=== PATIENT | male | born 1950 | race Caucasian/White ===

== ENCOUNTER 2020-06-25 12:00 | Outpatient (RCR) | payer MEDICARE, BC, SELFPAY | END 2020-06-25 12:58 | disposition other institution (70) | LOC: HO.PT 12:00 | PROVIDERS: PCP Internal Medicine; Visit Provider Specialist | DX: Z47.89 Encounter for other orthopedic aftercare (principal) | CPT/HCPCS: 97110; 97112; 97116; 97162 ==

== ENCOUNTER 2020-12-01 14:00 | Outpatient (RCR) | payer MEDICARE, BC, SELFPAY | END 2020-12-03 09:00 | disposition home or self-care (01) | LOC: HO.PT 14:00 | PROVIDERS: PCP Internal Medicine; Visit Provider Internal Medicine | DX: M50.020 Cervical disc disorder with myelopathy, mid-cervical region, unspecified level (principal) | CPT/HCPCS: 97110; 97112; 97116; 97162; 97530 ==

== ENCOUNTER 2022-07-13 04:57 | Inpatient (IN) | payer MEDICARE, BC, SELFPAY ==
[2022-07-13] VITALS (8 sets, daily range): BP systolic 98–140; BP diastolic 47–80; PULSE 67–102; RESP 16–22; TEMP 36.8–37.4; O2SAT 93–98; BMI 24.1
--- NOTE | ~2022-07-13 | XR_ITS ---
EXAMINATION: XR CHEST CLINICAL INFORMATION: Cough COMPARISON: None TECHNIQUE: Frontal view of the chest was obtained. FINDINGS: Normal symmetric lung volumes. Right lower lobe/basilar opacity partially obscures the medial right hemidiaphragm. No pleural effusion. No pneumothorax. Cardiomediastinal silhouette and pulmonary vascularity are within normal limits. Aorta is atherosclerotic. No acute osseous abnormalities. XR/XR chest 1V IMPRESSION: Right lower lobe/basilar opacity could represent atelectasis or infiltrate.
--- NOTE | 2022-07-13 05:03 | ECG_ITS ---
Test Reason : weakness Blood Pressure : / mmHG Vent. Rate : 089 BPM Atrial Rate : 089 BPM P-R Int : 160 ms QRS Dur : 072 ms QT Int : 344 ms P-R-T Axes : 056 041 091 degrees QTc Int : 418 ms Normal sinus rhythm Nonspecific ST and T wave abnormality Abnormal ECG No previous ECGs available Referred By: Gracie Brito Electronically Signed By:JO ANN PINA
--- NOTE | 2022-07-13 05:36 | ED_ITS ---
HPI - Male Genitourinary General Chief complaint: Urogenital-Male Stated complaint: uti? sepsis? Time Seen by Provider: 07/13/22 05:01 Source: patient Mode of arrival: EMS History of Present Illness HPI Narrative: 71-year-old male states that he went to work yesterday but then throughout the day he began to feel worse and worse and reports that he has had multiple at difficulties with urinating that he describes as urinary frequency but otherwise denies any shortness of breath/chest pain, he also denies any nausea, vomiting, abdominal pain but states that he has been sweating and suffers from chills. He denies any history of renal colic. Related Data Allergies Allergy/AdvReac Type Severity Reaction Status Date / Time Unable to Assess Allergy Verified 07/13/22 05:02 Review of Systems Review of Systems: Pertinent positives and negatives as stated in HPI [facility] Past Medical History Source: nursing notes reviewed Social History Social History Alcohol intake: former Smoked in Last 30 Days: No Use of substances other than those prescribed or required for medical reasons: No Advance Directives: No Advance Directives Information Provided: Yes Physical Exam Vital Signs: Vital Signs: Last Vital Signs Temp 99.3 F 07/13/22 05:03 Pulse 76 07/13/22 06:32 Resp 16 07/13/22 06:32 BP 102/47 L 07/13/22 06:32 Pulse Ox 95 07/13/22 06:32 O2 Del Method 07/13/22 06:32 BMI result Body Mass Index 24.1 VITAL SIGNS: Reviewed. GENERAL: Well developed, well nourished, in no acute distress. HEAD: Normocephalic/atraumatic EYES: PERRLA, EOMI OROPHARYNX: no oral lesions noted, posterior pharynx clear LUNGS: Normal breath sounds. No adventitious sounds or accessory muscle use. SpO2<93> CARDIOVASCULAR: Regular rate and rhythm without noted murmurs, no JVD or lower extremity edema. ABDOMEN: Soft, mild tenderness to palpation over suprapubic, non-distended with bowel sounds. MUSCULOSKELETAL: No tenderness, deformities, or effusions noted on gross inspection. EXTREMITIES: No cyanosis, clubbing or edema. SKIN: Inspection of the skin reveals no rashes, diaphoresis+ NEUROLOGIC: Alert and oriented x 3. Strength and sensation to light touch were grossly intact x 4. Medications Administered Discontinued Medications Generic Name Dose Route Start Last Admin Trade Name Freq PRN Reason Stop Dose Admin Ceftriaxone Sodium 1 gm/ 50 mls @ 100 mls/hr 07/13/22 05:21 07/13/22 06:18 Sodium Chloride IV 07/13/22 05:50 Infused ONCE ONE Infusion Sodium Chloride 1,000 mls @ 999 mls/hr 07/13/22 05:30 07/13/22 05:43 Ns IV 07/13/22 06:30 999 mls/hr .Q1H1M [place] Administration Medical Decision Making Medical Decision Making [facility] Narrative: 0502: This is a 71-year-old male with history and clinical presentation suggestive of sepsis with UTI. Patient received labs, IV fluids, lactic acid, blood cultures, antibiotics. Reviewed all investigations and my interpretation is that this patient has sepsis acute UTI, he received antibiotics already, I acknowledge that chest x- ray shows possible atelectasis versus infiltrate, based on the absence of cough or difficulty breathing I feel that this is more consistent with atelectasis. I did notify the hospitalist and patient is acute for admission. Differential Diagnosis Please see the discussion above Admission/Observation Consideration of admission/observation: Escalation of care including admission/observation considered Patient will be admitted Consult Healthcare Provider Management of the patient was discussed with: Hospitalist [id number]: I discussed this with the hospitalist who will review the case. Lab Data Please see the discussion above 07/13/22 05:41 07/13/22 05:41 Labs: Lab Results 07/13/22 07/13/22 07/13/22 Range/Units 05:41 05:41 05:41 WBC 11.9 H (4.8-10.8) X10*3/uL RBC 4.19 L (4.60-5.80) X10*6/uL Hgb 12.9 L (14.0-18.0) g/dl Hct 37.3 L (42.0-52.0) % MCV 89.0 (80.0-98.0) fL MCH 30.8 (27.0-33.0) pg MCHC 34.6 (31.0-36.0) g/dl RDW 11.5 (11.0-16.0) % Plt Count 185 (160-400) X10*3/uL MPV 10.5 (9.4-12.4) fL Immature Gran % (Auto) 0.7 H (0.0-0.4) % Neut % (Auto) 85.1 H (45-73) % Lymph % (Auto) 6.1 L (20-40) % [place] % (Auto) 7.8 (2-11) % Eos % (Auto) 0.1 (0-4) % Baso % (Auto) 0.2 (0-2) % Lymph # (Auto) 0.7 L (1.2-4.9) X10*3/uL [place] # (Auto) 0.9 (0.1-1.2) X10*3/uL Eos # (Auto) 0.0 (0.0-0.4) X10*3/uL Baso # (Auto) 0.0 (0.0-0.2) X10*3/uL Abs Immat Gran (auto) 0.08 H (0.00-0.03) X10*3/uL Absolute Neuts (auto) 10.1 H (2.0-8.3) x10*3/uL Absolute Nucleated RBC 0.000 (0.0-0.012) X10*3/uL Nucleated RBC % (auto) 0.0 (0.0-0.2) /100WBC PT 13.3 H (10.0-13.1) SEC INR 1.2 H (0.9-1.1) Sodium 135 (135-145) mmol/L Potassium 4.1 (3.3-5.1) mmol/L Chloride 103 (96-108) mmol/L Carbon Dioxide 23 (22-29) mmol/L Anion Gap 13 (12-20) BUN 14 (9-16) mg/dL Creatinine 0.80 (0.5-1.4) mg/dL Estim Creat Clear Calc 95.6 Estimated GFR > 60 Random Glucose 111 (60-115) mg/dL Lactic Acid (0.5-2.0) mmol/L Calcium 8.3 L (8.4-10.2) mg/dL Total Bilirubin 1.0 (0.0-1.0) mg/dL AST 36 (5-37) U/L ALT 23 (0-40) U/L Alkaline Phosphatase 64 (39-117) U/L Total Protein 5.9 L (6.5-8.0) g/dL Albumin 3.8 (3.5-5.0) g/dL Urine Color Urine Appearance Urine pH (5.0-9.0) Ur Specific [place] (1.005-1.025) Urine Protein (Neg-Trace) mg/dL Urine Glucose (UA) (Negative) mg/dL Urine Ketones (Negative) mg/dL Urine Blood (Negative) Urine Nitrite (Negative) Ur Leukocyte Esterase (Negative) Urine RBC (0-2) /HPF Urine WBC (0-5) /HPF Ur Squamous Epith Cells (0-2) /HPF Urine Bacteria (None Seen) Hyaline Casts (0-2) /LPF COVID-19 (KOLE) (Negative) COVID-19 Clin Com 07/13/22 07/13/22 07/13/22 Range/Units 05:41 05:41 05:57 WBC (4.8-10.8) X10*3/uL RBC (4.60-5.80) X10*6/uL Hgb (14.0-18.0) g/dl Hct (42.0-52.0) % MCV (80.0-98.0) fL MCH (27.0-33.0) pg MCHC (31.0-36.0) g/dl RDW (11.0-16.0) % Plt Count (160-400) X10*3/uL MPV (9.4-12.4) fL Immature Gran % (Auto) (0.0-0.4) % Neut % (Auto) (45-73) % Lymph % (Auto) (20-40) % [place] % (Auto) (2-11) % Eos % (Auto) (0-4) % Baso % (Auto) (0-2) % Lymph # (Auto) (1.2-4.9) X10*3/uL [place] # (Auto) (0.1-1.2) X10*3/uL Eos # (Auto) (0.0-0.4) X10*3/uL Baso # (Auto) (0.0-0.2) X10*3/uL Abs Immat Gran (auto) (0.00-0.03) X10*3/uL Absolute Neuts (auto) (2.0-8.3) x10*3/uL Absolute Nucleated RBC (0.0-0.012) X10*3/uL Nucleated RBC % (auto) (0.0-0.2) /100WBC PT (10.0-13.1) SEC INR (0.9-1.1) Sodium (135-145) mmol/L Potassium (3.3-5.1) mmol/L Chloride (96-108) mmol/L Carbon Dioxide (22-29) mmol/L Anion Gap (12-20) BUN (9-16) mg/dL Creatinine (0.5-1.4) mg/dL Estim Creat Clear Calc Estimated GFR Random Glucose (60-115) mg/dL Lactic Acid 1.1 (0.5-2.0) mmol/L Calcium (8.4-10.2) mg/dL Total Bilirubin (0.0-1.0) mg/dL AST (5-37) U/L ALT (0-40) U/L Alkaline Phosphatase (39-117) U/L Total Protein (6.5-8.0) g/dL Albumin (3.5-5.0) g/dL Urine Color Yellow Urine Appearance Cloudy Urine pH 6.0 (5.0-9.0) Ur Specific [place] 1.025 (1.005-1.025) Urine Protein 100 (2+) H (Neg-Trace) mg/dL Urine Glucose (UA) Negative (Negative) mg/dL Urine Ketones 15 (Negative) mg/dL Urine Blood Large (3+) H (Negative) Urine Nitrite Positive H (Negative) Ur Leukocyte Esterase Large (3+) H (Negative) Urine RBC 3-5 H (0-2) /HPF Urine WBC >50 H (0-5) /HPF Ur Squamous Epith Cells 0-2 (0-2) /HPF Urine Bacteria 4+ (None Seen) Hyaline Casts 3-5 (0-2) /LPF COVID-19 (KOLE) Negative (Negative) COVID-19 Clin Com See Note Independent Interpretation I performed an independent interpretation of an: EKG Interpretation: Normal sinus rhythm, HR-89, no STEMI, ST-T wave abnormalities in lateral leads, [place]/QRS/QTC is within normal limits. Radiology Impression Radiologist Impression: My interpretation is in agreement with the radiology impression of the imaging study. Critical Care Time Critical Care Time Critical Care Time: Yes Total Critical Care Time: 45 Attestation: I personally attest to this time spent taking care of the patient. Discharge Plan Discharge Clinical Impression: Sepsis, Acute UTI, Altered mental status Patient Disposition: Admitted As Inpatient
[2022-07-13] MEDS: 0.9 % Sodium Chloride 1,000 ML 999 ML IV (05:43)
[2022-07-13] MEDS: cefTRIAXone sodium 1 GM in 0.9 % Sodium Chloride 50 ML IV (05:44)
[2022-07-13 05:47] LABS: MANUAL DIFF FLAG NO
[2022-07-13 05:49] LABS: Basophils Percent Auto 0.2 % (0-2); Eosinophils Percent Auto 0.1 % (0-4); Hematocrit 37.3 % (42.0-52.0); Hemoglobin 12.9 g/dl (14.0-18.0); Imm Gran Abs Auto 0.08 X10*3/uL (0.00-0.03); Imm Gran Pct Auto 0.7 % (0.0-0.4); Lymphocytes Absolute Auto 0.7 X10*3/uL (1.2-4.9); Lymphocytes Percent Auto 6.1 % (20-40); Mean Corpuscular HGB Conc 34.6 g/dl (31.0-36.0); Mean Corpuscular Hemoglobin 30.8 pg (27.0-33.0); Mean Platelet Volume 10.5 fL (9.4-12.4); Monocytes Absolute Auto 0.9 X10*3/uL (0.1-1.2); Monocytes Percent Auto 7.8 % (2-11); Neutrophils Absolute Auto 10.1 x10*3/uL (2.0-8.3); Neutrophils Percent Auto 85.1 % (45-73); Platelet Count 185 X10*3/uL (160-400); Red Blood Count 4.19 X10*6/uL (4.60-5.80); Red Cell Distribution Width 11.5 % (11.0-16.0); White Blood Count 11.9 X10*3/uL (4.8-10.8)
[2022-07-13 05:55] LABS: INTERNATIONAL NORM RATIO 1.2 (0.9-1.1); Prothrombin Time 13.3 SEC (10.0-13.1)
[2022-07-13 06:00] LABS: Lactic Acid 1.1 mmol/L (0.5-2.0)
[2022-07-13 06:05] LABS: Alanine Aminotransferase 23 U/L (0-40); Albumin Level 3.8 g/dL (3.5-5.0); Alkaline Phosphatase 64 U/L (39-117); Anion Gap 13 (12-20); Aspartate Amino Transferase 36 U/L (5-37); Blood Urea Nitrogen 14 mg/dL (9-16); COVID-19 Test Negative (Negative); Calcium 8.3 mg/dL (8.4-10.2); Carbon Dioxide 23 mmol/L (22-29); Chloride 103 mmol/L (96-108); Creatinine Clr Calc Pharmacy 95.6; Estimated Glomerular Filt Rate > 60; Glucose Random 111 mg/dL (60-115); IDNOW Serial# 6674DD1D; Potassium 4.1 mmol/L (3.3-5.1); Sodium 135 mmol/L (135-145); Total Protein 5.9 g/dL (6.5-8.0)
[2022-07-13 06:08] LABS: Appearance Urine Cloudy; Color Urine Yellow; Glucose Urine UA Negative (Negative); Leukocyte Esterase Urine Large (3+) (Negative); Nitrite Urine Positive (Negative); Specific Gravity - Urine 1.025 (1.005-1.025); UMIC TRIGGER UACC YES; Urine Blood Large (3+) (Negative); Urine Ketones 15 mg/dL (Negative); Urine Protein 100 (2+) mg/dL (Neg-Trace)
[2022-07-13 06:19] LABS: Bacteria Urine 4+ (None Seen); Squamous Epithelial Cell Urine 0-2 /HPF (0-2); UACC Culture Trigger YES; WBC Urine >50 /HPF (0-5)
--- NOTE | 2022-07-13 06:46 | PC.NURSE ---
Pt A&Ox3, forgetful. Denies any pain. Pt sweaty and warm to touch. Reports difficulty and urine urgency. Pt bladder scanned and Pt was able to give urine sample. IV line placed, blood work collected and sent to lab.
--- NOTE | 2022-07-13 08:11 | PHA.MEDREC ---
Pharmacy Consult ? Medication Reconciliation Pharmacy has completed the medication reconciliation.
--- NOTE | 2022-07-13 08:15 | MHC.EDTECH ---
patient was soiled. patient was cleaned, given a new pad, bernardo and blanket. patient was satisfied.
--- NOTE | 2022-07-13 09:13 | PC.NURSE ---
nad, skin wpd, no complaints, family at bedside, awaiting hospitalist
--- NOTE | 2022-07-13 12:46 | P.HPHOSP_ITS ---
History of Present Illness Date of Service: 07/13/22 Chief Complaint: confusion 71 year old man with history of depression presenting to the ED feeling unwell the last few days with urinary frequency and dysuria while at work. He denied fever, chills, nausea, vomiting, chest pain or sob. He did have some chills, and sweating. His family did feel like he seemed to be a little bit confused which is not typical for him. 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 In the ER, labs within acceptable limits, vital signs stable, no fever or leukocytosis noted. UA positive. He received a dose of Rocephin in the ED. He will be admitted for further management of encephalopathy secondary to UTI. Review of Systems Review of Systems: Denies any recent fever chills or decrease in appetite respiratory denies any shortness of breath coverage production cardiovascular Denied chest pain gastrointestinal denies any dysphagia abdominal pain nausea vomiting or diarrhea genitourinary denies any dysuria frequency or hematuria musculoskeletal denies any joint pain or swelling neuropsych denies any weakness or seizures all other systems reviewed are negative [facility] Medical History (Updated 07/13/22 @ 14:37 by Gail Kidd NP) Depression Pertinent family history: Denied cardiac disease Surgical History (Updated 07/13/22 @ 14:37 by Gail Kidd NP) History of tonsillectomy Previous back surgery Social History Alcohol intake: former Smoked in Last 30 Days: No Use of substances other than those prescribed or required for medical reasons: No Advance Directives: No Advance Directives Information Provided: Yes Meds Allergies Allergy/AdvReac Type Severity Reaction Status Date / Time Unable to Assess Allergy Verified 07/13/22 05:02 Active Medications: Current Medications Sodium Chloride (0.9 % Sodium Chloride Flush 3 Ml Syringe) 3 ml [facility] [place] Medications Medication Instructions Recorded Confirmed Last Taken Type bupropion HCl 300 mg 24 hr tablet, 1 tab PO QAM 07/13/22 07/13/22 Unknown History extended release paroxetine HCl 40 mg tablet 1 tab PO DAILY 07/13/22 07/13/22 Unknown History quetiapine 25 mg tablet 1 tab PO BEDTIME 07/13/22 07/13/22 Unknown History Physical Exam Vital Signs and Narrative: Vital Signs: Last Vital Signs Temp 99.3 F 07/13/22 05:03 Pulse 80 07/13/22 10:00 Resp 17 07/13/22 10:00 BP 104/66 07/13/22 10:00 Pulse Ox 95 07/13/22 10:00 O2 Del Method 07/13/22 06:51 BMI result Body Mass Index 24.1 Appearing in no acute distress head is normocephalic atraumatic eyes pupils are PERRLA sclera is anicteric mouth throat mucous membranes are intact and moist neck is supple no lymphadenopathy, no JVD noted lung sounds are clear to auscultation heart regular rate rhythm, clear S1, S2 positive bowel sounds, abdomen is soft, nontender neuro patient is alert x3, no focal deficits Results Labs 07/13/22 05:41 07/13/22 05:41 Labs: Laboratory Results - last 24 hr 07/13/22 07/13/22 07/13/22 05:41 05:41 05:41 MCV 89.0 MCH 30.8 MCHC 34.6 RDW 11.5 Plt Count 185 MPV 10.5 Immature Gran % (Auto) 0.7 H Neut % (Auto) 85.1 H Lymph % (Auto) 6.1 L [place] % (Auto) 7.8 Eos % (Auto) 0.1 Baso % (Auto) 0.2 Lymph # (Auto) 0.7 L [place] # (Auto) 0.9 Eos # (Auto) 0.0 Baso # (Auto) 0.0 Abs Immat Gran (auto) 0.08 H Absolute Neuts (auto) 10.1 H Absolute Nucleated RBC 0.000 Nucleated RBC % (auto) 0.0 PT 13.3 H INR 1.2 H Anion Gap 13 Estim Creat Clear Calc 95.6 Estimated GFR > 60 Random Glucose 111 Lactic Acid Calcium 8.3 L Total Bilirubin 1.0 AST 36 ALT 23 Alkaline Phosphatase 64 Total Protein 5.9 L Albumin 3.8 Urine Color Urine Appearance Urine pH Ur Specific [place] Urine Protein Urine Glucose (UA) Urine Ketones Urine Blood Urine Nitrite Ur Leukocyte Esterase Urine RBC Urine WBC Ur Squamous Epith Cells Urine Bacteria Hyaline Casts COVID-19 (KOLE) COVID-19 Clin Com 07/13/22 07/13/22 07/13/22 05:41 05:41 05:57 MCV MCH MCHC RDW Plt Count MPV Immature Gran % (Auto) Neut % (Auto) Lymph % (Auto) [place] % (Auto) Eos % (Auto) Baso % (Auto) Lymph # (Auto) [place] # (Auto) Eos # (Auto) Baso # (Auto) Abs Immat Gran (auto) Absolute Neuts (auto) Absolute Nucleated RBC Nucleated RBC % (auto) PT INR Anion Gap Estim Creat Clear Calc Estimated GFR Random Glucose Lactic Acid 1.1 Calcium Total Bilirubin AST ALT Alkaline Phosphatase Total Protein Albumin Urine Color Yellow Urine Appearance Cloudy Urine pH 6.0 Ur Specific [place] 1.025 Urine Protein 100 (2+) H Urine Glucose (UA) Negative Urine Ketones 15 Urine Blood Large (3+) H Urine Nitrite Positive H Ur Leukocyte Esterase Large (3+) H Urine RBC 3-5 H Urine WBC >50 H Ur Squamous Epith Cells 0-2 Urine Bacteria 4+ Hyaline Casts 3-5 COVID-19 (KOLE) Negative COVID-19 Clin Com See Note Imaging Radiologist's Impressions: Impressions Chest X-Ray 07/13/22 05:14 IMPRESSION: Right lower lobe/basilar opacity could represent atelectasis or infiltrate. Assessment and Plan (1) Acute UTI: Status: Acute Plan 71 year old man admitted with acute toxic metabolic encephalopathy secondary to UTI Acute toxic metabolic encephalopathy Secondary to UTI Treat infection Follow blood culture Urinary tract infection No sepsis Start Rocephin follow final cultures Normocytic anemia No signs of bleeding Mental health Continue home medications DVT prophylaxis with heparin Attending Dr. Paiz Full code Patient required 2 inpatient midnights for treatment of acute encephalopathy and acute UTI requiring IV antibiotics and following cultures Time Spent With Patient Time: Total time managing care of this patient today ____ minutes. Quality Stroke Does the patient have a stroke diagnosis?: No VTE Prior VTE?: No VTE Risk Level:: Medical - moderate - high VTE Device Contraindication: Patient Refused VTE Drug Contraindication: N/A - Med Ordered
--- NOTE | 2022-07-13 12:46 | PM.DS ---
DS: Providers Provider Primary care physician: Lawrence Santoyo MD DS: Summary Time Spent with Patient Time attestation: Total time managing care of this patient today ____ minutes. Physical Exam Vital Signs: Vital Signs: Last Vital Signs Temp 99.3 F 07/13/22 05:03 Pulse 80 07/13/22 10:00 Resp 17 07/13/22 10:00 BP 104/66 07/13/22 10:00 Pulse Ox 95 07/13/22 10:00 O2 Del Method 07/13/22 06:51 BMI result Body Mass Index 24.1 DS: Data Data Completed and Pending Labs on day of discharge: Laboratory Results - last 24 hr 07/13/22 07/13/22 07/13/22 05:41 05:41 05:41 WBC 11.9 H RBC 4.19 L Hgb 12.9 L Hct 37.3 L MCV 89.0 MCH 30.8 MCHC 34.6 RDW 11.5 Plt Count 185 MPV 10.5 Immature Gran % (Auto) 0.7 H Neut % (Auto) 85.1 H Lymph % (Auto) 6.1 L [place] % (Auto) 7.8 Eos % (Auto) 0.1 Baso % (Auto) 0.2 Lymph # (Auto) 0.7 L [place] # (Auto) 0.9 Eos # (Auto) 0.0 Baso # (Auto) 0.0 Abs Immat Gran (auto) 0.08 H Absolute Neuts (auto) 10.1 H Absolute Nucleated RBC 0.000 Nucleated RBC % (auto) 0.0 PT 13.3 H INR 1.2 H Sodium 135 Potassium 4.1 Chloride 103 Carbon Dioxide 23 Anion Gap 13 BUN 14 Creatinine 0.80 Estim Creat Clear Calc 95.6 Estimated GFR > 60 Random Glucose 111 Lactic Acid Calcium 8.3 L Total Bilirubin 1.0 AST 36 ALT 23 Alkaline Phosphatase 64 Total Protein 5.9 L Albumin 3.8 Urine Color Urine Appearance Urine pH Ur Specific [place] Urine Protein Urine Glucose (UA) Urine Ketones Urine Blood Urine Nitrite Ur Leukocyte Esterase Urine RBC Urine WBC Ur Squamous Epith Cells Urine Bacteria Hyaline Casts COVID-19 (KOLE) COVID-19 Clin Com 07/13/22 07/13/22 07/13/22 05:41 05:41 05:57 WBC RBC Hgb Hct MCV MCH MCHC RDW Plt Count MPV Immature Gran % (Auto) Neut % (Auto) Lymph % (Auto) [place] % (Auto) Eos % (Auto) Baso % (Auto) Lymph # (Auto) [place] # (Auto) Eos # (Auto) Baso # (Auto) Abs Immat Gran (auto) Absolute Neuts (auto) Absolute Nucleated RBC Nucleated RBC % (auto) PT INR Sodium Potassium Chloride Carbon Dioxide Anion Gap BUN Creatinine Estim Creat Clear Calc Estimated GFR Random Glucose Lactic Acid 1.1 Calcium Total Bilirubin AST ALT Alkaline Phosphatase Total Protein Albumin Urine Color Yellow Urine Appearance Cloudy Urine pH 6.0 Ur Specific [place] 1.025 Urine Protein 100 (2+) H Urine Glucose (UA) Negative Urine Ketones 15 Urine Blood Large (3+) H Urine Nitrite Positive H Ur Leukocyte Esterase Large (3+) H Urine RBC 3-5 H Urine WBC >50 H Ur Squamous Epith Cells 0-2 Urine Bacteria 4+ Hyaline Casts 3-5 COVID-19 (KOLE) Negative COVID-19 Clin Com See Note Discharge Plan Discharge Clinical Impression: Sepsis, Acute UTI, Altered mental status Patient Disposition: Admitted As Inpatient
--- NOTE | 2022-07-13 12:58 | MHC.EDTECH ---
patient asked for some help. patient had some urine on his bernardo and one of the pads on his bed. patient asked for some pants and he was also given some socks. patient requested some water and nurse stated that he could have some. patient is comfortable at this time.
[2022-07-13] MEDS: buPROPion HCl XL 300 MG TAB.ER.24H PO (13:09)
[2022-07-13] MEDS: Heparin Sodium,Porcine 5,000 UNIT/ML VIAL 5000 UNIT SUBCUT (13:09)
[2022-07-13] MEDS: 0.9 % Sodium Chloride Flush 3 ML SYRINGE IVFLUSH ×2 (16:28→20:46)
--- NOTE | 2022-07-13 16:41 | PM.EVENT ---
Event Note Date of Service: 07/13/22 Event Note: Patient seen and examined: Came to the hospital urinary frequency and dysuria? No cough or phlegm. This patient is seen and examined with APC. Lab imaging UA abnormal positive for pyuria and bacteriuria. Urine and blood culture pending Chest x-ray-? Atelectasis versus infiltrate(seems more likely atelectasis.) Patient had mild leukocytosis, no fever Physical exam and assessment and plan coordinated in APCs note, Agree with the plan in addition: Toxic metabolic encephalopathy possible secondary to UTI: continue ceftriaxone cxr-morelikely atelactasis-if new respiratory symptoms then consider repeating chest x-ray. Incentive spirometry and chest physiotherapy,nebs Time Spent With Patient Time: Total time managing care of this patient today ____ minutes.
[2022-07-13] MEDS: QUEtiapine Fumarate 25 MG TABLET PO (20:46)
[2022-07-14 03:20] VITALS: BP 106/56; PULSE 58; RESP 16; TEMP 36.9; O2SAT 94
[2022-07-14] MEDS: Heparin Sodium,Porcine 5,000 UNIT/ML VIAL 5000 UNIT SUBCUT ×2 (03:20→14:01)
[2022-07-14] MEDS: cefTRIAXone sodium 1 GM in 0.9 % Sodium Chloride 50 ML IV (05:34)
[2022-07-14 06:15] LABS: MANUAL DIFF FLAG NO
[2022-07-14 06:20] LABS: Basophils Percent Auto 0.3 % (0-2); Eosinophils Percent Auto 0.4 % (0-4); Hematocrit 37.2 % (42.0-52.0); Hemoglobin 12.5 g/dl (14.0-18.0); Imm Gran Abs Auto 0.04 X10*3/uL (0.00-0.03); Imm Gran Pct Auto 0.4 % (0.0-0.4); Lymphocytes Absolute Auto 1.8 X10*3/uL (1.2-4.9); Lymphocytes Percent Auto 17.7 % (20-40); Mean Corpuscular HGB Conc 33.6 g/dl (31.0-36.0); Mean Corpuscular Hemoglobin 30.1 pg (27.0-33.0); Mean Corpuscular Volume 89.6 fL (80.0-98.0); Mean Platelet Volume 10.8 fL (9.4-12.4); Monocytes Percent Auto 9.8 % (2-11); Neutrophils Absolute Auto 7.3 x10*3/uL (2.0-8.3); Neutrophils Percent Auto 71.4 % (45-73); Platelet Count 181 X10*3/uL (160-400); Red Blood Count 4.15 X10*6/uL (4.60-5.80); Red Cell Distribution Width 11.8 % (11.0-16.0); White Blood Count 10.2 X10*3/uL (4.8-10.8)
[2022-07-14 06:51] LABS: Anion Gap 13 (12-20); Blood Urea Nitrogen 10 mg/dL (9-16); Calcium 8.3 mg/dL (8.4-10.2); Carbon Dioxide 22 mmol/L (22-29); Chloride 108 mmol/L (96-108); Creatinine Clr Calc Pharmacy 121.4; Estimated Glomerular Filt Rate > 60; Glucose Random 96 mg/dL (60-115); Potassium 3.8 mmol/L (3.3-5.1); Sodium 139 mmol/L (135-145)
[2022-07-14] MEDS: buPROPion HCl XL 300 MG TAB.ER.24H PO (07:50)
[2022-07-14] MEDS: PARoxetine HCL 40 MG TABLET PO (07:51)
[2022-07-14 07:52] VITALS: RESP 18; O2SAT 96
--- NOTE | 2022-07-14 09:25 | HO.PM.IMPN ---
Subjective Subjective Date of Service: 07/14/22 Review of Systems Follow-up encephalopathy and UTI Feeling much better today Denies nausea, vomiting, abdominal pain Physical Exam Vital Signs: Vital Signs: Last Vital Signs Temp 98.4 F 07/14/22 03:20 Pulse 58 07/14/22 03:20 Resp 18 07/14/22 07:52 BP 106/56 L 07/14/22 03:20 Pulse Ox 94 07/14/22 03:20 O2 Del Method 07/14/22 03:20 BMI result Body Mass Index 24.1 Appearing in no acute distress lung sounds are clear to auscultation heart regular rate rhythm, clear S1, S2 positive bowel sounds, abdomen is soft, nontender neuro patient is alert x3, no focal deficits Objective Data Active Medications Acetaminophen (Acetaminophen 325 Mg Tablet) 650 mg PO Q6H PRN PRN Reason: Pain, Mild (Pain Scale 1-3) Bupropion HCl (Bupropion Hcl Xl 300 Mg Tab.Er.24h) 300 mg PO DAILY [facility] Last Admin: 07/14/22 07:50 Dose: 300 mg Documented By: SEBASTIAN Albuterol Sulfate 2.5 mg/ (Ipratropium [place] 0.5 mg) 0 mg INHALE RQ4H WHILE AWAKE [facility] Last Admin: 07/14/22 07:50 Dose: 1 each Documented By: RAYA Heparin Sodium (Porcine) (Heparin Sodium,Porcine 5,000 Unit/Ml Vial) 5,000 unit SUBCUT Q12H [facility] Last Admin: 07/14/22 03:20 Dose: 5,000 unit Documented By: CADENCE Ceftriaxone Sodium 1 gm/ (Sodium Chloride) 50 mls @ 100 mls/hr IV Q24H [facility] Last Infusion: 07/14/22 06:07 Dose: 0 mls/hr Documented By: CADENCE Ondansetron HCl (Ondansetron Hcl 4 Mg/2 Ml Vial) 4 mg IVPUSH Q8H PRN PRN Reason: Nausea and Vomiting Paroxetine HCl (Paroxetine Hcl 40 Mg Tablet) 40 mg PO DAILY [facility] Last Admin: 07/14/22 07:51 Dose: 40 mg Documented By: SEBASTIAN Quetiapine Fumarate (Quetiapine Fumarate 25 Mg Tablet) 25 mg PO BEDTIME [facility] Last Admin: 07/13/22 20:46 Dose: 25 mg Documented By: CADENCE Sodium Chloride (0.9 % Sodium Chloride Flush 3 Ml Syringe) 3 ml IVFLUSH QSHIFT [facility] Last Admin: 07/13/22 20:46 Dose: 3 ml Documented By: CADENCE Labs 07/14/22 05:34 07/14/22 05:34 Labs: Laboratory Results - last 24 hr 07/14/22 07/14/22 05:34 05:34 MCV 89.6 MCH 30.1 MCHC 33.6 RDW 11.8 Plt Count 181 MPV 10.8 Immature Gran % (Auto) 0.4 Neut % (Auto) 71.4 Lymph % (Auto) 17.7 L [place] % (Auto) 9.8 Eos % (Auto) 0.4 Baso % (Auto) 0.3 Lymph # (Auto) 1.8 [place] # (Auto) 1.0 Eos # (Auto) 0.0 Baso # (Auto) 0.0 Abs Immat Gran (auto) 0.04 H Absolute Neuts (auto) 7.3 Absolute Nucleated RBC 0.000 Nucleated RBC % (auto) 0.0 Anion Gap 13 Estim Creat Clear Calc 121.4 Estimated GFR > 60 Random Glucose 96 Calcium 8.3 L Microbiology Microbiology Results: Microbiology 07/13/22 Unknown Urine Culture - Preliminary Urine clean catch - Urine wong top Gram negative marie 07/13/22 05:41 Blood Culture - Preliminary Blood - Venous No growth after 24 hours. 07/13/22 05:41 Blood Culture - Preliminary Blood - Venous No growth after 24 hours. Assessment and Plan (1) Acute UTI: Status: Acute Plan 71 year old man admitted with acute toxic metabolic encephalopathy secondary to UTI Acute toxic metabolic encephalopathy> resolved Secondary to UTI Treat infection Follow blood culture GNR Urinary tract infection No sepsis cotninue Rocephin follow final cultures Normocytic anemia No signs of bleeding Mental health Continue home medications DVT prophylaxis with heparin Attending Dr. Paiz Full code cotninued hospital stay for treatment of acute encephalopathy and acute UTI requiring IV antibiotics and following cultures Time Spent With Patient Time: Total time managing care of this patient today ____ minutes. Quality Stroke Does the patient have a stroke diagnosis?: No VTE Prior VTE?: No VTE Risk Level:: Medical - moderate - high VTE Device Contraindication: Patient Refused VTE Drug Contraindication: N/A - Med Ordered
--- NOTE | 2022-07-14 09:55 | MHC.CM.PN ---
PATIENT LIVES WITH HIS /HCP (COPY REQUESTED) WHEN ASKED IF HE WOULD LIKE TO COMPLETE A HCP HERE, HE DENIES. PATIENT HAS A WALKING STICK AND RECENTLY WAS GIFTED A 3-PRONG CANE. 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 CLEMENT ANDERSON X 2. IMM 07/14 IN CHART PLAN IS CURRENTLY HOME WITH NO SERVICE NEEDS
[2022-07-14] MEDS: polyethylene glycoL 3350 17 GM POWD.PACK PO (10:45)
[2022-07-14] MEDS: 0.9 % Sodium Chloride Flush 3 ML SYRINGE IVFLUSH ×3 (10:45→20:49)
[2022-07-14 15:34] VITALS: BP 114/67; PULSE 71; RESP 18; TEMP 36.4; O2SAT 97
[2022-07-14 19:54] VITALS: BP 109/55; PULSE 85; RESP 18; TEMP 37; O2SAT 94
[2022-07-14] MEDS: QUEtiapine Fumarate 25 MG TABLET PO (20:45)
[2022-07-15] MEDS: Heparin Sodium,Porcine 5,000 UNIT/ML VIAL 5000 UNIT SUBCUT (01:52)
[2022-07-15 04:00] VITALS: BP 137/84; PULSE 71; RESP 18; TEMP 36.7; O2SAT 97
[2022-07-15] MEDS: cefTRIAXone sodium 1 GM in 0.9 % Sodium Chloride 50 ML IV (05:03)
[2022-07-15] MEDS: 0.9 % Sodium Chloride Flush 3 ML SYRINGE IVFLUSH (07:43)
[2022-07-15] MEDS: PARoxetine HCL 40 MG TABLET PO (07:43)
[2022-07-15] MEDS: polyethylene glycoL 3350 17 GM POWD.PACK PO (07:43)
[2022-07-15] MEDS: buPROPion HCl XL 300 MG TAB.ER.24H PO (07:43)
[2022-07-15 08:00] VITALS: BP 120/74; PULSE 75; RESP 18; TEMP 36.2; O2SAT 96
[2022-07-15 08:27] VITALS: PULSE 77; RESP 16; O2SAT 98
--- NOTE | 2022-07-15 10:21 | PM.DS ---
DS: Providers Provider Date of Service: 07/15/22 Date of admission: 07/13/22 12:44 Primary care physician: Lawrence Santoyo MD Attending physician on discharge: Mainor Coley Discharging clinician: Becky Samuels DS: Diagnosis Discharge Diagnosis (1) Acute UTI: Status: Acute DS: Summary Hospital Course Hospital Course: From H&P on day of admission 71 year old man with history of depression presenting to the ED feeling unwell the last few days with urinary frequency and dysuria while at work. He denied fever, chills, nausea, vomiting, chest pain or sob. He did have some chills, and sweating. His family did feel like he seemed to be a little bit confused which is not typical for him.? 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 ? In the ER, labs within acceptable limits, vital signs stable, no fever or leukocytosis noted. UA positive. He received a dose of Rocephin in the ED. He will be admitted for further management of encephalopathy secondary to UTI. Toxic Metabolic Encephalopathy secondary to acute UTI. Patient was started on treatment with IV ceftriaxone. Urine culture grew E coli sensitive to ceftriaxone. Blood cultures have remained negative. Patient has returned back to his baseline mental status. He has remained afebrile and will be discharged home to complete 7 day course of oral antibiotics. Time Spent with Patient Time attestation: Total time managing care of this patient today ____ minutes. Discharge coordination time: Greater than 30 minutes Quality: Safe Use of Opioids Does Pt have an Active Cancer Diagnosis on the Problem List?: No Quality: Stroke Does the patient have a stroke diagnosis?: No Physical Exam Vital Signs: Vital Signs: Last Vital Signs Temp 97.1 F 07/15/22 08:00 Pulse 77 07/15/22 08:27 Resp 16 07/15/22 08:27 BP 120/74 07/15/22 08:00 Pulse Ox 96 07/15/22 08:00 O2 Del Method 07/15/22 08:00 BMI result Body Mass Index 24.1 Const: General: cooperative, comfortable and alert DS: Data Data Completed and Pending Labs on day of discharge: Preliminary micro results at discharge 07/13/22 05:41 Blood Culture - Preliminary Blood - Venous No growth after 48 hours. 07/13/22 05:41 Blood Culture - Preliminary Blood - Venous No growth after 48 hours. Discharge Plan Discharge Anticipated Discharge Date/Time: 07/15/22 10:18 Patient Disposition: Home, Self-Care Discharge Diagnosis: UTI Referrals: Lawrence Santoyo MD [Primary Care Provider] - 1 Week Discharge Medications: New cefuroxime axetil 250 mg tablet 250 mg PO BID 5 Days Qty: 10 0RF Continued quetiapine 25 mg tablet 1 tab PO BEDTIME paroxetine HCl 40 mg tablet 1 tab PO DAILY bupropion HCl 300 mg tablet extended release 24 hr 1 tab PO QAM Discharge Orders: Discharge Order (Routine); Ordered 07/15/22 Ordered By: Becky Samuels Activity on Discharge: As tolerated Stand Alone Forms: Patient Portal Discharge page Care Plan Goals: see below Health Concerns: UTI Plan of Treatment: complete course of antibiotics as prescribed Assessment: call to schedule follow up with PCP as needed
--- NOTE | 2022-07-15 12:53 | MHC.CM.PN ---
HOME - SELF CARE TO [facility] HELPER AWARE OF PLAN
== END 2022-07-15 13:00 | disposition home or self-care (01) | DRG 689 ==
LOC: HO.ED 07:23 → HO.EDOVER 12:48 → HO.S3 13:03
PROVIDERS: Admitting Provider Nurse Practitioner Acute Care; Emergency Provider Student in an Organized Health Care Education/Training Program; PCP Internal Medicine; Visit Provider Physician Assistant Medical
DX: N39.0 Urinary tract infection, site not specified (principal); G92.8 Other toxic encephalopathy; J98.11 Atelectasis; B96.20 Unspecified Escherichia coli [E. coli] as the cause of diseases classified elsewhere; D64.9 Anemia, unspecified; F32.A Depression, unspecified; Z20.822 Contact with and (suspected) exposure to COVID-19; Z87.891 Personal history of nicotine dependence; Z79.899 Other long term (current) drug therapy
CPT/HCPCS: 36415; 71045; 80048; 80053; 81001; 83605; 85025; 85610; 87040; 87086; 87088; 87186; 87635; 93005; 94640; 99285; J0696; J1643

== ENCOUNTER 2022-10-19 07:14 | Outpatient (REF) | payer MEDICARE, BC, SELFPAY ==
--- NOTE | ~2022-10-19 | MR_ITS ---
EXAMINATION: MR CERVICAL SPINE WITHOUT CONTRAST CLINICAL INFORMATION: Cervical myelopathy COMPARISON: None TECHNIQUE: MRI of the cervical spine was obtained using routine sequences without contrast. FINDINGS: Postsurgical changes from C4 to C7 anterior cervical discectomy and fusion Cervical straightening. Trace retrolisthesis of C6 on C7 and trace anterolisthesis of C7 on T1 No suspicious marrow signal or focal osseous lesion. The vertebral body heights are maintained. The intervertebral discs are of normal height and signal. There is focal signal abnormality and cord thinning at C6 and to a lesser extent C6-C7, compatible with myelomalacia. No other cord signal abnormality is appreciated. Limited evaluation of the soft tissues of the neck without demonstrated abnormalities. The flow voids of the major cervical vessels are maintained. Normal appearance of the cervicomedullary junction and visualized posterior fossa SPINAL LEVELS: C2-C3: Minimal disc bulge. Mild facet arthropathy and uncovertebral hypertrophy. Mild bilateral neural foraminal narrowing. No significant spinal canal stenosis. C3-C4: Disc osteophyte complex, facet arthropathy, uncovertebral hypertrophy. Moderate central spinal canal stenosis. Severe bilateral neural foraminal narrowing. C4-C5: Postsurgical changes. Endplate spurring and facet arthropathy contribute to moderate to severe bilateral neural foraminal narrowing. No significant central spinal canal stenosis. C5-C6: Postsurgical changes. Endplate spurring and mild facet arthropathy contribute to mild to moderate bilateral neural foraminal narrowing. No significant central spinal canal stenosis. C6-C7: Postsurgical changes. Mild facet arthropathy and endplate spurring contribute to mild bilateral neural foraminal narrowing. No significant spinal canal stenosis. C7-T1: Facet arthropathy and mild uncovertebral hypertrophy. Mild to moderate bilateral neural foraminal narrowing. No significant spinal canal stenosis. MR/MR cervical spine wo con IMPRESSION: 1. Postsurgical changes from C4 to C7 anterior cervical discectomy and fusion. There is myelomalacia of the cervical cord at C6 and C6-C7. 2. Multilevel cervical spondylosis as described above, worst at the superior adjacent segment C3-C4 where there is moderate spinal canal stenosis and severe bilateral neural foraminal narrowing.
== END 2022-10-19 07:15 | disposition home or self-care (01) ==
LOC: HO.MRI 07:14
PROVIDERS: PCP Internal Medicine; Visit Provider Psychiatry & Neurology Neurology
DX: G95.9 Disease of spinal cord, unspecified (principal)
CPT/HCPCS: 72141

== ENCOUNTER 2023-06-15 09:00 | Outpatient (AMB) | payer MEDICARE, BC, SELFPAY ==
--- NOTE | 2023-06-15 09:19 | A.OFFVIS_ITS ---
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 Intake Note: Aneudy 72 yr old male who is left hand dominant presents today for his Left hand CTS. States his symptoms started 8-9 months ago and has worsen. Reports symptoms wakes him up at night. EMG done. States he is ready to discuss surgery. 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 HPI Details Aneudy is a 72 year old left hand dominant man who presents for a NCS review of his left hand numbness. He complains of numbness in the thumb, index, and middle fingers of his left hand. His symptoms are constant and worse at night, accompanied by pain at nighttime. He says his numbness is less bothersome during the day as he doesn't notice it when he is busy & active. He denies any numbness in his right hand. He would like to discuss surgery. 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 He reports difficulty with using stairs. [facility] Medical History (Updated 06/15/23 @ 09:40 by Raj Sanchez) Depression Surgical History Previous back surgery History of tonsillectomy Social History (Updated 06/15/23 @ 09:32 by BENITO Burris) Household Members: Family Housing: House Do you presently have visiting nurse or other home services: No Alcohol intake: former Patient Tobacco Use Status: Former Tobacco user service: No Current occupational status: employed Current occupation: left hand Review of Systems Const All systems reviewed & are unremarkable except as noted in HPI and below Physical Exam Const General: cooperative, healthy appearing and no acute distress Orientation/consciousness: patient oriented x3 HEENT Head: Yes normocephalic and Yes atraumatic Eyes EOM: EOMs intact bilaterally Resp Effort & Inspection: normal respiratory effort and able to speak in complete sentences Cardio Jugular venous distension: no JVD Skin General skin exam: turgor normal Rashes: no rashes Neuro General: patient oriented x3 Extrem Other: Evaluation of Left Upper Extremity: The patient is alert, oriented, and in no acute distress Neuro: Dense numbness in the median nerve distribution. normal sensation in the ulnar nerve distribution Early thenar atrophy No intrinsic wasting Weak APB muscle belly firing Good finger cross Vascular: Cap refill brisk ROM: He can make a fist and extend all his digits No locking or catching Skin: No lacerations or abrasions. General: No Ecchymosis. No Erythema or evidence of infection. Nerve Conduction Study: Severe left carpal tunnel syndrome, with mild chronic distal neuropathic changes in the median nerve. Dr. Kaur 03/15/23 Psych Appearance: grossly normal Affect: normal affect Attitude: cooperative Assessment & Plan Assessment & Plan (1) Carpal tunnel syndrome of left wrist: Code(s): G56.02 - Carpal tunnel syndrome, left upper limb Plan Assessment & Plan: 1. Left carpal tunnel syndrome, severe With dense numbness & early thenar atrophy I educated him about this condition I discussed operative and non-operative treatment options The patient would like to proceed with surgery The risks and benefits of operative treatment were discussed with the patient and the patient wishes to proceed with surgery. These risks include, but are not limited to risk of damage to blood vessels, nerves, tendons, infection, recurrence, incomplete relief of preoperative symptoms, persistent pain, possib le need for further surgery and the risks associated with regional blocks and anesthesia. The plan is to take the patient to the operating room sometime in the next few weeks for the following procedures: 1. Left carpal tunnel release, under local All of the preoperative paperwork including the consent was reviewed today. All the patient's questions were answered. The patient understands that they will be contacted by our nursing scheduler soon to schedule this procedure He denies Diabetes, blood thinners, asthma, heart, lung, kidney issues Scribed for Keshia Domingo MD by Raj Sanchez, regional medical director, on 06/15/23 at 9:50 AM, EST. Coding Level of Care Code Est Pt Level 4 (73761) Diagnoses Carpal tunnel syndrome of left wrist G56.02
== END 2023-06-15 09:57 | disposition home or self-care (01) ==
PROVIDERS: PCP Internal Medicine; Visit Provider Orthopaedic Surgery
DX: G56.02 Carpal tunnel syndrome, left upper limb (principal)
CPT/HCPCS: 99214

== ENCOUNTER → 2023-06-15 09:00 | Outpatient (BNVA) | payer MEDICARE, BC, SELFPAY | PROVIDERS: PCP Internal Medicine; Visit Provider Orthopaedic Surgery | DX: G56.02 Carpal tunnel syndrome, left upper limb (principal) | CPT/HCPCS: 99212 ==

== ENCOUNTER 2023-06-23 09:00 | Outpatient (RCR) | payer MEDICARE, BC, SELFPAY | END 2023-06-23 10:49 | disposition home or self-care (01) | LOC: HO.PT 09:00 | PROVIDERS: PCP Internal Medicine; Visit Provider Internal Medicine | DX: M48.061 Spinal stenosis, lumbar region without neurogenic claudication (principal); G95.9 Disease of spinal cord, unspecified | CPT/HCPCS: 97110; 97162 ==

== ENCOUNTER 2023-08-29 06:26 | Day surgery (SDC) | payer MEDICARE, BC, SELFPAY ==
[2023-08-29 07:23] VITALS: BMI 25.0
--- NOTE | 2023-08-29 07:54 | MHC.SHP ---
Pre-Procedural Eval Section A - 24 Hr Update-Section A only Date of Service: 08/29/23 The patient is an INPATIENT: No Changes since office visit: No Cold of Flu in the past 2 weeks, No New Medical Problems, No Changes in Medication and No Patient answered all questions The patient has been examined within 24 hours of the surgical procedure. The History & Physical has been completed within 30 days and I have reviewed it.: Yes Section B - Complete if H&P > 30 days Chief Complaint: Carpal tunnel syndrome, left upper limb Allergies: Allergies Allergy/AdvReac Type Severity Reaction Status Date / Time Unable to Assess Allergy Verified 06/15/23 09:32 Exam Exam Comment: Left carpal tunnel syndrome Plan Diagnosis/Plan: Unchanged I have reviewed the history and physical and performed a pertinent physical examination on my patient. No changes have occurred unless specified. Time Spent With Patient Time: Total time managing care of this patient today ____ minutes.
--- NOTE | 2023-08-29 07:54 | W.PM.OPN ---
Operative Note Operative Note Date of Service: 08/29/23 Narrative: Preop diagnosis: 1. Left Carpal tunnel syndrome Postop diagnosis: same Procedure: 1. Left Carpal tunnel release Surgeon: Keshia Domingo MD Anesthesia: local block using 1% lidocaine with epinephrine Findings: Thickened transverse carpal ligament. EBL: Less than 5 mL Specimens: None Complications: None Disposition: Brought to recovery room in stable condition Plan: Follow-up for 10-14 days for wound check and suture removal Indications: The patient is 72 years old, with left carpal tunnel syndrome that has been unresponsive to nonoperative management. The risks and benefits of operative treatment including but not limited to risk of damage to blood vessels, nerves, tendons, infection, persistent pain, persistent symptoms, or possible need for additional surgery were discussed with the patient and the patient wishes to proceed with surgery. Procedure: Once consent was obtained a local block was performed using a combination of 1% lidocaine with epinephrine. The patient was then brought back to the operating suite and placed on the operative table in supine position. The left upper extremity was prepped and draped in a standard surgical fashion. Once assured that we had a good block, a 2.0 cm longitudinal incision was made centered over the carpal tunnel. The incision was made through the skin to the subcutaneous tissues using a #15 blade. Dissection was made down to the level of the transverse carpal ligament with care being taken to protect the palmar cutaneous nerve. Once the transverse carpal ligament was clearly visualized, a longitudinal incision was made in the transverse carpal ligament 1st using a #15 blade, then using tenotomy scissors under direct visualization. Care was taken to look for and protect the motor branch of the median nerve when seen in this area. Once satisfied with our carpal tunnel release the wound was copiously irrigated with normal saline and hemostasis was obtained with a brief period of local pressure. The skin edges were reapproximated with some 5.0 nylon suture material and a sterile dressing was applied. The patient appears to have tolerated the procedure well and with no complications. All digits were well vascularized at the conclusion of the case.
[2023-08-29 08:55] VITALS: BP 140/71; PULSE 60; RESP 18; O2SAT 97
== END 2023-08-29 08:58 | disposition home or self-care (01) ==
PROVIDERS: PCP Internal Medicine; Visit Provider Orthopaedic Surgery
PROC: (CPT 64721; principal; 2023-08-29 07:30)
DX: G56.02 Carpal tunnel syndrome, left upper limb (principal); R20.0 Anesthesia of skin; M62.542 Muscle wasting and atrophy, not elsewhere classified, left hand; F32.A Depression, unspecified; Z87.891 Personal history of nicotine dependence
CPT/HCPCS: 64721; J0171; J2795

== ENCOUNTER → 2023-08-29 06:26 | Outpatient (BNV) | payer MEDICARE, BC, SELFPAY | PROVIDERS: PCP Internal Medicine; Visit Provider Orthopaedic Surgery | DX: G56.02 Carpal tunnel syndrome, left upper limb (principal) | CPT/HCPCS: 64721 ==

== ENCOUNTER 2023-09-13 09:16 | Outpatient (AMB) | payer MEDICARE, BC, SELFPAY ==
[2023-09-13 09:18] VITALS: BMI 25.0
--- NOTE | 2023-09-13 09:18 | MHC.OFFVIS ---
Vital Signs 09/13/23 09:18 Height 6 ft Weight 184 lb BMI 25.0 Handedness Left Intake Visit Reasons: PO LT CTR 08/29/23 AR Intake Note: Aneudy is a 72 year old left hand dominate male who presents today for his PO visit for his left CTR 08/29/[address] Domingo. States CTS have improved and is doing well. Sutures removed and steri strips applied. Allergies Unable to Assess Allergy (Verified 09/13/23 09:25) HPI HPI PO LT CTR 08/29/23 AR: Details: Aneudy is a 72 year old left hand dominant man who return S/P left carpal tunnel release, DOS: 08/29/23. He says he is doing well and his sensation is improved and now normal. He is happy with the results of his surgery. He has good relief of his nighttime symptoms. 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 He reports difficulty with using stairs. 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 Sutures removed and Steri-Strips applied He can make a fist and extend all his digits Sensation is improved and now more normal to the tips of all digits Cap refill is brisk Nerve Conduction Study: Severe left carpal tunnel syndrome, with mild chronic distal neuropathic changes in the median nerve. Dr. Kaur 03/15/23 Psych Appearance: grossly normal Affect: normal affect Attitude: cooperative Assessment & Plan Assessment & Plan (1) Carpal tunnel syndrome of left wrist: Code(s): G56.02 - Carpal tunnel syndrome, left upper limb Category: Medical Plan Assessment & Plan: 1. Left carpal tunnel syndrome, S/P release DOS: 08/29/23 Pre-operatively with dense numbness & early thenar atrophy Now with more normal sensation to the tips of all digits & good relief of his nighttime symptoms The patient appears to be doing well post-operatively I educated him about the post-operative course I discussed activity modifications, he is to lift nothing heavier than a cellphone for the next two weeks He will perform gentle ROM exercises at home He should avoid any underwater activities for the next 5 days He should gently massage about the incision site to reduce the risk of hypersensitivity He can follow up prn Scribed for Keshia Domingo MD by alejandro Sosa scribe, on 09/13/23 at 9:35 AM, EST. Scribe Plan - Not visible on output: Scribed for Keshia Domingo MD by alejandro Sosa scribe, on [ ] at [ ], EST. Coding Level of Care Code Global (40628) Diagnoses Carpal tunnel syndrome of left wrist G56.02
== END 2023-09-13 10:34 | disposition home or self-care (01) ==
PROVIDERS: PCP Internal Medicine; Visit Provider Orthopaedic Surgery
DX: G56.02 Carpal tunnel syndrome, left upper limb (principal)
CPT/HCPCS: 99024

== ENCOUNTER → 2023-09-13 09:16 | Outpatient (BNVA) | payer MEDICARE, BC, SELFPAY | PROVIDERS: PCP Internal Medicine; Visit Provider Orthopaedic Surgery | DX: Z09 Encounter for follow-up examination after completed treatment for conditions other than malignant neoplasm (principal); Z86.69 Personal history of other diseases of the nervous system and sense organs | CPT/HCPCS: 99212 ==

== ENCOUNTER 2024-06-05 09:51 | Outpatient (RCR) | payer MEDICARE, BC, SELFPAY | END 2024-06-05 10:53 | disposition home or self-care (01) | LOC: HO.PT 09:51 | PROVIDERS: PCP Internal Medicine; Visit Provider Internal Medicine | DX: M79.652 Pain in left thigh (principal) | CPT/HCPCS: 97110; 97112; 97161; 97162; 97530 ==

== ENCOUNTER 2024-09-11 14:04 | Outpatient (AMB) | payer MEDICARE, BC, SELFPAY ==
--- NOTE | 2024-09-11 14:37 | A.OFFPC_ITS ---
Vital Signs 09/11/24 14:38 Height 6 ft Weight 176 lb BMI 23.9 BP 124/76 Respiration 16 Pulse 55 Pulse Source Pulse Oximeter Temp 97.6 F Temp Source Temporal Artery Scan Pulse Oximetry (%) 98 Oxygen Delivery Method Room Air Intake Visit Reasons: establish care Mail Carriers Supervisor Required: No Accompanied by: Self / Same As Patient Allergies No Known Drug Allergies Allergy (Unknown, Verified 09/11/24 14:39) Unknown Tobacco use date assessed: 09/11/24 Fall risk assessment: No Falls in past year Last assessed Fall Risk: 09/11/24 Dental Screening Dental Screen Date: 09/11/24 Did you have a dental visit in the last 12 months?: No Did you have a dental problem in the last 6 months where you did not have access to dental care?: No Was dental information given to patient?: Patient has dentist (patient has dentures) [facility] Medical History (Updated 09/11/24 @ 15:14 by Brennan Sylvester MD) Movement disorder Depression Surgical History Previous back surgery History of tonsillectomy Family History (Updated 09/11/24 @ 14:48 by CARLOS Ponce) Mother No problems noted. Father No problems noted. 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 1. Little interest or pleasure in doing things: not at all 2. Feeling down, depressed, or hopeless: not at all 3. Trouble falling or staying asleep, or sleeping too much: not at all 4. Feeling tired or having little energy: not at all 5. Poor appetite or overeating: not at all 6. Feeling bad about yourself - or that you are a failure or have let yourself or your family down: not at all 7. Trouble concentrating on things, such as reading the newspaper or watching television: not at all 8. Moving or speaking so slowly that other people could have noticed. Or the opposite - being so fidgety or restless that you have been moving around a lot more than usual: not at all 9. Thoughts that you would be better off or of hurting yourself in some way: not at all Total score: 0 Source: Developed by Drs. Paulino Sommers, Cristal Dallas, Osorio Velazquez and colleagues, with an educational elida from [employer]. Thrive Questionnaire Date Thrive assessed: 09/11/24 I am a: Patient What is your living situation today?: I have a steady place to live Within the past 12 months, did the food you bought not last and you didn't have the money to get more?: Never true Within the past 12 months, did you worry whether your food would run out before you got money to buy more?: Never true Do you have trouble paying for medicines?: No Do you have trouble getting transportation to medical appointments?: No Do you have trouble paying your heating and electricity bill?: No Do you have trouble taking care of your child, family member or friend?: No Do you have trouble with day-to-day activities such as bathing, preparing meals, shopping, managing finances, etc.?: No Are you currently unemployed and looking for a job?: No Are you interested in more education?: No Please select the resources that you would like help with: None THRIVE Score: 0 AUDIT C Alcohol Use Questionnaire (AUDIT-C) 1. How often do you have a drink containing alcohol?: Never 3. How often do you have six or more drinks on one occasion?: Never Total Score: 0 LUIS-7 AMB Questionnaire LUIS-7 Date LUIS - 7 assessed: 09/11/24 Feeling nervous, anxious, or on edge: 0 = Not at all Not being able to stop or control worryin = Not at all Worrying too much about different things: 0 = Not at all Trouble relaxin = Not at all Being so restless that it is hard to sit still: 0 = Not at all Becoming easily annoyed or irritable: 0 = Not at all Feeling afraid as if something awful might happen: 0 = Not at all Total LIUS-7 score (0-4 normal; 5-9 mild; 10-14 moderate; 15-21 severe): 0 Source: Developed by Drs. Paulino Sommers, Cristal Dallas, Osorio Velazquez and colleagues, with an educational elida from [employer]. Physical exam (Primary Care) Vital Signs: Last Vital Signs Temp 97.6 F 09/11/24 14:38 Pulse 55 09/11/24 14:38 Resp 16 09/11/24 14:38 BP 124/76 09/11/24 14:38 Pulse Ox 98 09/11/24 14:38 Oxygen Delivery Method Room Air 09/11/24 14:38 BMI result Body Mass Index 23.9 Tobacco/Smoking Status: Tobacco use Status Tobacco use date assessed 09/11/24 09/11/24 14:49 Patient Tobacco Use Status Former Tobacco user 09/11/24 14:49 PHQ-9: PHQ-9 Score PHQ-9: Total score 0 09/11/24 14:49 Thrive Assessment: Date of Thrive Assessment Date Thrive assessed 09/11/24 09/11/24 14:49 Coding Level of Care Code New Pt Level 4 (82294) Complex EM visit Add On G2211 Diagnoses Movement disorder G25.9 Assessment & Plan Assessment & Plan (1) Movement disorder: Code(s): G25.9 - Extrapyramidal and movement disorder, unspecified Category: Medical Plan: Has neurology appt. Plan History of Present Illness The patient is a 73-year-old male presenting with concerns regarding his ability to maintain balance, potentially indicating a balance dysfunction. He describes a gradual progression of symptoms over the past two to three years, initially presenting as a limp, and now requiring stabilization before movement, particularly when making turns. He has not received a neurological diagnosis but acknowledges the condition's progressive nature. Concern is prompted by a family history of Parkinson's and ALS, as two siblings are affected. The patient consulted a neurologist last year and underwent EMG testing but did not initiate further therapy. He acknowledges the potential hereditary implications given his family history. The patient is currently on bupropion for depression, with no reported changes in his psychiatric state. He recently transitioned to a new primary care physician after his long-term provider retired unexpectedly. 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 - Substance Use: Has not had a drink in 35 years; quit smoking during COVID four or five years ago. - Functional Status: Patient does not feel comfortable driving at night; relies on pushing a grocery cart for stability when shopping. - Family Status: , lives with his . - Lifestyle: Exercises caution regarding movement to prevent falls, as encouraged by his . Review of Systems - Neurological: Reports difficulty maintaining balance, especially when turning; Denies seeing a neurologist recently; Denies being on medication for movement disorders. - Musculoskeletal: Reports walking with a limp two to three years ago. - Psychiatric: Denies any changes in psychiatric condition; on bupropion for depression. - General: Denies current health concerns beyond balance issues. Physical Exam General: Cooperative and healthy appearing Nutritional Appearance: Well nourished Orientation/consciousness: Patient oriented x3 Limitations: No limitations Head: Normal to inspection General: Appearance normal, both eyes and all related structures Neck: Normal visual inspection Chest: Normal palpation of entire chest wall Respiratory: N ormal respiratory effort Neurology: Patient reports difficulty maintaining balance and requires time to stabilize before moving. No current medication for movement issues. Referral to neurologist Dr. Steven is needed for further evaluation. Results - Diagnostic Tests: Previous electromyography (EMG) test performed. Plan 1. Balance Dysfunction - Refer patient back to neurologist Dr. Steven for assessment and potential further testing. 2. Depression - Continue current treatment with bupropion as per current prescription schedule. 3. Family History Of Parkinson's Disease - Discuss potential hereditary risks during upcoming neurology consultation. 4. Family History Of Als - Recommend genetic evaluation as part of follow-up with neurologist to address family history concerns. Discussion Notes Today, we discussed the patient's primary concern of balance dysfunction and the importance of further evaluation by a neurologist, given the progressive nature and family history of neurological diseases. I encouraged the patient to follow up with Dr. Steven for a comprehensive evaluation, including potential genetic testing due to family history of Parkinson's and ALS. We reviewed the stability of his depression symptoms with no dosage change recommended at this time. Additionally, continuity of care was discussed after his previous primary care physician's longterm, ensuring all relevant medical records are transferred appropriately. Follow-up with a neurologist was emphasized as crucial, and a referral will be made. The patient was advised to be aware of siblings' conditions and communicate any significant hereditary patterns to his healthcare providers. Patient Instructions - Schedule a consultation with Dr. Steven, the neurologist, for an evaluation of balance issues. - Continue bupropion as prescribed for depression. - Be cautious with movement, especially at night, and avoid tasks that could compromise balance. - Be aware of family history concerns and discuss them during the neurology appointment. - Ensure all medical records from previous primary care physician are transferred to current healthcare providers. Orders: Orders Basic Metabolic Panel 09/11/24 G2.9 - Extrapyramidal and movement disorder, unspecified Thyroid Stimulating Hormone 09/11/24 G2. - Extrapyramidal and movement disorder, unspecified Complete Blood Count no Diff 09/11/24. - Extrapyramidal and movement disorder, unspecified Liver Panel 09/11/24. - Extrapyramidal and movement disorder, unspecified Lipid Panel 09/11/24. - Extrapyramidal and movement disorder, unspecified UA and rflx microscopic 09/11/24. - Extrapyramidal and movement disorder, unspecified Referrals Neurology Referral .9 - Extrapyramidal and movement disorder, unspecified
[2024-09-11 14:38] VITALS: BP 124/76; PULSE 55; RESP 16; TEMP 36.4; O2SAT 98; BMI 23.9
--- OUTSIDE RECORDS SUMMARY | 2024-09-11 15:22 | XMS_ITS | Clinical Summary ---
Author Organization [facility] Address [address] [place] [address] Care Team Providers Care Historiography Professor Name Role Phone Lawrence Santoyo MD Primary Care Provider [phone] Surgical History Surgery Date Site/Laterality Comments OTHER SURGICAL HISTORY PROCEDURE: IN [place] ANT INTERBODY DECOMPRESS CERVICAL BELW C2; COMMENT: Cervical Disc Surgery Dr.. Feliz OTHER SURGICAL HISTORY PROCEDURE: IN [place] ANT INTERBODY DECOMPRESS CERVICAL BELW C2; COMMENT: Cervical Discectomy, Fusion C4-C5 10/30/19 Dr. Cheney OTHER SURGICAL HISTORY PROCEDURE: IN [place] FACETECTOMY & FORAMOTOMY 1 VRT SGM LUMBAR; COMMENT: Lumbar Laminectomy 03/24/20 Dr. Cheney Medical History Medical History Date Comments Other cervical disc displace ment, unspecified cervical region DX:Other cervical disc dis placement, unspecified cervical region Pain in right shoulder DX:Pain i n right shoulder Spinal stenosis of lumbar region DX:Spinal stenosis of lumbar region Bipolar disorder ([facility] V2 4, [facility] V28) DX:Bipolar disorder ([facility]) COPD (chronic obstructive pu lmonary disease) ([facility] V24, [facility] V28) DX:COPD (chronic o bstructive pulmonary disease) ([facility]) Smoking DX:Smoking Venous insufficiency DX:Venous i nsufficiency Tear of rotator cuff DX:Tear of rotator cuff Social History Tobacco Use Types Packs/Day Years Used Date Smoking Tobacco: Former Cigarettes Q uit: 05/09/2018 Smokeless Tobacco: Never Alcohol Use Standard Drinks/Week Comments No 0 (1 standard drink = 0.6 oz pur e alcohol) Sex and Gender Information Value Date Recorded Sex Assigned at Not on file Legal Sex Male 10:05 PM EST Gender Identity Not on file Sexual Orientation Not on file Obstetrics History Plan of Treatment Health Maintenance Due Date Last Done Comments DTaP,Tdap,and Td Vaccines (1 - Tdap) 11/17/1971 Pneumococcal Vaccine: 50+ Years (1 of 1 - PCV) 2002 Zoster Vaccines (1 of 2) 2002 Abdominal Aortic Aneurysm (AAA) Screen 04/10/2022 Cholesterol Screening (Lipid Panel) 04/10/2022 Colorectal Cancer Screening: Colonoscopy 04/10/2022 Depression Screening 04/10/2022 Falls Risk Assessment 04/10/2022 Hepatitis C Screening 04/10/2022 Social Influencers of Health Screening 04/10/2022 Medicare Annual Wellness Visit 02/24/2023 02/24/2022 COVID-19 Vaccine ( season) 2024 Influenza Vaccine (Season Ended) 2025 02/24/2022, 03/03/2021, 04/10/2020, Additional history exists RSV Immunization Adult Patients (1 - 1-dose 75+ series) 11/17/2027 HIB Vaccines Aged Out No longer eligi ble based on patient's age to complete this topic HPV Vaccines Aged Out No longer eligi ble based on patient's age to complete this topic Hepatitis A Vaccines Aged Out No long er eligible based on patient's age to complete this topic Hepatitis B Vaccines Aged Out No long er eligible based on patient's age to complete this topic IPV Vaccines Aged Out No longer eligi ble based on patient's age to complete this topic MMR Vaccines Aged Out No longer eligi ble based on patient's age to complete this topic Meningococcal ACWY Vaccine Aged Out N o longer eligible based on patient's age to complete this topic Meningococcal B Vaccine Aged Out No l onger eligible based on patient's age to complete this topic RSV Immunization Patients Under 20 months Aged Out No longer eligible based on patient's age to complete this topic Varicella Vaccines Aged Out No longer eligible based on patient's age to complete this topic Care Teams Historiography Professor Relationship Specialty Start Date End Date Lawrence Santoyo MD [address] [place] [id number] PCP - General Internal Medicine 07/09/19
--- OUTSIDE RECORDS SUMMARY | 2024-09-11 15:22 | XMS_ITS ---
Author Organization [facility] Address [address] [place] [address] Care Team Providers Care Cap Sewer Name Role Phone Megan Fields Unavailable [phone] Allergies No Known Allergies REASON FOR VISIT Painful nail(s) aggrevated by shoes causing difficulty standing/walking, Gait issues Medications Medication SIG (Take, Route, Frequency, Duration) Notes Start Date End Date Status buPROPion HCl Active QUEtiapine Fumarate 25 MG 1 tablet at bedtime Orally Once a day Not-Taking PARoxetine HCl Not-T aking Baclofen Not-Taking Physical Therapy . . . 2-3x/week for 3- 4 weeks 02/07/2024 Active Social History Tobacco Use: Social History Observation Description Date Details (start date - stop date) Former Smoker NA - NA Tobacco Use/Smoking Question Answer Notes Are you a: former smoker Additional Findings: Tobacco Non-User Current no n-smoker Alcohol Screen Question Answer Notes Did you have a drink containing alcohol in the p ast year? No Points 0 Interpretation Negative Tobacco use other than smoking: Question Answer Notes Are you an other tobacco user? No Problems Problem Type SNOMED Code ICD Code Onset Dates Problem Status W/U Status Risk Notes Problem [id number] Unsteady gait (R26.81) Active confirmed Vital Signs Height 6ft in 02/07/2024 Weight 177 lbs 02/07/2024 BMI 24 kg/m2 02/07/2024 Blood pressure systolic 120 mm Hg 02/07/20 24 Blood pressure diastolic 80 mm Hg 024 Encounters Encounter Location Date Provider Diagnosis [facility] [address] [place] [address] 02/07/2024 Megan Fields Tinea unguium B35.1 ; Unsteady gait R26.81 ; Neuropathy G62.9 ; Pain in toe of left foot M79.675 and Pain in toe of right foot M79.674 Assessments Encounter Date Diagnosis (ICD Code) Assessment Notes Treatment Notes Treatment Clinical Notes Section Notes 02/07/2024 Tinea unguium (ICD-10 - B35.1) 02/07/2024 Unsteady gait (ICD-10 - R26.81) 02/07/2024 Neuropathy (ICD-10 - G62.9) 02/07/2024 Pain in toe of left foot (ICD-10 - M79.675) 02/07/2024 Pain in toe of right foot (ICD-10 - M79.674) Plan Of Treatment Medication Medication Name Sig Start Date Stop Date Notes Physical Therapy . . . 2-3x/week for 3-4 weeks 02/07/2024 Next Appt Details Follow Up: 3 Months, Reason: Provider Name:Megan san, 11/21/2024 10:00:00 AM, [address] [place] [address], [phone], Procedure Notes * Category Sub-Category Detail Notes Debride Nail 6-10 Nail debridement Nail debridem ent performed extensively to reduce/remove overall nail length and girth, subungual debris, and necrotic tissue, by manual and electrical means with use of a nail nipper and/or dremel, to more viable healthy nail plate or bed tissue 6-10. Silver nitrate used for any petechial bleeding as necessary. Patient chooses, no pharmaceutical tx ([id number]) Progress Notes * Aneudy CRUMP LDOB: [birth year] (73 yo M)Acc No.[id number]:02/07/2024 Progress Note Patient:?Aneudy Crump Provider:?Megan Fields DPM :1950???Age:73 Y???Sex:Male José Luis e:02/07/2024 Address:[address] [place], [place] [id number] Pcp:Lawrence Santoyo Subjective: * Chief Complaints: * ???Painful nail(s) aggrevate d by shoes causing difficulty standing/walkingGait issues * HPI: ???Painful Nails:?Pt States Last PCP Visit:?Date:?08/08/2023 ???Foot Pain:?Nature:?unsteady gait.?Duration:?1 year or more.?Course:?worse.? * ROS:?General/Constitutional:?Nausea?denies.?Vomiting?denies.?Hunger Thirst?denies.?Loss appetite?denies.?Chills?denies.?Fatigue?denies.?Fever?denies.?Night Sweats?denies.?Unexplained weight loss?denies.?Unexplained weight gain?denies.?HEENTM:?Dentures?admits.?Dizziness?denies.?Glasses/contacts?admits.?Retinopathy?de nies.?Blurred/double vision?denies.?TMJ?denies.?Discharge/drainage?denies.?Implants?denies.?Sore throat?denies.?Dental implants?denies.?Hard of hearing ?denies.?Difficulty chewing/swallowing/speaking?denies.?Nose bleeds?denies.?Sore mouth?denies.?Respiratory:?On Oxygen?denies.?Pneumonia/pleurisy?denies.?Bronchitis?denies.?Emphysema?denies.?C oughing?denies.?Cough blood?denies.?Shortness of breath?denies.?Wheezing?denies.?Cardiovascular:?Pacemaker?denies.?MVP?denies.?WPW?denies.?CHF?denies.?Heart attack?denies.?Septal defect?denies.?Rapid beat?denies.?Chest pain ?denies.?Atrial Fib.?denies.?Murmur/Palpitations?denies.?Gastrointestinal:?Hemorrhoids?denies.?Stomach/Abdominal pain?denies.?Dark blood stool?denies.?Irritable bowel ?denies.?Constipation?denies.?Diarrhea?denies.?Hematology:?Swelling?denies.?Clots?denies.?Varicose Veins?denies.?Bruising?denies.?Bleeding problem?denies.?Genitourinary:?Blood urine?denies.?Frequent/Painfu/urination/bladder control?denies.?Kidney stones?denies.?Infection (UTI)?denies.?Nephropathy?denies.?sex trans dis (STD)?denies.?Prostate?denies.?Musculoskeletal:?Hammertoes?denies.?Bunions?denies.?Back Pain?denies.?Muscle Cramps/ Resting?denies.?Muscle cramps / walking?denies.?Generalized aches and pains?denies.?Weakness?admits.?Integ.:?Peoples?denies.?Scars?denies.?Corns/calluses?denies.?Ingrown nails?admits.?Painful nails?denies.?Open Sores?denies.?Rashes?denies.?Neurologic:?Difficulty sleeping?denies.?Brain disorder?denies.?Numbness?admits.?Balance trouble?denies.?Confusion?denies.?Fainting/blackouts?denies.?Tingling?denies.?Tr emors?denies.? * Medical History:? * Surgical History:?herniated disc- spinal stenosis surgery 03/2020herniated disc 09/2020 * [place]Major Diagno [place]ic [place] [place] * Family History:?Mother: dece ased, diagnosed with Other malignant neoplasm of unspecified site.?Father: , diagnosed with Unspecified essential hypertension, Unspecified heart disease.?Siblings: diagnosed with Diabetic - NIDDM, Other malignant neoplasm of unspecified site.? * Social History:?Tobacco Use:?Tobacco Use/Smoking?Are you a:?former smoker ?Additional Findings: Tobacco Non-User?Current non-smoker ?Tobacco use other than smoking?Are you an other tobacco user??No ???Drugs/Alcohol:?Drugs?Have you used drugs other than those for medical reasons in the past 12 months??No ?Alcohol Screen?Did you have a drink containing alcohol in the past year??No ?Points?0 ?Interpretation?Negative ???Miscellaneous:?Caffeine: yes, frequency: , 2-3 cups per day. ?Children: yes, 6. ?no Exercise. ?Marital status: . 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 * Medications:?TakingbuPROPion HCl Taking buPROPion HCl Not-Taking/PRNQUEtiapine Fumarate 25 MG Tablet 1 tablet at bedtime Orally Once a dayPARoxetine HCl Baclofen Medication List reviewed and reconciled with the patientNot-Taking/PRN QUEtiapine Fumarate 25 MG Tablet 1 tablet at bedtime Orally Once a dayNot-Taking/PRN PARoxetine HCl Not-Taking/PRN Baclofen Medication List reviewed and reconciled with the patient * Allergies:?N.K.D.A.yes[Aller gies Verified] Objective: * Vitals:?Ht: 6ft, Wt:177, BMI :24, Shoe size: 11, BP:120/80 mm Hg, Ht-cm: 182.88 cm, Wt-k.29 kg. * Examination: ???Nails: ?NAILS are:?Elongated, overgrown, dystrophic, lytic, greater than 3mm thick, discolored and friable with crumbly malodorous subungual debris, with pain on palpation, 1-5 B/L.?Neurological: ?SENSORY:?Neurological exam demonstrates , reduced light touch sensation , reduced sharp/dull pin prick discrimination , reduced vibration sensation , reduced proprioception sensation , in a stocking fashion , plantar aspects , 5.07 monofilament test performed at plantar aspects of 5 varied sites per foot shows sensation , reduced , at Forefoot , B/L.?General Examination: ?GENERAL APPEARANCE:?Reveals a pleasant, alert, well nourished, well- developed, well hydrated individual, who demonstrates proper attention to hygiene/body habitus, and is in no acute distress, Pt serves as own historian for office visit today.?ORIENTED:?person, place, and time.?Orthopedic: ?MUSCLE STRENGTH:?Generalized decrease in strength.?GAIT ABNORMALITY:?antalgic , unstable/unsteady relating occasional difficulty with balance , cane-assisted.?DIGITAL DEFORMITIES:?Digital contracture, PIPJ, 2-5 B/L, incompl-reducible with WB, or to push-up test, no over, nor underlapping.? Assessment: * Assessment: 1.?Tinea unguium - B35.1?2.? Unsteady gait - R26.81 (Primary)?3.?Neuropathy - G62.9, Chronic problem, Stable (1=3,2=4)?4.?Pain in toe of left foot - M79.675?5.?Pain in toe of right foot - M79.674? Plan: * Treatment: * Procedures:?Debride Nail 6-10:?Nail debridement?Nail debridement performed extensively to reduce/remove overall nail length and girth, subungual debris, and necrotic tissue, by manual and electrical means with use of a nail nipper and/or dremel, to more viable healthy nail plate or bed tissue 6-10. Silver nitrate used for any petechial bleeding as necessary. Patient chooses, no pharmaceutical tx ([id number]).? * Procedure Codes:?86667 DEBRI DE NAIL, 6 OR MORE * Preventive Medicine:? ??Counseling:?Discussion:?-13: Office or other outpatient visit for the evaluation and management of an established patient, which required a medically appropriate history and/or examination and LOW level of DECISION MAKING for: 1 STABLE ACUTE UNCOMPLICATED PROBLEM, 2 OR MORE MINOR PROBLEMS, OR 1 STABLE CHRONIC PROBLEM, THAT POSE(S) A LOW RISK FOR MORBIDITY/MORTALITY. The visit on the day of the encounter encompassed interpreting the data and educating the patient as to the nature of their condition, treatment options available according to their individual PMH, meds, allergies, and overall health/living conditions, as well as any potential risks or complications that may occur from a failure to adhere to, and participate in, the recommended course of therapy. The discussion included a complete verbal, and/or written explanation of the examination results, any x-rays taken, the proposed diagnosis, and outline of the treatment plan. A schedule for future care needs was also explained. The patient verbalized an understanding of the instructions at this time and agreed to be an active participant in their treatment. If the patient should think of any questions or concerns after the visit, I have encouraged the patient to call the office.?Physical Therapy:?Discussed the potential short and ad terminal makeup operator benefits of physical therapy including pain relief, improved function for activity of daily life, return to exercise, increased quality of life. We discussed the usual/customary PT treatment schedule of 2-3 times per week for 4 weeks to as much as 12 weeks depending on insurance approval/coverage. We discussed various PT treatment modalities including, but not limited to, gate training, muscular stabilization, stretching, deep tissue therapeutic massage, ultrasound, TENS, iontophoresis, fluidotherapy, laser therapy, hydrotherapy, contrast ice/heat bath, and passive as well as active ROM exercises. Questions re: PT including visit amounts, rates of success, and goals were answered to the patient's satisfaction. The patient verbally confirmed the medical necessity and use of PT therapy treatment for their MSK condition, Recommend gait training and stability.? * Follow Up:?3 Months * Images: * Sign off status: Completed true * Provider:?Megan Fields DPEdmar Date:?05/2023 Generated for Dhaval garza/Mahnaz/Kiki on:?09/11/2024 03:22 PM EDT History and Physical Notes * HPI (History of Present Illness) Category Sub-Category Detail Notes Category Not es Painful Nails Pt States Last PCP Visit: Date:: 08/08/2023 Foot Pain Nature: unsteady gait Duration: 1 year or more Course: worse Examination Category Sub-Category Detail Notes Category Not es Neurological SENSORY: Neurological exa m demonstrates , reduced light touch sensation , reduced sharp/dull pin prick discrimination , reduced vibration sensation , reduced proprioception sensation , in a stocking fashion , plantar aspects , 5.07 monofilament test performed at plantar aspects of 5 varied sites per foot shows sensation , reduced , at Forefoot , B/L Orthopedic GAIT ABNORMALITY: antalgic , uns table/unsteady relating occasional difficulty with balance , cane-assisted DIGITAL DEFORMITIES: Digital contracture , PIPJ, 2-5 B/L, incompl-reducible with WB, or to push-up test, no over, nor underlapping MUSCLE STRENGTH: Generalized decrease in strength General Examination GENERAL APPEARANCE: Reveals a pleasant, alert, well nourished, well-developed, well hydrated individual, who demonstrates proper attention to hygiene/body habitus, and is in no acute distress, Pt serves as own historian for office visit today ORIENTED: person, place, and t delfin Nails NAILS are: Elongated, overg rown, dystrophic, lytic, greater than 3mm thick, discolored and friable with crumbly malodorous subungual debris, with pain on palpation, 1-5 B/L
--- OUTSIDE RECORDS SUMMARY | 2024-09-11 15:22 | XMS_ITS ---
Author Organization [facility] Address [address] [place] [address] Care Team Providers Care Marble Installer Supervisor Name Role Phone Megan Fields Unavailable [phone] Allergies No Known Allergies REASON FOR VISIT Painful nail(s) aggrevated by shoes causing difficulty standing/walking Medications Medication SIG (Take, Route, Frequency, Duration) Notes Start Date End Date Status PARoxetine HCl Not-T aking Baclofen Not-Taking Physical Therapy . . . 2-3x/week for 3- 4 weeks 02/07/2024 Active QUEtiapine Fumarate 25 MG 1 tablet at bedtime Orally Once a day Active buPROPion HCl Active Social History Tobacco Use: Social History Observation Description Date Details (start date - stop date) Former Smoker NA - NA Tobacco Use/Smoking Question Answer Notes Are you a: former smoker Additional Findings: Tobacco Non-User Current no n-smoker Tobacco use other than smoking: Question Answer Notes Are you an other tobacco user? No Vital Signs Height 6ft in 05/15/2024 Weight 175 lbs 05/15/2024 BMI 23.73 kg/m2 05/15/2024 Blood pressure systolic 120 mm Hg 05/15/19 25 Blood pressure diastolic 80 mm Hg 025 Encounters Encounter Location Date Provider Diagnosis [facility] [address] [place] [address] 05/15/2024 Megan Diamond Tinea unguium B35.1 ; Neuropathy G62.9 ; Pain in toe of left foot M79.675 and Pain in toe of right foot M79.674 Assessments Encounter Date Diagnosis (ICD Code) Assessment Notes Treatment Notes Treatment Clinical Notes Section Notes 05/15/2024 Tinea unguium (ICD-10 - B35.1) 05/15/2024 Neuropathy (ICD-10 - G62.9) 05/15/2024 Pain in toe of left foot (ICD-10 - M79.675) 05/15/2024 Pain in toe of right foot (ICD-10 - M79.674) Plan Of Treatment Next Appt Details Follow Up: 3 Months, Reason: Provider Name:Megan san, 11/21/2024 10:00:00 AM, [address] [place] [address], [phone], Procedure Notes * Category Sub-Category Detail Notes Debride Nail 6-10 Nail debridement Due to the cl inical pathology outlined in the exam findings, performance of this nail treatment is medically necessary as its management by an unskilled/untrained nonprofessional would put this patients foot and overall health at risk. Therefore, debridement to affected nail(s), as described in exam (TA, T1, T2, T3, T4, T5, T6, T7, T8, T9, ), was performed exclusively by the physician of record to reduce/remove overall nail length, girth, thickness, subungual debris, and necrotic tissue, by manual and/or electrical means through the use of a nail nipper and/or dremel-type grinder set up operator thread tool, to a more viable healthy nail plate or bed tissue 6-10 nails in total. Silver nitrate was used for any petechial bleeding as necessary. Definitive antifungal treatment options, both pharmaceutical and surgical, have been reviewed and discussed with the patient. The patient solely prefers the use of intermittent/as needed professional debridement services for their nail condition and understands the need for additional periodic treatments to maintain effectiveness in symptomatic relief - 87607 Progress Notes * Aenudy CRUMP LDOB: [birth year] (73 yo M)Acc No.[id number]:05/15/2024 Progress Note Patient:?Aneudy CRUMP Provider:?Megan Fields DPM :1950???Age:73 Y???Sex:Male José Luis e:05/15/2024 Address: [place], [place] Pcp:Lawrence Santoyo Subjective: * Chief Complaints: * ???Painful nail(s) aggrevate d by shoes causing difficulty standing/walking * HPI: ???Painful Nails:?Pt States Last PCP Visit:?Date:?08/08/2023 * ROS:?General/Constitutional:?Nausea?denies, denies.?Vomiting?denies, denies.?Hunger Thirst?denies, denies.?Loss appetite?denies, denies.?Chills?denies, denies.?Fatigue?denies, denies.?Fever?denies, denies.?Night Sweats denies, denies.?Unexplained weight loss?denies, denies.?Unexplained weight gain?denies, denies.?HEENTM:?Dentures?admits, admits.?Dizziness?denies, denies.?Glasses/contacts?admits, admits.?Retinopathy?denies, denies.?Blurred/double vision?denies, denies.?TMJ?denies, denies.?Discharge/drainage?denies, denies.?Implants?denies, denies.?Sore throat?denies, denies.?Dental implants?denies, denies.?Hard of hearing ?denies, denies.?Difficulty chewing/swallowing/speaking?denies, denies.?Nose bleeds?denies, denies.?Sore mouth?denies, denies.?Respiratory:?On Oxygen?denies, denies.?Pneumonia/pleurisy?denies, denies.?Bronchitis?denies, denies.?Emphysema?denies, denies.?Coughing?denies, denies.?Cough blood?denies, denies.?Shortness of breath?denies, denies.?Wheezing?denies, denies.?Cardiovascular:?Pacemaker?denies, denies.?MVP?denies, denies.?WPW?denies, denies.?CHF?denies, denies.?Heart attack?denies, denies.?Septal defect?denies, denies.?Rapid beat?denies, denies.?Chest pain ?denies, denies.?Atrial Fib.?denies, denies.?Murmur/Palpitations?denies, denies.?Gastrointestinal:?Hemorrhoids?denies, denies.?Stomach/Abdominal pain?denies, denies.?Dark blood stool?denies, denies.?Irritable bowel ?denies, denies.?Constipation?denies, denies.?Diarrhea?denies, denies.?Hematology:?Swelling?denies, denies.?Clots?denies, denies.?Varicose Veins?denies, denies.?Bruising?denies, denies.?Bleeding problem?denies, denies.?Genitourinary:?Blood urine?denies, denies.?Frequent/Painfu/urination/bladder control?denies, denies.?Kidney stones?denies, denies.?Infection (UTI)?denies, denies.?Nephropathy?denies, denies.?sex trans dis (STD)?denies, denies.?Prostate?denies, denies.?Musculoskeletal:?Hammertoes?denies, denies.?Bunions?denies, denies.?Back Pain?denies, denies.?Muscle Cramps/ Resting?denies, denies.?Muscle cramps / walking?denies, denies.?Generalized aches and pains?denies, denies.?Weakness?admits, admits.?Integ.:?Peoples?denies, denies.?Scars?denies, denies.?Corns/calluses?denies, denies.?Ingrown nails?admits, admits.?Painful nails?denies, denies.?Open Sores?denies, denies.?Rashes?denies, denies.?Neurologic:?Difficulty sleeping?denies, denies.?Brain disorder?denies, denies.?Numbness?admits, admits.?Balance trouble?denies, denies.?Confusion?denies, denies.?Fainting/blackouts?denies, denies.?Tingling?denies, denies.?Tremors?denies, denies.? * Medical History:? * Surgical History:?herniated disc- spinal stenosis surgery 03/2020herniated disc 09/2020 * Hospitalization/Major Diagno stic Procedure:[place] [place] * Family History:?Mother: dece ased, diagnosed with Other malignant neoplasm of unspecified site.?Father: , diagnosed with Unspecified essential hypertension, Unspecified heart disease.?Siblings: diagnosed with Other malignant neoplasm of unspecified site, Diabetic - NIDDM.? * Social History:?Tobacco Use:?Tobacco Use/Smoking?Are you a:?former smoker ?Additional Findings: Tobacco Non-User?Current non-smoker ?Tobacco use other than smoking?Are you an other tobacco user??No * Medications:?TakingbuPROPion HCl Physical Therapy . . . . 2-3x/week QUEtiapine Fumarate 25 MG Tablet 1 tablet at bedtime Orally Once a day Taking buPROPion HCl Taking Physical Therapy . . . . 2-3x/week Taking QUEtiapine Fumarate 25 MG Tablet 1 tablet at bedtime Orally Once a day Not-Taking/PRNPARoxetine HCl Baclofen Medication List reviewed and reconciled with the patientNot-Taking/PRN PARoxetine HCl Not-Taking/PRN Baclofen Medication List reviewed and reconciled with the patient * Allergies:?N.K.D.A.yes[Aller gies Verified] Objective: * Vitals:?Ht: 6ft, Wt:175, BMI :23.73, Shoe size: 11, BP:120/80mm Hg, Ht-cm: 182.88 cm, Wt-k.38 kg. * Examination: ???Nails: ?NAILS are:?Elongated, overgrown, dystrophic, lytic, greater than 3mm thick, discolored and friable with crumbly malodorous subungual debris, with pain on palpation, TA, T1, T2, T3, T4, T5, T6, T7, T8, T9.?Neurological: ?SENSORY:?Neurological exam demonstrates , reduced light touch [...] place, and time.?Orthopedic: ?MUSCLE STRENGTH:?Generalized decrease in strength.?DIGITAL DEFORMITIES:?Digital contracture, PIPJ, 2-5 B/L, incompl-reducible with WB, or to push-up test, no over, nor underlapping.? Assessment: * Assessment: 1.?Tinea unguium - B35.1 (Pr imary)???2.?Neuropathy - G62.9???Specify :Chronic problem, Stable (1=3,2=4)???3.?Pain in toe of left foot - M79.675???4.?Pain in toe of right foot - M79.674??? Plan: * Treatment: * Procedures:?Debride Nail 6-10:?Nail debridement?Due to the clinical pathology outlined in the exam findings, performance of this nail treatment is medically necessary as its management by an unskilled/untrained nonprofessional would put this patients foot and overall health at risk. Therefore, debridement to affected nail(s), as described in exam (TA, T1, T2, T3, T4, T5, T6, T7, T8, T9, ), was performed exclusively by the physician of record to reduce/remove overall nail length, girth, thickness, subungual debris, and necrotic tissue, by manual and/or electrical means through the use of a nail nipper and/or dremel-type grinder set up operator thread tool, to a more viable healthy nail plate or bed tissue 6- 10 nails in total. Silver nitrate was used for any petechial bleeding as necessary. Definitive antifungal treatment options, both pharmaceutical and surgical, have been reviewed and discussed with the patient. The patient solely prefers the use of intermittent/as needed professional debridement services for their nail condition and understands the need for additional periodic treatments to maintain effectiveness in symptomatic relief - 30633.? * Procedure Codes:?46082 DEBRI DE NAIL, 6 OR MORE * Preventive Medicine:? ??Screening/Special Tests:?Fall Risk?Assessment:?Performed ?Screening:?No falls in the past year ?FALLS: Screening for Future Fall Risk?Have you had two or more falls in the past year??No ?Have you had any falls with injury in the past year??No * Follow Up:?3 Months * Images: * Sign off status: Completed true * Provider:?Megan Fields DPM Date:?11/2024 Generated for Dhaval garza/Mahnaz/Kiki on:?09/11/2024 03:22 PM EDT History and Physical Notes * HPI (History of Present Illness) Category Sub-Category Detail Notes Category Not es Painful Nails Pt States Last PCP Visit: Date:: 08/08/2023 Examination Category Sub-Category Detail Notes Category Not [...] reduced , at Forefoot , B/L Orthopedic DIGITAL DEFORMITIES: Digital con tracture, PIPJ, 2-5 B/L, incompl-reducible with WB, or [...] malodorous subungual debris, with pain on palpation, TA, T1, T2, T3, T4, T5, T6, T7, T8, T9
--- OUTSIDE RECORDS SUMMARY | 2024-09-11 15:22 | XMS_ITS | Clinical Summary ---
Author Organization [employer] [facility] Address [address] [place] [address] Care Team Providers Care Speech Lang Path Therapist Name Role Phone Unavailable Primary Care Provider Unavailabl e Social History Tobacco Use Types Packs/Day Years Used Date Smoking Tobacco: Never Assessed Sex and Gender Information Value Date Recorded Sex Assigned at Not on file Gender Identity Not on file Sexual Orientation Not on file Plan of Treatment Health Maintenance Due Date Last Done Comments Hepatitis C Screening 1950 COVID-19 Vaccine (#1) 05/19/1953 Depression Screening 1964 Preventative Health Evaluation 1970 DTap / Tdap / Td (1 - Tdap) 11/17/1971 Colon Cancer Screening (Colonoscopy) 1997 Shingrix-Zoster Vaccine (1 of 2) 2002 Fall Risk Assessment 2017 Pneumococcal Vaccine (1 of 1 - PCV) 2017 Influenza Vaccine (#1) 2024 RSV Adult > 60+ Yrs or Pregn ant (1 - 1-dose 75+ series) 11/17/2027 Hepatitis B Vaccines Aged Out No long er eligible based on patient's age to complete this topic RSV Ped < 20 months Aged Out No longe r eligible based on patient's age to complete this topic Aneudy Smiley Personal/Family Self 1950 [address] [place] [address]
--- OUTSIDE RECORDS SUMMARY | 2024-09-11 15:23 | XMS_ITS | Patient Health Record ---
Author Organization [facility] Address [address] [facility] [place] [address] Care Team Providers Care Unemployment Inspector Name Role Phone Megan Fields Unavailable [phone] Allergies No Known Allergies Reason For Referral No Information Medications Medication SIG (Take, Route, Frequency, Duration) Notes Start Date End Date Status Physical Therapy . . . 2-3x/week for 3- 4 weeks 02/07/2024 Not-Taking buPROPion HCl Active PARoxetine HCl Not-T aking QUEtiapine Fumarate 25 MG 1 tablet at bedtime Orally Once a day Active Baclofen Not-Taking Social History Tobacco Use: Social History Observation Description Date Details (start date - stop date) Never Smoker NA - NA Tobacco use other than smoking: Question Answer Notes Are you an other tobacco user? No Tobacco Control (Standard) Question Answer Notes Tobacco use: Nonsmoker Additional Findings: Tobacco non-user Current no nsmoker AUDIT-C (Standard) Question Answer Notes Did you have a drink containing alcohol in the p ast year? No Points 0 Interpretation Negative Problems Problem Type SNOMED Code ICD Code Onset Dates Problem Status W/U Status Risk Notes Problem 510457460 Neuropathy (G62.9) Active confirmed Problem 19915949 Unsteady gait (R26.81) Active confirmed Vital Signs Heart Rate 59 /min 08/14/2024 Blood pressure diastolic 68 mm Hg 08/14/2024 Height 6ft in 08/14/2024 Blood pressure systolic 110 mm Hg 08/14/2024 Weight 175 lbs 08/14/2024 BMI 23.73 kg/m2 08/14/2024 Encounters Encounter Location Date Provider Diagnosis [address] [address] 10/25/2023 Megan Perica Tinea unguium B35.1 ; Neuropathy G62.9 ; Pain in toe of left foot M79.675 and Pain in toe of right foot M79.[address] [address] 02/07/2024 Megan Perica Tinea unguium B35.1 ; Unsteady gait R26.81 ; Neuropathy G62.9 ; Pain in toe of left foot M79.675 and Pain in toe of right foot M79.[address] [address] 05/15/2024 Megan Perica Tinea unguium B35.1 ; Neuropathy G62.9 ; Pain in toe of left foot M79.675 and Pain in toe of right foot M79.[address] [address] 08/14/2024 Megan Perica Tinea unguium B35.1 ; Neuropathy G62.9 ; Pain in toe of left foot M79.675 and Pain in toe of right foot M79.674 Assessments Encounter Date Diagnosis (ICD Code) Assessment Notes Treatment Notes Treatment Clinical Notes Section Notes 10/25/2023 Tinea unguium (ICD-10 - B35.1) 02/07/2024 Tinea unguium (ICD-10 - B35.1) 02/07/2024 Unsteady gait (ICD-10 - R26.81) 05/15/2024 Tinea unguium (ICD-10 - B35.1) 05/15/2024 Neuropathy (ICD-10 - G62.9) 08/14/2024 Tinea unguium (ICD-10 - B35.1) 08/14/2024 Neuropathy (ICD-10 - G62.9) 05/15/2024 Pain in toe of left foot (ICD-10 - M79.675) 10/25/2023 Neuropathy (ICD-10 - G62.9) 02/07/2024 Neuropathy (ICD-10 - G62.9) 10/25/2023 Pain in toe of left foot (ICD-10 - M79.675) 02/07/2024 Pain in toe of left foot (ICD-10 - M79.675) 05/15/2024 Pain in toe of right foot (ICD-10 - M79.674) 08/14/2024 Pain in toe of left foot (ICD-10 - M79.675) 08/14/2024 Pain in toe of right foot (ICD-10 - M79.674) 02/07/2024 Pain in toe of right foot (ICD-10 - M79.674) 10/25/2023 Pain in toe of right foot (ICD-10 - M79.674) Plan Of Treatment Next Appt Details Provider Name:Megan san, 11/21/2024 10:00:00 AM, [address] [place] [address], [phone], Insurance Providers Payer Name Payer Address Payer Phone Subscriber Number Group Number Insured Name Patient Relationship to Insured Coverage Start Date Coverage End Date Medicare National [employer] [address] [place] [address] [id number] Aneudy Smiley Self - patient is the insured [facility] [address] [place] [address] [id number] Aneudy Smiley Self - patient is the insured Medical (General) History Medical History History ICD Code Joint implants/screws severe spinal myelopathy/stenosis Surgical History Surgery Date(Month/Year) herniated disc- spinal stenosis surgery 03/2020 herniated disc 09/2020 Hospitalization History Reason Date(Month/Year) [facility] [place] 07/2022
--- OUTSIDE RECORDS SUMMARY | 2024-09-11 15:23 | XMS_ITS ---
Author Organization [facility] Address [address] [place] [address] Care Team Providers Care Journal Clerk Name Role Phone Diamond Megan Unavailable [phone] Allergies No Known Allergies REASON FOR VISIT [...] ast year? No Points 0 Interpretation Negative Vital Signs Height 6ft in 08/14/2024 Weight 175 lbs 08/14/2024 BMI 23.73 kg/m2 08/14/2024 Blood pressure systolic 110 mm Hg 08/15/19 25 Blood pressure diastolic 68 mm Hg 025 Heart Rate 59 /min 08/14/2024 Encounters Encounter Location Date Provider Diagnosis [facility] [address] [place] [address] 08/14/2024 Megan Perica Tinea unguium B35.1 ; Neuropathy G62.9 ; Pain in toe of left foot M79.675 and Pain in toe of right foot M79.674 Assessments Encounter Date Diagnosis (ICD Code) Assessment Notes Treatment Notes Treatment Clinical Notes Section Notes 08/14/2024 Tinea unguium (ICD-10 - B35.1) 08/14/2024 Neuropathy (ICD-10 - G62.9) 08/14/2024 Pain in toe of left foot (ICD-10 - M79.675) 08/14/2024 Pain in toe of right foot (ICD-10 - M79.674) Plan Of Treatment Next Appt Details Follow Up: 3 Months, Reason: Provider Name:Megan san, 11/21/2024 10:00:00 AM, [address] [place] [address], [phone], Procedure Notes * Category Sub-Category Detail Notes [...] use of a nail nipper and/or dremel-type sausage grinder, to a more viable healthy nail plate [...] to maintain effectiveness in symptomatic relief - 05796 Progress Notes * Aneudy CRUMP LDOB: [birth year] (73 yo M)Acc No.[id number]:08/14/2024 Progress Note Patient:?Aneudy CRUMP Provider:?Megan Fields DPM :1950???Age:73 Y???Sex:Male José Luis e:08/14/2024 Address:[address] [facility] Subjective: * Chief Complaints: * ???Painful nail(s) aggrevate d by shoes causing difficulty standing/walking * HPI: ???Painful Nails:?Pt States Last PCP Visit:?Date:?02/07/2024 * ROS:?General/Constitutional:?Nausea?denies.?Vomiting?denies.?Hunger Thirst?denies.?Loss appetite?denies.?Chills?denies.?Fatigue?denies.?Fever?denies.?Night Sweats?denies.?Unexplained weight loss?denies.?Unexplained weight gain?denies.?HEENTM:?Dentures?admits.?Dizziness?denies.?Glasses/contacts?admits.?Retinopathy?de nies.?Blurred/double vision?denies.?TMJ?denies.?Discharge/drainage?denies.?Implants?denies.?Sore throat?denies.?Dental implants?denies.?Hard of hearing ?denies.?Difficulty chewing/swallowing/speaking?denies.?Nose bleeds?denies.?Sore mouth?denies.?Respiratory:?On Oxygen?denies.?Pneumonia/pleurisy?denies.?Bronchitis?denies.?Emphysema?denies.?C oughing?denies.?Cough blood?denies.?Shortness of breath?denies.?Wheezing?denies.?Cardiovascular:?Pacemaker?denies.?MVP?denies.?WPW?denies.?CHF?denies.?Heart attack?denies.?Septal defect?denies.?Rapid beat?denies.?Chest pain ?denies.?Atrial Fib.?denies.?Murmur/Palpitations?denies.?Gastrointestinal:?Hemorrhoids?denies.?Stomach/Abdominal pain?denies.?Dark blood stool?denies.?Irritable bowel ?denies.?Constipation?denies.?Diarrhea?denies.?Hematology:?Swelling?denies.?Clots?denies.?Varicose Veins?denies.?Bruising?denies.?Bleeding problem?denies.?Genitourinary:?Blood urine?denies.?Frequent/Painfu/urination/bladder control?denies.?Kidney stones?denies.?Infection (UTI)?denies.?Nephropathy?denies.?sex trans dis (STD)?denies.?Prostate?denies.?Musculoskeletal:?Hammertoes?denies.?Bunions?denies.?Back Pain?denies.?Muscle Cramps/ Resting?denies.?Muscle cramps / walking?denies.?Generalized aches and pains?denies.?Weakness?admits.?Integ.:?Peoples?denies.?Scars?denies.?Corns/calluses?denies.?Ingrown nails?denies.?Painful nails?denies.?Open Sores?denies.?Rashes?denies.?Neurologic:?Difficulty sleeping?denies.?Brain disorder?denies.?Numbness?admits.?Balance trouble?denies.?Confusion?denies.?Fainting/blackouts?denies.?Tingling?admits.?Tr emors?denies.? * Medical History:? * Surgical History:?herniated disc- spinal stenosis surgery 03/2020herniated disc 09/2020 * Hospitalization/Major Diagno stic Procedure:?[facility]- UTI -Sepsis 07/2022 * Family History:?Mother: dece ased, diagnosed with Other malignant neoplasm of unspecified site.?Father: , diagnosed with Unspecified essential hypertension, Unspecified heart disease.?Siblings: diagnosed with Other malignant neoplasm of unspecified site, Diabetic - NIDDM.? * Social History:?Tobacco Use:?Tobacco use other than smoking?Are you an other tobacco user??No ?Tobacco Control (Standard)?Tobacco use:?Nonsmoker ?Additional Findings: Tobacco non-user?Current nonsmoker ???Drugs/Alcohol:?Drugs?Have you used drugs other than those for medical reasons in the past 12 months??No ???Miscellaneous:?Caffeine: yes, frequency: , 2-3 cups per day. ?Children: yes, 6. ?Exercise: yes, walking. ?Marital status: . 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 ???Drug/Alcohol:?AUDIT-C (Standard)?Did you have a drink containing alcohol in the past year??No ?Points?0 ?Interpretation?Negative * Medications:?TakingbuPROPion HCl QUEtiapine Fumarate 25 MG Tablet 1 tablet at bedtime Orally Once a day Taking buPROPion HCl Taking QUEtiapine Fumarate 25 MG Tablet 1 tablet at bedtime Orally Once a day Not-Taking/PRNPhysical Therapy . . . . 2- 3x/week PARoxetine HCl Baclofen Medication List reviewed and reconciled with the patientNot-Taking/PRN Physical Therapy . . . . 2-3x/week Not-Taking/PRN PARoxetine HCl Not-Taking/PRN Baclofen Medication List reviewed and reconciled with the patient * Allergies:?N.K.D.A.yes[Aller gies Verified] Objective: * Vitals:?Ht: 6ft, Wt:175, BMI :23.73, Shoe size: 11, BP:110/68mm Hg, HR:59/min, Ht-cm: 182.88 cm, Wt-k.38 kg. * Examination: [...] use of a nail nipper and/or dremel-type sausage grinder, to a more viable healthy nail plate [...] to maintain effectiveness in symptomatic relief - 91614.? * Procedure Codes:?75160 DEBRI DE NAIL, 6 OR MORE * Preventive Medicine:? ??Screening/Special Tests:?Fall Risk?Assessment:?Performed ?Screening:?No falls in the past year ?FALLS: Screening for Future Fall Risk?Have you had two or more falls in the past year??No ?Have you had any falls with injury in the past year??No * Follow Up:?3 Months * Images: * Sign off status: Completed true * Provider:?Megan Fields DPM Date:?12/2024 Generated for Dhaval garza/Mahnaz/Kiki on:?09/11/2024 03:22 PM EDT History and Physical Notes * HPI (History of Present Illness) Category Sub-Category Detail Notes Category Not es Painful Nails Pt States Last PCP Visit: Date:: 02/07/2024 Examination Category Sub-Category Detail Notes Category Not [...]
== END 2024-09-11 15:16 | disposition home or self-care (01) ==
LOC: HO.HMCSH 14:04
PROVIDERS: PCP Internal Medicine; Visit Provider Internal Medicine
DX: G25.9 Extrapyramidal and movement disorder, unspecified (principal)

== ENCOUNTER → 2024-09-11 14:04 | Outpatient (BNVA) | payer MEDICARE, BC, SELFPAY | PROVIDERS: PCP Internal Medicine; Visit Provider Internal Medicine | DX: G25.9 Extrapyramidal and movement disorder, unspecified (principal) | CPT/HCPCS: 99202 ==

== ENCOUNTER 2024-09-21 13:23 | Outpatient (REF) | payer MEDICARE, BC, SELFPAY ==
--- OUTSIDE RECORDS SUMMARY | 2024-09-21 13:26 | XMS_ITS | Clinical Summary ---
Author Organization [facility] Address [address] [place] [address] Care Team Providers Care Meteorologist Liaison Name Role Phone Unavailable Primary Care Provider [...] this topic Aneudy Smiley Personal/Family Self 1950 [address] [facility] [place] [address]
--- OUTSIDE RECORDS SUMMARY | 2024-09-21 13:26 | XMS_ITS ---
Author Name [facility] Organization Unknown Encounters Encounter Type Encounter Reason Primary Diagnosis [facility] Care Team Organization Name Specialty Phone Email Start Date End Da te [facility] 2024
--- OUTSIDE RECORDS SUMMARY | 2024-09-21 13:26 | XMS_ITS ---
Author Organization [facility] Address [address] [place] [address] Care Team Providers Care Social Worker Assistant Name Role Phone Megan Fields Unavailable [phone] Allergies No Known Allergies REASON FOR VISIT [...] 025 Encounters Encounter Location Date Provider Diagnosis [facility] [address] [place] [address] 05/15/2024 Megan Diamond Tinea unguium B35.1 ; [...] Reason: Provider Name:Megan san, 11/21/2024 10:00:00 AM, [address] [place] [address], [phone], Procedure Notes * Category Sub-Category Detail Notes [...] use of a nail nipper and/or dremel-type computer numerical control grinder, to a more viable healthy nail [...] to maintain effectiveness in symptomatic relief - 60768 Progress Notes * Aneudy CRUMP LDOB: [birth year] (73 yo M)Acc No.[id number]:05/15/2024 Progress Note Patient:?Aneudy CRUMP Provider:?Megan Fields DPM :1950???Age:73 Y???Sex:Male José Luis e:05/15/2024 Address: [place], [place] Pcp:Lawrence Santoyo Subjective: * Chief Complaints: * [...] 03/2020herniated disc 09/2020 * Hospitalization/Major Diagno stic Procedure:[place] [place] 07/20[place] * Family History:?Mother: dece [...] use of a nail nipper and/or dremel-type computer numerical control grinder, to a more viable healthy nail [...] to maintain effectiveness in symptomatic relief - [address]654.? * Procedure Codes:?36026 DEBRI DE NAIL, 6 OR MORE * [...] Fields DPM Date:?11/2024 Generated for Dhaval garza/Mahnaz/Kiki on:?09/21/2024 01:26 PM EDT History and Physical Notes * [...]
--- OUTSIDE RECORDS SUMMARY | 2024-09-21 13:26 | XMS_ITS ---
Author Organization [facility] Address [address] [place] [address] Care Team Providers Care Dairy Farmworker Name Role Phone Diamond Megan Unavailable [phone] Allergies No Known Allergies REASON FOR VISIT [...] 08/14/2024 Encounters Encounter Location Date Provider Diagnosis [facility] [address] [place] [address] 08/14/2024 Megan Perica Tinea unguium B35.1 ; [...] Reason: Provider Name:Megan san, 11/21/2024 10:00:00 AM, [address] [place] [address], [phone], Procedure Notes * Category Sub-Category Detail Notes [...] use of a nail nipper and/or dremel-type rail grinder, to a more viable healthy nail [...] to maintain effectiveness in symptomatic relief - 51467 Progress Notes * Aneudy CRUMP LDOB: [birth year] (73 yo M)Acc No.[id number]:08/14/2024 Progress Note Patient:?Aneudy CRUMP Provider:?Megan Fields DPM :1950???Age:73 Y???Sex:Male José Luis e:08/14/2024 [place] Subjective: * Chief Complaints: * ???Painful nail(s) [...] 03/2020herniated disc 09/2020 * Hospitalization/Major Diagno stic Procedure:?[facility] [place]- UTI -Sepsis 07/2022 * Family History:?Mother: dece [...] ?Exercise: yes, walking. ?Marital status: . 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 ???Drug/Alcohol:?AUDIT-C (Standard)?Did you have a drink [...] use of a nail nipper and/or dremel-type rail grinder, to a more viable healthy nail [...] to maintain effectiveness in symptomatic relief - 66572.? * Procedure Codes:?86626 DEBRI DE NAIL, 6 OR MORE * [...] Provider:?Megan Fields DPM Date:?12/2024 Generated for Dhaval garza/Mahnaz/Javiersmitting on:?09/21/2024 01:26 PM EDT History and Physical [...]
--- OUTSIDE RECORDS SUMMARY | 2024-09-21 13:26 | XMS_ITS ---
Author Organization [facility] Address [address] [facility] [address] Care Team Providers Care Linux Support Engineer Name Role Phone Megan Fields Unavailable [phone] Allergies No Known Allergies REASON FOR VISIT [...] Problem Status W/U Status Risk Notes Problem [id number] Unsteady gait (R26.81) Active confirmed Vital Signs Height 6ft in 02/07/2024 Weight 177 lbs 02/07/2024 BMI 24 kg/m2 02/07/2024 Blood pressure systolic 120 mm Hg 02/07/20 24 Blood pressure diastolic 80 mm Hg 024 Encounters Encounter Location Date Provider Diagnosis [facility] [address] [place] [address] 02/07/2024 Megan Fields Tinea unguium B35.1 ; [...] Reason: Provider Name:Megan san, 11/21/2024 10:00:00 AM, [address] [place] [address], [phone], Procedure Notes * Category Sub-Category Detail Notes [...] as necessary. Patient chooses, no pharmaceutical tx (53558) Progress Notes * Aneudy CRUMP LDOB: [birth year] (73 yo M)Acc No.[id number]:02/07/2024 Progress Note Patient:?Aneudy Crump Provider:?Megan Fields DPM :1950???Age:73 Y???Sex:Male José Luis e:02/07/2024 Address:[address] [place], [place] [id number] Pcp:Lawrence Santoyo Subjective: * Chief Complaints: * [...] 03/2020herniated disc 09/2020 * Hospitalization/Major Diagno stic Procedure:?[facility] [place]TI -[place]epsis 07/2022 * Family History:?Mother: [...] 6. ?no Exercise. ?Marital status: . 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 * Medications:?TakingbuPROPion HCl Taking buPROPion HCl [...] as necessary. Patient chooses, no pharmaceutical tx (72220).? * Procedure Codes:?86129 DEBRI DE NAIL, 6 OR MORE * [...] the office.?Physical Therapy:?Discussed the potential short and chcf benefits of physical therapy including pain relief, [...] Fields DPEdmar Date:?05/2023 Generated for Dhaval garza/Mahnaz/Kiki on:?09/21/2024 01:26 PM [...]
--- OUTSIDE RECORDS SUMMARY | 2024-09-21 13:26 | XMS_ITS | Clinical Summary ---
Author Organization [facility] Address [address] [place] [address] Care Team Providers Care Speech Pathology Teacher Name Role Phone Lawrence Santoyo MD Primary Care Provider [phone] Surgical History Surgery Date Site/Laterality Comments OTHER SURGICAL HISTORY PROCEDURE: [place] ARTHRD ANT INTERBODY DECOMPRESS CERVICAL BELW C2; COMMENT: Cervical Disc Surgery Dr.. Feliz OTHER SURGICAL HISTORY PROCEDURE: [place] ARTHRD ANT INTERBODY DECOMPRESS CERVICAL BELW C2; COMMENT: Cervical Discectomy, Fusion C4-C5 10/30/19 Dr. Cheney OTHER SURGICAL HISTORY PROCEDURE: [place] BARFIELD FACETECTOMY & FORAMOTOMY 1 VRT SGM LUMBAR; COMMENT: Lumbar Laminectomy 03/24/20 Dr. Cheney Medical History Medical History Date Comments Other cervical disc displace ment, unspecified cervical region DX:Other cervical disc dis placement, unspecified cervical region Pain in right shoulder DX:Pain i n right shoulder Spinal stenosis of lumbar region DX:Spinal stenosis of lumbar region Bipolar disorder ([facility] V2 4, [facility] V28) DX:Bipolar disorder ([facility]) COPD (chronic obstructive pu lmonary disease) ([facility] V24, [facility] V28) DX:COPD (chronic o bstructive pulmonary disease) ([facility]) Smoking DX:Smoking Venous insufficiency DX:Venous i nsufficiency [...] age to complete this topic Care Teams Speech Pathology Teacher Relationship Specialty Start Date End Date Lawrence Santoyo MD [address] [place] [phone] PCP - General Internal Medicine 07/09/19
--- OUTSIDE RECORDS SUMMARY | 2024-09-21 13:27 | XMS_ITS | Patient Health Record ---
Author Organization [facility] Dionisio mcnamara [facility] Address [address] [place] [address] Care Team Providers Care Electric Knife Operator Name Role Phone Megan Fields Unavailable [phone] Allergies No Known Allergies Reason For Referral [...] Problem Status W/U Status Risk Notes Problem [id number] Neuropathy (G62.9) Active confirmed Problem 06835586 Unsteady gait (R26.81) Active confirmed Vital Signs Heart Rate 59 /min 08/14/2024 Blood pressure diastolic 68 mm Hg 08/14/2024 Height 6ft in 08/14/2024 Blood pressure systolic 110 mm Hg 08/14/2024 Weight 175 lbs 08/14/2024 BMI 23.73 kg/m2 08/14/2024 Encounters Encounter Location Date Provider Diagnosis [address] [address] 10/25/2023 Megan Perica Tinea unguium B35.1 ; Neuropathy G62.9 ; Pain in toe of left foot M79.675 and Pain in toe of right foot M79.[address] [address] 02/07/2024 Megan Perica Tinea unguium B35.1 ; Unsteady gait R26.81 ; Neuropathy G62.9 ; Pain in toe of left foot M79.675 and Pain in toe of right foot M79.[address] [address] 05/15/2024 Megan Perica Tinea unguium B35.1 ; Neuropathy G62.9 ; Pain in toe of left foot M79.675 and Pain in toe of right foot M79.[address] [address] 08/14/2024 Megan Perica Tinea unguium B35.1 ; [...] Details Provider Name:Megan san, 11/21/2024 10:00:00 AM, [address] [place] [address], [phone], Insurance Providers Payer Name Payer Address Payer Phone Subscriber Number Group Number Insured Name Patient Relationship to Insured Coverage Start Date Coverage End Date Medicare National [employer]t [employer] [address] [facility] [place] [address] [id number] Aneudy Smiley Self - patient is the insured [facility] [address] [place] [address] [id number] Aneudy Smiley Self - patient is the insured Medical (General) History Medical History History ICD Code Joint implants/screws severe spinal myelopathy/stenosis Surgical History Surgery Date(Month/Year) herniated disc- spinal stenosis surgery 03/2020 herniated disc 09/2020 Hospitalization History Reason Date(Month/[place] [facility] [place]
[2024-09-21 16:12] LABS: Appearance Urine Clear; Color Urine Yellow; Glucose Urine UA Negative (Negative); Leukocyte Esterase Urine Negative (Negative); Nitrite Urine Negative (Negative); Specific Gravity - Urine 1.015 (1.005-1.025); Urine Blood Negative (Negative); Urine Ketones Negative (Negative); Urine Protein Negative (Neg-Trace)
[2024-09-21 16:30] LABS: Hematocrit 43.9 % (42.0-52.0); Hemoglobin 14.8 g/dl (14.0-18.0); Mean Corpuscular HGB Conc 33.7 g/dl (31.0-36.0); Mean Platelet Volume 11.1 fL (9.4-12.4); Platelet Count 208 X10*3/uL (160-400); Red Blood Count 4.93 X10*6/uL (4.60-5.80); Red Cell Distribution Width 11.8 % (11.0-16.0); White Blood Count 5.5 X10*3/uL (4.8-10.8)
[2024-09-21 16:55] LABS: Alanine Aminotransferase 23 U/L (0-40); Albumin Level 4.2 g/dL (3.5-5.0); Alkaline Phosphatase 64 U/L (39-117); Anion Gap 13 (12-20); Aspartate Amino Transferase 31 U/L (5-37); Bilirubin Direct 0.3 mg/dL (0.0-0.5); Bilirubin Total 0.9 mg/dL (0.0-1.0); Blood Urea Nitrogen 11 mg/dL (9-16); Calcium 9.4 mg/dL (8.4-10.2); Carbon Dioxide 25 mmol/L (22-29); Chloride 106 mmol/L (96-108); Cholesterol 179 mg/dL (<200); Estimated Glomerular Filt Rate > 60; Glucose Random 92 mg/dL (60-115); HDL Cholesterol 64 mg/dL (>40); LDL Cholesterol Calculated 105 mg/dL (<100); Potassium 4.6 mmol/L (3.3-5.1); Sodium 139 mmol/L (135-145); Total Protein 6.9 g/dL (6.5-8.0); Triglycerides 52 mg/dL (<150)
[2024-09-21 16:57] LABS: Thyroid Stimulating Hormone 0.85 uIU/mL (0.32-4.0)
== END 2024-09-21 13:24 | disposition home or self-care (01) ==
LOC: HO.HMGCLDS 13:23
PROVIDERS: PCP Internal Medicine; Visit Provider Internal Medicine
DX: G25.9 Extrapyramidal and movement disorder, unspecified (principal)
CPT/HCPCS: 36415; 80048; 80061; 80076; 81003; 84443; 85027

== ENCOUNTER 2024-12-11 13:47 | Outpatient (AMB) | payer MEDICARE, BC, SELFPAY ==
[2024-12-11 14:08] VITALS: BP 110/62; PULSE 70; RESP 16; TEMP 36.4; O2SAT 98; BMI 23.7
--- NOTE | 2024-12-11 14:08 | MHC.PC.OV ---
Vital Signs 12/11/24 14:08 Height 6 ft Weight 175 lb BMI 23.7 BP 110/62 Respiration 16 Pulse 70 Pulse Source Pulse Oximeter Temp 97.5 F Temp Source Temporal Artery Scan Pulse Oximetry (%) 98 Intake Visit Reasons: 3 month f/u - see comments Traffic Enumerator Required: No Accompanied by: Self / Same As Patient Allergies No Known Drug Allergies Allergy (Unknown, Verified 12/11/24 14:09) Unknown Tobacco use date assessed: 12/11/24 Dental Screening Dental Screen Date: 09/11/24 [facility] Medical History (Updated 12/11/24 @ 14:45 by Brennan Sylvester MD) Dupuytren's contracture of left hand Cervical myelopathy Movement disorder Depression Surgical History Previous back surgery History of tonsillectomy Family History Mother No problems noted. Father No problems noted. 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 1. Little interest or pleasure in doing things: not at all 2. Feeling down, depressed, or hopeless: not at all 3. Trouble falling or staying asleep, or sleeping too much: not at all 4. Feeling tired or having little energy: not at all 5. Poor appetite or overeating: not at all 6. Feeling bad about yourself - or that you are a failure or have let yourself or your family down: not at all 7. Trouble concentrating on things, such as reading the newspaper or watching television: not at all 8. Moving or speaking so slowly that other people could have noticed. Or the opposite - being so fidgety or restless that you have been moving around a lot more than usual: not at all 9. Thoughts that you would be better off or of hurting yourself in some way: not at all Total score: 0 Source: Developed by Drs. Paulino Sommers, Cristal Dallas, Osorio Velazquez and colleagues, with an educational elida from [employer]. Thrive Questionnaire Date Thrive assessed: 09/11/24 I am a: Patient What is your living situation today?: I have a steady place to live Within the past 12 months, did the food you bought not last and you didn't have the money to get more?: Never true Within the past 12 months, did you worry whether your food would run out before you got money to buy more?: Never true Do you have trouble paying for medicines?: No Do you have trouble getting transportation to medical appointments?: No Do you have trouble paying your heating and electricity bill?: No Do you have trouble taking care of your child, family member or friend?: No Do you have trouble with day-to-day activities such as bathing, preparing meals, shopping, managing finances, etc.?: No Are you currently unemployed and looking for a job?: No Are you interested in more education?: No Please select the resources that you would like help with: None THRIVE Score: 0 AUDIT C Alcohol Use Questionnaire (AUDIT-C) 1. How often do you have a drink containing alcohol?: Never 3. How often do you have six or more drinks on one occasion?: Never Total Score: 0 LUIS-7 AMB Questionnaire LUIS-7 Date LUIS - 7 assessed: 09/11/24 Feeling nervous, anxious, or on edge: 0 = Not at all Not being able to stop or control worryin = Not at all Worrying too much about different things: 0 = Not at all Trouble relaxin = Not at all Being so restless that it is hard to sit still: 0 = Not at all Becoming easily annoyed or irritable: 0 = Not at all Feeling afraid as if something awful might happen: 0 = Not at all Total LUIS-7 score (0-4 normal; 5-9 mild; 10-14 moderate; 15-21 severe): 0 Source: Developed by Cristal Calderon Kurt Kroenke and colleagues, with an educational elida from [employer]. Physical exam (Primary Care) Vital Signs: Last Vital Signs Temp 97.5 F 12/11/24 14:08 Pulse 70 12/11/24 14:08 Resp 16 12/11/24 14:08 BP 110/62 12/11/24 14:08 Pulse Ox 98 12/11/24 14:08 BMI result Body Mass Index 23.7 Tobacco/Smoking Status: Tobacco use Status Tobacco use date assessed 12/11/24 12/11/24 14:18 Patient Tobacco Use Status Former Tobacco user 12/11/24 14:18 PHQ-9: PHQ-9 Score PHQ-9: Total score 0 12/11/24 14:18 Thrive Assessment: Date of Thrive Assessment Date Thrive assessed 09/11/24 12/11/24 14:18 Coding Level of Care Code Est Pt Level 4 (45754) Complex EM visit Add On G2211 Diagnoses Cervical myelopathy G95.9 Dupuytren's contracture of left hand M72.0 Nocturia R35.1 Assessment & Plan Assessment & Plan (1) Cervical myelopathy: Code(s): G95.9 - Disease of spinal cord, unspecified Category: Medical Plan: Patient saw the neurologist after the last visit (Dr Kaur). PT scheduled. Has been diagnosed with cervical myelopathy from previous cervical disc surgeries (2) Dupuytren's contracture of left hand: Code(s): M72.0 - Palmar fascial fibromatosis [Dupuytren] Category: Medical Plan: Hand Surgeon appt sent. (3) Nocturia: Code(s): R35.1 - Nocturia Plan: Increased frequency of urination. PSA to be checked prior to altering any medication dosages. Plan History of Present Illness - The patient is a 74-year-old male presenting with a six-month checkup and management of ongoing health issues. - Benign Prostatic Hyperplasia: The patient is on tamsulosin 0.4 mg but reports persistent nocturia and frequent urination, impacting daily activities. - Urinary Incontinence: An episode of incontinence occurred during a hot day when the patient could not reach a bathroom in time. - Trigger Finger: The patient has a non-painful trigger finger affecting hand function, with surgical correction being considered. - Constipation: The patient is concerned about infrequent bowel movements and is considering using laxatives like Metamucil or milk of magnesia. - Cervical Myelopathy: Diagnosed with cervical myelopathy, the patient is receiving physical therapy for gait and leg strengthening. Social History - The patient is and often goes for rides with his . - The patient has a son with whom he visits and spends time at his pool. Review of Systems - Genitourinary: Reports nocturia every three hours and frequent urination during the day. Reports urinary incontinence during a hot day. - Musculoskeletal: Reports a trigger finger that does not cause pain but affects hand function. - Gastrointestinal: Reports infrequent bowel movements, sometimes going two days without a bowel movement. - Neurological: Reports gait issues and is undergoing physical therapy for leg strengthening. Physical Exam General: Cooperative and healthy appearing Nutritional Appearance: Well nourished Orientation/consciousness: Patient oriented x3 Limitations: No limitations Head: Normal to inspection General: Appearance normal, both eyes and all related structures Neck: Normal visual inspection Chest: Normal palpation of entire chest wall Respiratory: N ormal respiratory effort Neurology: Patient oriented x3, cervical myelopathy suspected, patient referred for physical therapy for strengthening of legs and gait. Results Plan 1. Benign Prostatic Hyperplasia - Consider increasing tamsulosin dosage to manage nocturia and frequent urination. - Referral to a urologist for further evaluation and management. 2. Urinary Incontinence - Discussed the need for better access to restrooms during outings to prevent incontinence episodes. 3. Trigger Finger - Referral to a hand surgeon for surgical correction of the trigger finger. 4. Constipation - Recommended trying rqkq-lkv-ihjmwrk laxatives such as Metamucil or milk of magnesia for bowel regulation. 5. Cervical Myelopathy - Continue physical therapy for gait and leg strengthening. - Discussed the possibility of attending physical therapy sessions at a more convenient location. Discussion Notes I discussed with the patient the potential benefits of increasing the tamsulosin dosage to manage his nocturia and frequent urination. I recommended a referral to a urologist for further evaluation. We also talked about the importance of having better access to restrooms to prevent incontinence episodes. For his trigger finger, I suggested a referral to a hand surgeon for surgical correction. Regarding his constipation, I advised trying vtiu-xvt-lfjdwos laxatives like Metamucil or milk of magnesia. We reviewed his cervical myelopathy management, emphasizing the continuation of physical therapy and exploring more convenient therapy locations. Patient Instructions - Consider increasing tamsulosin dosage as discussed with your doctor. - Schedule an appointment with a urologist for further evaluation of urinary symptoms. - Ensure easy access to restrooms during outings to prevent incontinence. - Follow up with a hand surgeon for your trigger finger. - Try hfwg-zia-mtjlchm laxatives like Metamucil or milk of magnesia for constipation. - Continue physical therapy for cervical myelopathy and consider attending sessions at a more convenient location. Orders: Orders PT Evaluation and Treatment Today G95.9 - Disease of spinal cord, unspecified PSA,Total (Free>4and<10) Today R35.1 - Nocturia Referrals Orthopedics Referral M72.0 - Palmar fascial fibromatosis [Dupuytren]
--- OUTSIDE RECORDS SUMMARY | 2024-12-11 14:28 | XMS_ITS | Encounter Summary ---
Author Organization [facility] Address [address] [place] [address] Phone Care Team Providers Care Line Haul Driver Name Role Phone Lawrence Santoyo MD Primary Care Provider + Reason for Referral * Consultation (Elective) - Closed Specialty Diagnoses / Procedures Referred By Contac t Referred To Contact Neurology Diagnoses Abnormal MRI Apraxic gait Lawrence Santoyo MD Phone: tel: fax: [address] [address] Phone: tel: Referral ID Status Reason Start Date Expiration Date Visits Re quested Visits Authorized [id number] Closed 04/15/2020 04/15/2021 1 1 Encounter Details Date Type Department Care Team (Latest Contact Info) Description 04/15/2020 Transcribe Orders [facility] [place] Department of Neurology [address], [address] [place] [address] Lawrence Santoyo MD [address] [place] [address] Abnormal MRI (Primary Dx); Apraxic gait Social History Tobacco Use Types Packs/Day Years Used Date Smoking Tobacco: Never Assessed Sex and Gender Information Value Date Recorded Sex Assigned at Male 02/15/2020 12:56 PM EDT Legal Sex Male 7:55 PM EST Gender Identity Male 02/15/2020 12:56 PM EDT Sexual Orientation Straight 02/15/2020 12 :56 PM EDT documented as of this encounter Plan of Treatment Scheduled Referrals Name Type Priority Associated Diagnoses Order Schedule Ambulatory referral to [facility] Neurology Outpatient Referral Routine Abnormal MRI Apraxic gait Ordered: 04/15/2020 documented as of this encounter Visit Diagnoses Diagnosis Abnormal MRI- Primary Other nonspecific (abnormal) findings on radiological and other examinations of body structure Apraxic gait Other symbolic dysfunction documented in this encounter Care Teams Line Haul Driver Relationship Specialty Start Date End Date Lawrence Santoyo MD PCP - General Internal Medicine 02/15/20 documented as of this encounter Additional Source Comments The information contained in this document represents components of the legal health record. It is not the complete legal health record.[facility]
--- OUTSIDE RECORDS SUMMARY | 2024-12-11 14:28 | XMS_ITS | Clinical Summary ---
Author Organization [facility] [address] [facility] Address [address] [place] [address] Phone Care Team Providers Care Media Marketing Director Name Role Phone Lawrence Santoyo MD Primary Care Provider [phone] Encounters Date Type Department Care Team Description 11/20/2024 7:19 AM EDT - 11/20/2024 11:59 PM EDT Hospital Encounter [facility] CT Scan [address] [place] [address] Encounter for screening for malignant neoplasm of respiratory organs; Personal history of nicotine dependence Discharge Disposition: Home or Self Care 10/26/2024 Telephone Lung Screening Program - [address] [place] [address] Ellie Dallas [place] Appointment (1st Notification) from Last 3 Months Surgical History Surgery Date Site/Laterality Comments OTHER SURGICAL HISTORY PROCEDURE: [place] ARTHRD ANT INTERBODY DECOMPRESS CERVICAL BELW C2; COMMENT: Cervical Disc Surgery Dr.. Feliz OTHER SURGICAL HISTORY PROCEDURE: [place] ARTHRD ANT INTERBODY DECOMPRESS CERVICAL BELW C2; COMMENT: Cervical Discectomy, Fusion C4-C5 10/30/19 Dr. Cheney OTHER SURGICAL HISTORY PROCEDURE: [place] BARFIELD FACETECTOMY & FORAMOTOMY 1 VRT SGM LUMBAR; COMMENT: Lumbar Laminectomy 03/24/20 Dr. Cheney Medical History Medical History Date Comments Other cervical disc displace ment, unspecified cervical region DX:Other cervical disc dis placement, unspecified cervical region Pain in right shoulder DX:Pain i n right shoulder Spinal stenosis of lumbar region DX:Spinal stenosis of lumbar region Bipolar disorder (CMS/HCC V2 4, CMS/HCC V28) DX:Bipolar disorder (HCC) COPD (chronic obstructive pu lmonary disease) (CMS/HCC V24, CMS/HCC V28) DX:COPD (chronic o bstructive pulmonary disease) ([facility]) Smoking DX:Smoking Venous insufficiency DX:Venous i nsufficiency [...] Panel) 04/10/2022 Colorectal Cancer Screening: Colonoscopy 04/10/2022 Falls Risk Assessment 04/10/2022 Hepatitis C Screening 04/10/2022 Social Influencers of Health Screening 04/10/2022 Medicare Annual Wellness Visit 02/24/2023 02/24/2022 COVID-19 Vaccine ( season) 2024 02/10/2023, 03/04/2021, 06/25/2020, Additional history exists Depression Screening 05/09/2024 Influenza Vaccine (#1) 2025 , 02/24/2022, 03/03/2021, Additional history exists RSV Immunization Adult Patients [...] on patient's age to complete this topic Procedures Procedure Name Priority Date/Time Associated Diagnosis Comments CT LUNG SCREENING Routine 11/20/2024 7:3 0 AM EDT Encounter for screening for malignant neoplasm of respiratory organs Personal history of nicotine dependence from Last 3 Months Results * CT Lung Screening (11/20/2024 7:30 AM EDT) Anatomical Region Laterality Modality Chest Computed Tomogra phy 11/22/2024 2:35 PM EDT Impressions 11/22/2024 2:46 PM EDT Lung RADS 2. Guidelines recommend repeat low-dose screening CT in 12 months. -------- FINAL REPORT -------- Dictated By: Axel Alvarenga Dictated Date: 11/22/2024 14:35 ET Assigned Physician: Axel Alvarenga Reviewed and Electronically Signed By: Axel Alvarenga Signed Date: 11/22/2024 14:46 ET Workstation ID: [id number] Transcribed By: Self Edit Transcribed Date: 11/22/2024 14:41 ET Narrative 11/22/2024 2:46 PM EDT PROCEDURE: Low-dose CT of the chest without intravenous contrast. TECHNIQUE: Low-dose CT of the chest without intravenous contrast administration. Coronal and sagittal reformats and MIP reconstructions were created. Dose length product: 127 mGy-cm. HISTORY: Lung cancer screening, >=20 pk yr smoking history in last 15 yrs (Age 50-80y) COMPARISON: 05/17/2023. FINDINGS: Lungs/pleura: The central airways are clear and normal in caliber. Mild centrilobular and paraseptal emphysema. Stable 7 mm left lower lobe nodule, series 3 image 215. No new suspicious nodule. No pleural effusion or pneumothorax. Mediastinum/ana: No mediastinal mass or lymphadenopathy. No appreciable hilar lymphadenopathy on limited noncontrast evaluation. Vasculature: Normal caliber pulmonary arteries. Mild atherosclerotic calcifications of the aorta and great vessels. Cardiac: Normal heart size. Mild coronary artery calcification. Chest wall: No axillary or supraclavicular lymphadenopathy. Limited abdomen: Unremarkable. Bones: Lower cervical ACDF. Degenerative changes of the spine. 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 Mild degenerative changes of both shoulders. Procedure Note Axel Alvarenga MD - 11/22/2024 PROCEDURE: Low-dose CT of the chest without intravenous contrast. TECHNIQUE: Low-dose CT of the chest without intravenous contrastadministration. Coronal and sagittal reformats and MIP reconstructionswere created. Dose length product: 127 mGy-cm. HISTORY: Lung cancer screening, >=20 pk yr smoking history in last 15 yrs(Age 50-80y) COMPARISON: 05/17/2023. FINDINGS: Lungs/pleura: The central airways are clear and normal in caliber. Mildcentrilobular and paraseptal emphysema. Stable 7 mm left lower lobenodule, series 3 image 215. No new suspicious nodule. No pleuraleffusion or pneumothorax. Mediastinum/ana: No mediastinal mass or lymphadenopathy. No appreciablehilar lymphadenopathy on limited noncontrast evaluation. Vasculature: Normal caliber pulmonary arteries. Mild atheroscleroticcalcifications of the aorta and great vessels. Cardiac: Normal heart size. Mild coronary artery calcification. Chest wall: No axillary or supraclavicular lymphadenopathy. Limited abdomen: Unremarkable. Bones: Lower cervical ACDF. Degenerative changes of the spine. 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 Milddegenerative changes of both shoulders. IMPRESSION: Lung RADS 2. Guidelines recommend repeat low-dose screening CT in 12months. -------- FINAL REPORT -------- Dictated By: Axel Alvarenga Dictated Date: 11/22/2024 14:35 ET Assigned Physician: Axel Alvarenga Reviewed and Electronically Signed By: Axel Alvarenga Signed Date: 11/22/2024 14:46 ET Workstation ID: [id number] Transcribed By: Self Edit Transcribed Date: 11/22/2024 14:41 ET us Rani Rodriguez MD IMG CT PROCEDURES Final Result from Last 3 Months Insurance MEDICARE [facility] Member Subscriber Plan / Payer ( fective 2024-Present) Name:RAY CRUMP Relation to Subscriber:Self Name:Ray Crump Payer ID:[id number] Group ID:[id number] Type:Not on file Address: [facility] [id number] [place] [address] Care Teams Media Marketing Director Relationship Specialty Start Date End Date Lawrence Santoyo MD [address] [place] [address] PCP - General Internal Medicine 07/09/19
--- OUTSIDE RECORDS SUMMARY | 2024-12-11 14:28 | XMS_ITS | Clinical Summary ---
Author Organization [facility] Address [address] [place] [address] Care Team Providers Care Civil Drafting Technician Name Role Phone Unavailable Primary Care Provider [...] 1 - PCV) 2017 Influenza Vaccine (#1) 2025 RSV Adult > 60+ Yrs or Pregn ant (1 - 1-dose 75+ series) 11/17/2027 Hepatitis B Vaccines Aged Out No long er eligible based on patient's age to complete this topic RSV Ped < 20 months Aged Out No longe r eligible based on patient's age to complete this topic Aneudy Smiley Personal/Family Self [address] [facility] [place] [address]
== END 2024-12-11 14:49 | disposition home or self-care (01) ==
LOC: HO.HMCSH 13:47
PROVIDERS: PCP Internal Medicine; Visit Provider Internal Medicine
DX: G95.9 Disease of spinal cord, unspecified (principal); M72.0 Palmar fascial fibromatosis [Dupuytren]; R35.1 Nocturia

== ENCOUNTER → 2024-12-11 13:47 | Outpatient (BNVA) | payer MEDICARE, BC, SELFPAY | PROVIDERS: PCP Internal Medicine; Visit Provider Internal Medicine | DX: G95.9 Disease of spinal cord, unspecified (principal); M72.0 Palmar fascial fibromatosis [Dupuytren]; R35.1 Nocturia | CPT/HCPCS: 99212 ==

== ENCOUNTER 2024-12-12 09:13 | Outpatient (REF) | payer MEDICARE, BC, SELFPAY ==
--- OUTSIDE RECORDS SUMMARY | 2024-12-12 09:31 | XMS_ITS | Encounter Summary ---
Author Organization [facility] Address [address] [facility] [address] [place] [address] Phone Care Team Providers Care Hack Saw Operator Name Role Phone Lawrence Santoyo MD Primary Care Provider + Reason for Referral * Consultation (Elective) - Closed Specialty Diagnoses / Procedures Referred By Contac t Referred To Contact Neurology Diagnoses Abnormal MRI Apraxic gait Lawrence Santoyo MD Phone: tel: fax: [address] [address] Phone: tel: Referral ID Status Reason Start Date Expiration Date Visits Re quested Visits Authorized [id number] Closed 04/15/2020 04/15/2021 1 1 Encounter Details Date Type Department Care Team (Latest Contact Info) Description 04/15/2020 Transcribe Orders [facility] Department of Neurology [address] [facility], 8th [address], [address] [place] [address] Lawrence Santoyo MD [address] [place] [phone] Abnormal MRI (Primary Dx); Apraxic gait Social [...] Associated Diagnoses Order Schedule Ambulatory referral to [facility] Neurology Outpatient Referral Routine Abnormal MRI Apraxic gait Ordered: 04/15/2020 documented as of this encounter Visit Diagnoses Diagnosis Abnormal MRI- Primary Other nonspecific (abnormal) findings on radiological and other examinations of body structure Apraxic gait Other symbolic dysfunction documented in this encounter Care Teams Hack Saw Operator Relationship Specialty Start Date End Date Lawrence Santoyo MD PCP - General Internal Medicine 02/15/20 documented as of this encounter Additional Source Comments The information contained in this document represents components of the legal health record. It is not the complete legal health record.[facility]
--- OUTSIDE RECORDS SUMMARY | 2024-12-12 09:31 | XMS_ITS | Clinical Summary ---
Author Organization [facility] [address] [facility] Address [address] [place] [address] Phone Care Team Providers Care Street Light Inspector Name Role Phone Lawrence Santoyo MD Primary Care Provider [phone] Encounters Date Type Department Care Team Description 11/20/2024 7:19 AM EDT - 11/20/2024 11:59 PM EDT Hospital Encounter [facility] CT Scan [address] [place] [address] Encounter for screening for malignant neoplasm of respiratory organs; Personal history of nicotine dependence Discharge Disposition: Home or Self Care 10/26/2024 Telephone Lung Screening Program - [address] [place] [address] Ellie Dallas [place] Appointment (1st Notification) from Last 3 Months Surgical History Surgery Date Site/Laterality Comments OTHER SURGICAL HISTORY PROCEDURE: [place] ARTHRD ANT INTERBODY DECOMPRESS CERVICAL BELW C2; COMMENT: Cervical Disc Surgery Dr.. Feliz OTHER SURGICAL HISTORY PROCEDURE: [place] ARTHRD ANT INTERBODY DECOMPRESS CERVICAL BELW C2; COMMENT: Cervical Discectomy, Fusion C4-C5 10/30/19 Dr. Cheney OTHER SURGICAL HISTORY PROCEDURE: [place] BARFIELD FACETECTOMY & FORAMOTOMY 1 VRT SGM [...] V28) DX:COPD (chronic o bstructive pulmonary disease) ([facility]) Smoking DX:Smoking Venous insufficiency DX:Venous i nsufficiency [...] Signed Date: 11/22/2024 14:46 ET Workstation ID: [id number] Transcribed By: Self Edit Transcribed Date: 11/22/2024 [...] Signed Date: 11/22/2024 14:46 ET Workstation ID: [id number] Transcribed By: Self Edit Transcribed Date: 11/22/2024 14:41 ET us Rani Rodriguez MD IMG CT PROCEDURES Final Result from Last 3 Months Insurance MEDICARE [facility] Member Subscriber Plan / Payer ( fective 2024-Present) Name:RAY CRUMP Relation to Subscriber:Self Name:Ray Crump Payer ID:[id number] Group ID:[id number] Type:Not on file Address: [facility] [id number] [place] [address] Light Inspector Relationship Specialty Start Date End Date Lawrence Santoyo MD [address] [place] [address] PCP - General Internal Medicine 07/09/19
--- OUTSIDE RECORDS SUMMARY | 2024-12-12 09:31 | XMS_ITS | Clinical Summary ---
Author Organization [employer] [facility] Address [address] [place] [address] Care Team Providers Care Software Engineering Associate Manager Name Role Phone Unavailable Primary Care Provider [...] this topic Aneudy Smiley Personal/Family Self 1950 [address] [facility] [place] [address]
--- OUTSIDE RECORDS SUMMARY | 2024-12-12 09:31 | XMS_ITS | Patient Health Record ---
Author Organization [facility] Address [address] [facility] [place] [address] Care Team Providers Care Government Affairs Researcher Name Role Phone Brennan Sylvester Primary Care Provider Megan Fields Unavailable [phone] Allergies No Known Allergies Reason For Referral No Information Medications Medication SIG (Take, Route, Frequency, Duration) Notes Start Date End Date Status QUEtiapine Fumarate 25 MG 1 tablet at bedtime Orally Once a day Active Physical Therapy . . . 2-3x/week; Durat ion: 3-4 weeks 02/07/2024 Not-Taking PARoxetine HCl Not-T aking Baclofen Not-Taking Tamsulosin HCl 0.4 MG 1 capsule Orally O nce a day Active buPROPion HCl Active Immunizations Vaccine Route Administration Date Status Comme nts Influenza Unknown 03/06/2024 Administered Social History Tobacco Use: Social History Observation [...] Problem Status W/U Status Risk Notes Problem Neuropathy (928576075) Neuropathy (G62.9) Active confirmed Problem Unsteady gait (R26.81) Active confirmed Vital Signs Heart Rate 59 /min 08/14/2024 Blood pressure diastolic 68 mm Hg 11/21/2024 Height 6ft in 11/21/2024 Blood pressure systolic 110 mm Hg 11/21/2024 Weight 175 lbs 11/21/2024 BMI 23.73 kg/m2 11/21/2024 Encounters Encounter Location Date Provider Diagnosis [address] [address] 02/07/2024 Megan Perica Tinea unguium B35.1 ; Unsteady gait R26.81 ; Neuropathy G62.9 ; Pain in toe of left foot M79.675 and Pain in toe of right foot M79.[address] [address] 05/15/2024 Megan Perica Tinea unguium B35.1 ; Neuropathy G62.9 ; Pain in toe of left foot M79.675 and Pain in toe of right foot M79.[address] [address] 08/14/2024 Megan Perica Tinea unguium B35.1 ; Neuropathy G62.9 ; Pain in toe of left foot M79.675 and Pain in toe of right foot M79.[address] [address] 11/21/2024 Megan Perica Tinea unguium B35.1 ; Pain in toe of left foot M79.675 and Pain in toe of right foot M79.674 Assessments Encounter Date Diagnosis (ICD Code) Assessment Notes Treatment Notes Treatment Clinical Notes Section Notes 02/07/2024 Tinea unguium (ICD-10 - B35.1) 02/07/2024 Unsteady gait (ICD-10 - R26.81) 05/15/2024 Tinea unguium (ICD-10 - B35.1) 05/15/2024 Neuropathy (ICD-10 - G62.9) 08/14/2024 Tinea unguium (ICD-10 - B35.1) 11/21/2024 Tinea unguium (ICD-10 - B35.1) 11/21/2024 Pain in toe of left foot (ICD-10 - M79.675) 11/21/2024 Pain in toe of right foot (ICD-10 - M79.674) 08/14/2024 Neuropathy (ICD-10 - G62.9) 05/15/2024 Pain in toe of left foot (ICD-10 - M79.675) 02/07/2024 Neuropathy (ICD-10 - G62.9) 02/07/2024 Pain [...] Treatment Next Appt Details Provider Name:Megan san, 02/20/2025 10:00:00 AM, [address] [place] [address], [phone], Insurance Providers Payer Name Payer Address Payer Phone Subscriber Number Group Number Insured Name Patient Relationship to Insured Coverage Start Date Coverage End Date Medicare National [employer] [address] [place] [address] [id number] Aneudy Smiley Self - patient is the insured [facility] [address] [place] [address] [id number] Aneudy Smiley Self - patient is the insured Medical (General) History Medical History History ICD Code Joint implants/screws severe spinal myelopathy/stenosis Surgical History Surgery Date(Month/Year) herniated disc- spinal stenosis surgery 03/2020 herniated disc 09/2020 Hospitalization History Reason Date(Month/Year) [facility] [place] 07/[place]22
[2024-12-12 11:46] LABS: PSA,Total (Free>4and<10) 2.48 ng/mL (0.00-4.00)
== END 2024-12-12 09:14 | disposition home or self-care (01) ==
LOC: HO.HMGCLDS 09:13
PROVIDERS: PCP Internal Medicine; Visit Provider Internal Medicine
DX: R35.1 Nocturia (principal)
CPT/HCPCS: 36415; 84153

== ENCOUNTER 2025-01-02 12:25 | Outpatient (AMB) | payer MEDICARE, BC, SELFPAY ==
[2025-01-02 12:58] VITALS: BMI 23.7
--- NOTE | 2025-01-02 12:58 | MHC.OFFVIS ---
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 States his middle finger is bent and is farida inward towards his palm. This started about 4-5 months ago and has not improved. Reports this causes him no pain just discomfort. Denies numbness or tingling. States he was told this could also be trigger finger and would like to discuss what can help straighten out his middle finger. No injury he can recall. Allergies No Known Drug Allergies Allergy (Unknown, Verified 01/02/25 13:07) Unknown HPI HPI New Prob: Left hand Dupuytren contracture: Details: Aneudy is a 74 year old left hand dominant man who return with complaints of a left middle finger contracture. He complains of ~4 months of his left middle finger farida towards his palm. He says he had some locking of his middle finger and he now is not able to fully straighten it or place it flat on a surface. He says he wakes up with his finger locked at times. He says his PCP called it either Dupuytrens contracture or a possible trigger finger. He denies any pain but says this is uncomfortable for him. He denies any numbness or tingling. He denies any prior treatment options. 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 He reports difficulty with using stairs. He has a gait disorder and is starting PT in [place] soon for this. He walks with a cane. He has a Hx of a left carpal tunnel release, DOS: 08/29/23, with good resolution of his symptoms [facility] Medical History (Updated 01/02/25 @ 13:44 by Raj Sanchez) Cervical myelopathy Movement disorder Depression Surgical History Previous back surgery History of tonsillectomy Family History Mother No problems noted. Father No problems noted. 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 Cognitive needs: Yes (cane) Hearing needs: No Vision needs: Yes (reading glasses) Review of Systems Const All systems reviewed & are unremarkable except as noted in HPI and below Physical Exam Vital Signs: BMI result Body Mass Index 23.7 Const General: no acute distress and alert Orientation/consciousness: patient oriented x3 Neuro General: patient oriented x3 Extrem Other: Evaluation of Left Upper Extremity: The patient is alert, oriented, and in no acute distress Neuro: Median, Ulnar, Radial nerves motor and sensory intact and sensation is normal to the tips of all digits Vascular: Cap refill brisk ROM: He can bring his fingers closed to a fist He can bring his fingers into full extension, except for his middle finger He has a flexion contracture of his middle finger PIP joint of ~90 degrees. We worked on ROM exercises today in clinic for >15 minutes and before leaving clinic this improved to ~30 degrees Tender over the middle finger A1 kait with some mild swelling in this area After working on these exercises, he had visible & palpable locking & catching of the middle finger Psych Appearance: grossly normal Affect: normal affect Attitude: cooperative Office Procedures AMB Fracture Care Details: No fracture, injection 19601, and manual therapy greater than 15 minutes 83204 Fracture Billing Code: Fracture Billing Code Assessment & Plan Assessment & Plan (1) Trigger middle finger of left hand: Code(s): M65.332 - Trigger finger, left middle finger Category: Medical (2) 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 Left middle finger trigger finger I educated him about these conditions I discussed operative and non-operative treatment options I recommend activity modification & a steroid injection, and he is in agreement We worked on ROM exercises for 15+ minutes today in clinic I discussed activity modification, he should work on ROM exercises 20x daily with a focus on extension I ordered OT hand therapy to work on ROM & stretching exercises Injection #1: The risks and benefits of a steroid injection including but not limited to risk of damage to blood vessels, nerves, tendons, infection, skin bleaching, failure to improve symptoms, increased pain, and possible need for further injections or other intervention were discussed with the patient and the patient wishes to proceed with the steroid injection. Once consent was obtained, I sterilely prepped the area over the A1 kait of the flexor tendon sheath of the Left middle finger. I then injected the flexor tendon sheath with a combination of 1 mL of dexamethasone (4mg/ml), and 1% lidocaine. The patient tolerated the procedure well with no complications. He will follow up in 4 weeks for a ROM check & to see how he is doing. If his contracture has improved but he continues to have locking & catching we may consider a trigger release, no sooner than 2 months from today 3. Left carpal tunnel syndrome, S/P release DOS: 08/29/23 Pre-operatively with dense numbness & early thenar atrophy Now with more normal sensation to the tips of all digits & good relief of his nighttime symptoms Doing well, no complaints Please note that greater than 40 minutes was spent with this patient going over the history, evaluating the patient and radiographs, formulating possible treatment options, discussing them with the patient, and documenting the visit. Scribed for Keshia Domingo MD by Raj Sanchez, medical payment poster, on 01/02/25 at 1:25 PM, EST. 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
--- OUTSIDE RECORDS SUMMARY | 2025-01-02 12:58 | XMS_ITS | Patient Health Record ---
Author Organization [facility] Address [address] [facility] [address] Care Team Providers Care General Intern Name Role Phone Brennan Sylvester Primary Care Provider Megan Fields Unavailable [phone] Allergies No Known Allergies Reason For Referral [...] Status W/U Status Risk Notes Problem Neuropathy (270559301) Neuropathy (G62.9) Active confirmed Problem Unsteady gait (R26.81) Active confirmed Vital Signs Heart Rate 59 /min 08/14/2024 Blood pressure diastolic 68 mm Hg 11/21/2024 Height 6ft in 11/21/2024 Blood pressure systolic 110 mm Hg 11/21/2024 Weight 175 lbs 11/21/2024 BMI 23.73 kg/m2 11/21/2024 Encounters Encounter Location Date Provider Diagnosis [address] [address] 02/07/2024 Megan Perica Tinea unguium B35.1 ; Unsteady gait R26.81 ; Neuropathy G62.9 ; Pain in toe of left foot M79.675 and Pain in toe of right foot M79.[address] [address] 05/15/2024 Megan Perica Tinea unguium B35.1 ; Neuropathy G62.9 ; Pain in toe of left foot M79.675 and Pain in toe of right foot M79.[address] [address] 08/14/2024 Megan Perica Tinea unguium B35.1 ; Neuropathy G62.9 ; Pain in toe of left foot M79.675 and Pain in toe of right foot M79.[address] [address] 11/21/2024 Megan Perica Tinea unguium B35.1 ; [...] Details Provider Name:Megan san, 02/20/2025 10:00:00 AM, [address] [place] [address], [phone], Insurance Providers Payer Name Payer Address Payer Phone Subscriber Number Group Number Insured Name Patient Relationship to Insured Coverage Start Date Coverage End Date Medicare National Govt [employer] [address] [facility] [address] [id number] nAeudy Smiley Self - patient is the insured [facility] [address] [place] [address] [id number] Aneudy Smiley Self - patient is the insured Medical (General) History Medical History History ICD Code Joint implants/screws severe spinal myelopathy/stenosis Surgical History Surgery Date(Month/Year) herniated disc- spinal stenosis surgery 03/2020 herniated disc 09/2020 Hospitalization History Reason Date(Month/Year[place] [facility] [place]
--- OUTSIDE RECORDS SUMMARY | 2025-01-02 12:58 | XMS_ITS | Clinical Summary ---
Author Organization [facility] [address] [facility] Address [address] [place] [address] Phone Care Team Providers Care Welding Inspector Name Role Phone Lawrence Santoyo MD Primary Care Provider [phone] Encounters Date Type Department Care Team Description 11/20/2024 7:19 AM EDT - 11/20/2024 11:59 PM EDT Hospital Encounter [facility] CT Scan [address] [place] [address] Encounter for screening for malignant neoplasm of respiratory organs; Personal history of nicotine dependence Discharge Disposition: Home or Self Care 10/26/2024 Telephone Lung Screening Program - [address] [place] [address] Ellie Dallas MA from Last 3 Months Surgical History Surgery Date Site/Laterality Comments OTHER SURGICAL HISTORY PROCEDURE: [place] ARTHRD ANT INTERBODY DECOMPRESS CERVICAL BELW C2; COMMENT: Cervical Disc Surgery Dr.. Feliz OTHER SURGICAL HISTORY PROCEDURE: [place] ARTHRD ANT INTERBODY DECOMPRESS CERVICAL BELW C2; COMMENT: Cervical Discectomy, Fusion C4-C5 10/30/19 Dr. Cheney OTHER SURGICAL HISTORY PROCEDURE: [place] BARFIELD FACETECTOMY & FORAMOTOMY 1 VRT SGM [...] V28) DX:COPD (chronic o bstructive pulmonary disease) ([facility]) Smoking DX:Smoking Venous insufficiency DX:Venous i nsufficiency [...] Signed Date: 11/22/2024 14:46 ET Workstation ID: [id number] Transcribed By: Self Edit Transcribed Date: 11/22/2024 [...] Signed Date: 11/22/2024 14:46 ET Workstation ID: [id number] Transcribed By: Self Edit Transcribed Date: 11/22/2024 14:41 ET us Rani Rodriguez MD IMG CT PROCEDURES Final Result from Last 3 Months Insurance MEDICARE [facility] Member Subscriber Plan / Payer (Ef fective 2024-Present) Name:RAY CRUMP Relation to Subscriber:Self Name:Ray Crump Payer ID:[id number] Group ID:[id number] Type:Not on file Address: [address] [place] [address] Care Teams Welding Inspector Relationship Specialty Start Date End Date Lawrence Santoyo MD [address] [place] [phone] PCP - General Internal Medicine 07/09/19
--- OUTSIDE RECORDS SUMMARY | 2025-01-02 12:58 | XMS_ITS | Encounter Summary ---
Author Organization [facility] Address [address] [facility] [address] [place] [address] Phone Care Team Providers Care Shoe Stitcher Odd Name Role Phone Lawrence Santoyo MD Primary Care Provider + Reason for Referral * Consultation (Elective) - Closed Specialty Diagnoses / Procedures Referred By Contac t Referred To Contact Neurology Diagnoses Abnormal MRI Apraxic gait Lawrence Santoyo MD Phone: tel: fax: [address] [address] Phone: tel: Referral ID Status Reason Start Date Expiration Date Visits Re quested Visits Authorized [id number] Closed 04/15/2020 04/15/2021 1 1 Encounter Details Date Type Department Care Team (Latest Contact Info) Description 04/15/2020 Transcribe Orders [facility] [place] [address] [facility], 8th [address], [address] [place] [address] Lawrence Santoyo MD [address] [place] [address] Abnormal MRI (Primary Dx); Apraxic gait Social [...] Associated Diagnoses Order Schedule Ambulatory referral [place] [facility] [place] Outpatient Referral Routine Abnormal MRI Apraxic gait Ordered: 04/15/2020 documented as of this encounter Visit Diagnoses Diagnosis Abnormal MRI- Primary Other nonspecific (abnormal) findings on radiological and other examinations of body structure Apraxic gait Other symbolic dysfunction documented in this encounter Care Teams Shoe Stitcher Odd Relationship Specialty Start Date End Date Lawrence Santoyo MD PCP - General Internal Medicine 02/15/20 documented as of this encounter Additional Source Comments The information contained in this document represents components of the legal health record. It is not the complete legal health record.[facility]
--- OUTSIDE RECORDS SUMMARY | 2025-01-02 12:58 | XMS_ITS | Clinical Summary ---
Author Organization [employer] [facility] Address [address] [place] [address] Care Team Providers Care Life Manager Name Role Phone Unavailable Primary Care [...] this topic Aneudy Smiley Personal/Family Self 1950 [address] [facility] [place] [address]
--- OUTSIDE RECORDS SUMMARY | 2025-01-02 12:58 | XMS_ITS | Clinical Summary ---
Author Organization [facility] Address [address] [place] [address] Phone Care Team Providers Care Inclinometer Tester Name Role Phone Lawrence Santoyo MD Primary Care Provider + Social History Tobacco Use Types Packs/Day Years Used Date Smoking Tobacco: Never Assessed Sex and Gender Information Value Date Recorded Sex Assigned at Male 02/15/2020 12:56 PM EDT Legal Sex Male 7:55 PM EST Gender Identity Male 02/15/2020 12:56 PM EDT Sexual Orientation Straight 02/15/2020 12 :56 PM EDT Plan of Treatment Not on file Medical Devices Not on file Insurance [facility] MEDICARE PART A & B [facility] MEDICARE PART A & B [facility] MEDICARE PART A & B [facility] MEDICARE PART A & B [facility] MEDICARE [facility] A & B [facility] MEDICARE [facility] A & B [facility] MEDICARE PART A & B [facility] MEDICARE PART A & B [facility] MEDICARE PART A & B Care Teams Inclinometer Tester Relationship Specialty Start Date End Date Lawrence Santoyo MD PCP - General Internal Medicine 02/15/20 Additional Source Comments The information contained in this document represents components of the legal health record. It is not the complete legal health record.[facility]
== END 2025-01-02 14:05 | disposition home or self-care (01) ==
LOC: HO.HOS 12:25
PROVIDERS: PCP Internal Medicine; Visit Provider Orthopaedic Surgery
DX: M65.332 Trigger finger, left middle finger (principal); M24.542 Contracture, left hand
CPT/HCPCS: 20550; 99214

== ENCOUNTER → 2025-01-02 12:25 | Outpatient (BNVA) | payer MEDICARE, BC, SELFPAY | PROVIDERS: PCP Internal Medicine; Visit Provider Orthopaedic Surgery | DX: M65.332 Trigger finger, left middle finger (principal); M24.542 Contracture, left hand | CPT/HCPCS: 20550; 99212; J1100; J2003 ==

== ENCOUNTER 2025-02-05 13:42 | Outpatient (AMB) | payer MEDICARE, BC, SELFPAY ==
--- OUTSIDE RECORDS SUMMARY | 2023-09-06 06:00 | XMS_ITS ---
Author Organization [facility], [place] Address [address] [facility] 1 [place] [address] Care Team Providers Care Minibus Driver Name Role Phone Migration, Provider Unavailable Unavailable REASON FOR VISIT CPX Encounters Encounter Location Date Provider Diagnosis [facility], [address] [place] [phone] 09/06/2023 Provider Migration Plan Of Treatment No Information Progress Notes * RAY CRUMPDOB: 3 (74 yo M)Acc No.[id number]:09/06/2023 Progress Notes Patient: RAY MUNOZ Provider: Tatiana Lambert :1950 A ge:72 Y S ex:Male Date:09/06/2023 Address:[address] [place], [place] [phone] Subjective: * Chief Complaints: * C PX * Ocular Surgical History: Objective: Vision Examination: * Electronic signature of Prov ider Migration on 02/05/2025 at 03:00 PM EDT Sign off status: Pending * Provider: Tatiana rene Migration Date: 09/06/2023 Generated for Dhaval garza/Mahnaz/eTmayrasmitting on: 0 02/05/2025 03:00 PM EDT
--- OUTSIDE RECORDS SUMMARY | 2023-11-29 12:00 | XMS_ITS ---
Author Organization [facility], [place] Address [address] [facility] 1 [place] [address] Care Team Providers Care Brush Maker Name Role Phone Migration, Provider Unavailable Unavailable REASON FOR VISIT Ear Lavage Encounters Encounter Location Date Provider Diagnosis [facility], [address] [place] [phone] 11/29/2023 Provider Migration Plan Of Treatment No Information Progress Notes * RAY CRUMPDOB: 3 (74 yo M)Acc No.[id number]:11/29/2023 Progress Notes Patient: RAY MUNOZ Provider: Tatiana Lambert :1950 A ge:73 Y S ex:Male Date:11/29/2023 Address:[address] [place], [place] [phone] Subjective: * Chief Complaints: * E ar Lavage * Ocular Surgical History: Objective: Vision Examination: * Electronic signature of Prov ider Migration on 02/05/2025 at 03:00 PM EDT Sign off status: Pending * Provider: Tatiana rene Migration Date: 11/29/2023 Generated for Dhaval garza/Mahnaz/eTransmitting on: 02/05/2025 03:00 PM EDT
--- OUTSIDE RECORDS SUMMARY | 2024-02-16 11:15 | XMS_ITS ---
Author Organization [facility], [place] Address [address] [facility] 1 [place] [address] Care Team Providers Care Hall Manager Name Role Phone Migration, Provider Unavailable Unavailable REASON FOR VISIT Follow-up Appt Encounters Encounter Location Date Provider Diagnosis [facility], [address] [place] [phone] 02/16/2024 Provider Migration Plan Of Treatment No Information Progress Notes * LAVON CRUMPALEKSEYDOB: 3 (74 yo M)Acc No.[id number]:02/16/2024 Progress Notes Patient: RAY MUNOZ Provider: Tatiana Lambert :1950 A ge:73 Y S ex:Male Date:02/16/2024 Address:[address] [place] [address] Subjective: * Chief Complaints: * F ollow-up Appt * Ocular Surgical History: Objective: Vision Examination: * Electronic signature of Prov ider Migration on 02/05/2025 at 03:00 PM EDT Sign off status: Pending * Provider: Tatiana rene Migration Date: 1 Generated for Dhaval garza/Mahnaz/eTransmitting on: 0 02/05/2025 03:00 PM EDT
--- OUTSIDE RECORDS SUMMARY | 2024-03-06 05:30 | XMS_ITS ---
Author Organization [facility], [place] Address [address] [facility] 1 [place] [address] Care Team Providers Care Corn Miller Name Role Phone Migration, Provider Unavailable Unavailable REASON FOR VISIT Follow-up Appt Encounters Encounter Location Date Provider Diagnosis [facility], [address] [place] [phone] 03/06/2024 Provider Migration Plan Of Treatment No Information Progress Notes * MITZILAVON HERRONALEKSEYDOB: 3 (74 yo M)Acc No.[id number]:03/06/2024 Progress Notes Patient: RAY MUNOZ Provider: Tatiana Lambert :1950 A ge:73 Y S ex:Male Date:03/06/2024 Address:[address] [place] [address] Subjective: * Chief Complaints: * F ollow-up Appt * Ocular Surgical History: Objective: Vision Examination: * Electronic signature of Prov ider Migration on 02/05/2025 at 03:00 PM EDT Sign off status: Pending * Provider: Tatiana rene Migration Date: 1 Generated for Dhaval garza/Mahnaz/eTransmitting on: 0 02/05/2025 03:00 PM EDT
--- OUTSIDE RECORDS SUMMARY | 2024-08-28 06:30 | XMS_ITS ---
Author Organization [facility], [place] Address [address] [facility] 1 [place] [address] Care Team Providers Care Transformation Consultant Name Role Phone Migration, Provider Unavailable Unavailable REASON FOR VISIT CPX Encounters Encounter Location Date Provider Diagnosis [facility], [address] [place] [phone] 08/28/2024 Provider Migration Plan Of Treatment No Information Progress Notes * RAY CRUMPDOB: 3 (74 yo M)Acc No.[id number]:08/28/2024 Progress Notes Patient: RAY MUNOZ Provider: Tatiana Lambert :1950 A ge:73 Y S ex:Male Date:08/28/2024 Address:[address] [place] [phone] Subjective: * Chief Complaints: * C PX * Ocular Surgical History: Objective: Vision Examination: * Electronic signature of Prov ider Migration on 02/05/2025 at 03:00 PM EDT Sign off status: Pending * Provider: Tatiana rene Migration Date: 08/28/2024 Generated for Dhaval garza/Mahnaz/eTmayrasmitting on: 0 02/05/2025 03:00 PM EDT
--- NOTE | 2025-02-05 13:50 | MHC.OFFVIS ---
Vital Signs 02/05/25 14:06 Height 6 ft Weight 175 lb BMI 23.7 Intake Visit Reasons: OV - Left Middle Trigger Finger - Last Inj 01/02/25 Intake Note: Aneudy is a 74 year old left hand dominant male who presents today for a follow up of his Left Middle Trigger finger. At his last visit on 01/02/25 the left middle finger was injected and he was instructed to continue ROM exercises at home. Today patient reports continues to have locking and catching with no change. States too painful with ROM exercises. He would like to discuss surgical vs non-surgical options. Allergies No Known Drug Allergies Allergy (Unknown, Verified 02/05/25 14:06) Unknown HPI HPI OV - Left Middle Trigger Finger - Last Inj 01/02/25: Details: Aneudy is a 74 year old left hand dominant man who returns for his left middle finger contracture & trigger finger, S/P injection on 01/02/25. He complains of ~5 months of his left middle finger farida towards his palm. He says he originally had some locking of his middle finger which then also developed into not being able to fully straighten it or place it flat on a surface. He says he wakes up with his finger locked in flexion at times. He says the injection was not helpful . He denies any numbness or tingling. He denies any prior treatment options. 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 He reports difficulty with using stairs. He has a gait disorder and is starting PT in [place] soon for this. He walks with a cane. He has a Hx of a left carpal tunnel release, DOS: 08/29/23, with good resolution of his symptoms [facility] Medical History (Updated 01/02/25 @ 13:44 by Raj Sanchez) Cervical myelopathy Movement disorder Depression Surgical History Previous back surgery History of tonsillectomy Family History Mother No problems noted. Father No problems noted. 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 Cognitive needs: Yes (cane) Hearing needs: No Vision needs: Yes (reading glasses) Physical Exam Vital Signs: BMI result Body Mass Index 23.7 Const General: no acute distress and alert Orientation/consciousness: patient oriented x3 Neuro General: patient oriented x3 Extrem Other: Evaluation of Left Upper Extremity: The patient is alert, oriented, and in no acute distress Neuro: Median, Ulnar, Radial nerves motor and sensory intact and sensation is normal to the tips of all digits Vascular: Cap refill brisk ROM: He can bring his fingers closed to a fist He can bring his fingers into full extension, except for his middle finger He has a flexion contracture of his middle finger PIP joint of ~45 degrees, this could be passively brought to ~25-30 degrees Tender over the middle finger A1 kait with some mild swelling in this area After working on these exercises, he had visible & palpable locking & catching of the middle finger Psych Appearance: grossly normal Affect: normal affect Attitude: cooperative Assessment & Plan Assessment & Plan (1) Trigger middle finger of left hand: Code(s): M65.332 - Trigger finger, left middle finger Category: Medical (2) 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 Left middle finger trigger finger, S/P injection Date of injection: 01/02/25 I educated him about these conditions I discussed operative and non-operative treatment options I recommend surgery, and he is in agreement I discussed activity modification, he should work on ROM exercises 20x daily with a focus on extension I ordered OT hand therapy to work on ROM & stretching exercises The risks and benefits of operative treatment were discussed with the patient and the patient wishes to proceed with surgery. These risks include, but are not limited to risk of damage to blood vessels, nerves, tendons, infection, recurrence, incomplete relief of preoperative symptoms, persistent pain, possible need for further surgery and the risks associated with regional blocks and anesthesia. The plan is to take the patient to the operating room sometime in the next few weeks for the following procedures: 1. Left middle finger trigger release, under local 2. Left middle finger closed manipulation, under local All of the preoperative paperwork including the consent was reviewed today. All the patient's questions were answered. The patient understands that they will be contacted by our rn surgery icu soon to schedule this procedure He denies Diabetes, blood thinners, asthma, heart, lung, kidney issues 3. Left carpal tunnel syndrome, S/P release DOS: 08/29/23 Pre-operatively with dense numbness & early thenar atrophy Now with more normal sensation to the tips of all digits & good relief of his nighttime symptoms Doing well, no complaints Scribed for Keshia Domingo MD by Raj Sanchez, medical director occupational health, on 01/02/25 at 1:25 PM, EST. 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
[2025-02-05 14:06] VITALS: BMI 23.7
--- OUTSIDE RECORDS SUMMARY | 2025-02-05 15:00 | XMS_ITS | Clinical Summary ---
Author Organization [facility] [address] [facility] Address [address] [place] [address] Phone Care Team Providers Care Technical Account Representative Name Role Phone Lawrence Santoyo MD Primary Care Provider [phone] Encounters Date Type Department Care Team Description 11/20/2024 7:19 AM EDT - 11/20/2024 11:59 PM EDT Hospital Encounter [facility] CT Scan [address] [place] [address] Encounter for screening for malignant neoplasm of respiratory organs; Personal history of nicotine dependence Discharge Disposition: Home or Self Care from Last 3 Months Surgical History Surgery [...] DX:Spinal stenosis of lumbar region Bipolar disorder ([facility] V2 4, [facility] V28) DX:Bipolar disorder ([facility]) COPD (chronic obstructive pu lmonary disease) (CMS/HCC V24, CMS/[facility] V28) DX:COPD (chronic o bstructive pulmonary disease) ([facility]) Smoking DX:Smoking Venous insufficiency DX:Venous i nsufficiency [...] 04/10/2022 Medicare Annual Wellness Visit 02/24/2023 02/24/2022 Depression Screening 05/09/2024 COVID-19 Vaccine ( season) 2025 02/10/2023, 03/04/2021, 06/25/2020, Additional history exists Influenza Vaccine (#1) 2025 , 02/24/2022, 03/03/2021, [...] Signed Date: 11/22/2024 14:46 ET Workstation ID: [id number] Transcribed By: Self Edit Transcribed Date: 11/22/2024 [...] Signed Date: 11/22/2024 14:46 ET Workstation ID: [id number] Transcribed By: Self Edit Transcribed Date: 11/22/2024 14:41 ET Rani Rodriguez MD IM CT PROCEDURES Final Result from Last 3 Months Insurance MEDICARE [facility] Member Subscriber Plan / Payer ( fective 2024-Present) Name:RAY CRUMP Relation to Subscriber:Self Name:Ray Crump Payer ID:[id number] Group ID:[id number] Type:Not on file Address: [address] [place] [address] Care Teams Technical Account Representative Relationship Specialty Start Date End Date Lawrence Santoyo MD [address] [place] [phone] PCP - General Internal Medicine 07/09/19
--- OUTSIDE RECORDS SUMMARY | 2025-02-05 15:00 | XMS_ITS | Patient Health Record ---
Author Organization [facility] [place] Address [address] [place] [address] Care Team Providers Care Director Of Business Continuity Name Role Phone Orlando Esteves Unavailable [phone] Migration, Provider Unavailable Unavailable Reason For Referral No Information Encounters Encounter Location Date Provider Diagnosis [facility] [address] [address] 02/16/2024 Provider Migration [address] [address] 03/06/2024 Provider Migration [address] [address] 08/28/2024 Provider Migration Plan Of Treatment No Information Insurance Providers Payer Name Payer Address Payer Phone Subscriber Number Group Number Insured Name Patient Relationship to Insured Coverage Start Date Coverage End Date A [employer] [address] [place] [address] [id number] RAY CRUMP Self - patient is the insured [facility] [address] [place] [address] [id number] MITZILAVON HERRONMOND Self - patient is the insured
--- OUTSIDE RECORDS SUMMARY | 2025-02-05 15:00 | XMS_ITS | Clinical Summary ---
Author Organization [facility] Address [address] [place] [address] Care Team Providers Care Solar System Designer Name Role Phone Unavailable Primary Care Provider [...] this topic Aneudy Smiley Personal/Family Self [address] [place] [address]
--- OUTSIDE RECORDS SUMMARY | 2025-02-05 15:01 | XMS_ITS | Encounter Summary ---
Author Organization [facility] Address [address] [place] [address] Phone Care Team Providers Care Cotton Agent Name Role Phone Lawrence Santoyo MD Primary Care Provider + Reason for Referral * Consultation (Elective) - Closed Specialty Diagnoses / Procedures Referred By Contac t Referred To Contact Neurology Diagnoses Abnormal MRI Apraxic gait Lawrence Santoyo MD Phone: tel: fax: [address] [address] Phone: tel: Referral ID Status Reason Start Date Expiration Date Visits Re quested Visits Authorized [id number] Closed 04/15/2020 04/15/2021 1 1 Encounter Details Date Type Department Care Team (Latest Contact Info) Description 04/15/2020 Transcribe Orders [facility] Department of Neurology [address]th [address], [address] [place] [address] Lawrence Santoyo MD [address] [place] [id number] Abnormal MRI (Primary Dx); Apraxic gait Social [...] Associated Diagnoses Order Schedule Ambulatory referral to [facility] Neurology Outpatient Referral Routine Abnormal MRI Apraxic gait Ordered: 04/15/2020 documented as of this encounter Visit Diagnoses Diagnosis Abnormal MRI- Primary Other nonspecific (abnormal) findings on radiological and other examinations of body structure Apraxic gait Other symbolic dysfunction documented in this encounter Care Teams Cotton Agent Relationship Specialty Start Date End Date Lawrence Santoyo MD PCP - General Internal Medicine 02/15/20 documented as of this encounter Additional Source Comments The information contained in this document represents components of the legal health record. It is not the complete legal health record.[facility]
--- OUTSIDE RECORDS SUMMARY | 2025-02-05 15:01 | XMS_ITS | Clinical Summary ---
Author Organization [facility] Address [address] [place] [id number] Phone Care Team Providers Care Enforcement Officer Name Role Phone Lawrence Santoyo MD Primary [...] file Medical Devices Not on file Insurance [facility] MEDICARE PART A & B [facility] MEDICARE PART A & B [facility] MEDICARE PART A & B [place] Informed Trades [facility] MEDICARE PART A & B [facility] MEDICARE PART A & B [facility] MEDICARE PART A & B [facility] MEDICARE PART A & B [facility] MEDICARE PART A & B [facility] MEDICARE PART A & B Care Teams Enforcement Officer Relationship Specialty Start Date End Date Lawrence Santoyo MD PCP - General Internal Medicine 02/15/20 Additional Source Comments The information contained in this document represents components of the legal health record. It is not the complete legal health record.[facility]
--- OUTSIDE RECORDS SUMMARY | 2025-02-05 15:01 | XMS_ITS | Patient Health Record ---
Author Organization [facility] Address [address] [place] [address] Care Team Providers Care Farm Loan Representative Name Role Phone Brennan Sylvester Primary Care Provider [phone] Megan Fields Unavailable [phone] Allergies No Known Allergies Reason For Referral [...] Status W/U Status Risk Notes Problem Neuropathy (332510778) Neuropathy (G62.9) Active confirmed Problem Unsteady gait (53375409) Unsteady gait (R26.81) Active confirmed Vital Signs Heart Rate 59 /min 08/14/2024 Blood pressure diastolic 68 mm Hg 11/21/2024 Height 6ft in 11/21/2024 Blood pressure systolic 110 mm Hg 11/21/2024 Weight 175 lbs 11/21/2024 BMI 23.73 kg/m2 11/21/2024 Encounters Encounter Location Date Provider Diagnosis [address] [address] 02/07/2024 Megan Perica Tinea unguium B35.1 ; Unsteady gait R26.81 ; Neuropathy G62.9 ; Pain in toe of left foot M79.675 and Pain in toe of right foot M79.[address] [address] 05/15/2024 Megan Perica Tinea unguium B35.1 ; Neuropathy G62.9 ; Pain in toe of left foot M79.675 and Pain in toe of right foot M79.[address] [address] 08/14/2024 Megan Perica Tinea unguium B35.1 ; Neuropathy G62.9 ; Pain in toe of left foot M79.675 and Pain in toe of right foot M79.[address] [address] 11/21/2024 Megan Perica Tinea unguium B35.1 ; [...] Details Provider Name:Megan san, 02/20/2025 10:00:00 AM, [address] [place] [address], [phone], Insurance Providers Payer Name Payer Address Payer Phone Subscriber Number Group Number Insured Name Patient Relationship to Insured Coverage Start Date Coverage End Date Medicare [employer] [address] [place] [address] [id number] Aneudy Smiley Self - patient is the insured [facility] [address] [place] [address] [id number] Aneudy Smiley Self - patient is the insured Medical (General) History Medical History History ICD Code Joint implants/screws severe spinal myelopathy/stenosis Surgical History Surgery Date(Month/Year) herniated disc- spinal stenosis surgery 03/2020 herniated disc 09/2020 Hospitalization History Reason Date(Month/Year) [facility]- UTI -Sepsis 07/2022
--- OUTSIDE RECORDS SUMMARY | 2025-02-05 15:01 | XMS_ITS ---
Author Name [facility] Organization Unknown Encounters Encounter Type Encounter Reason Primary Diagnosis Location Date Ambulatory Replaced by [facility] 03/06/2024 Care Team Organization Name Specialty Phone Email Start Date End Da te [facility] [id number] [facility] 11/24/2023 01/16/20 [facility] 03/16/2022 01/16/20
== END 2025-02-05 15:04 | disposition home or self-care (01) ==
LOC: HO.HOS 13:43
PROVIDERS: PCP Internal Medicine; Visit Provider Orthopaedic Surgery
DX: M65.332 Trigger finger, left middle finger (principal); M24.542 Contracture, left hand
CPT/HCPCS: 99214

== ENCOUNTER → 2025-02-05 13:42 | Outpatient (BNVA) | payer MEDICARE, BC, SELFPAY | PROVIDERS: PCP Internal Medicine; Visit Provider Orthopaedic Surgery | DX: M65.332 Trigger finger, left middle finger (principal); M24.542 Contracture, left hand | CPT/HCPCS: 99212 ==

== ENCOUNTER 2025-02-26 09:57 | Outpatient (AMB) | payer MEDICARE, BC, SELFPAY ==
--- OUTSIDE RECORDS SUMMARY | 2023-09-06 06:00 | XMS_ITS ---
Author Organization [facility], [place] Address [address] [facility] 1 [place] [address] Care Team Providers Care Pvc Loader Name Role Phone Migration, Provider Unavailable Unavailable REASON FOR VISIT CPX Encounters Encounter Location Date Provider Diagnosis [facility], [address] [place] [phone] 09/06/2023 Provider Migration Plan Of Treatment No Information Progress Notes * RAY CRUMPDOB: 3 (74 yo M)Acc No.[id number]:09/06/2023 Progress Notes Patient: RAY MUNOZ Provider: Tatiana Lambert :1950 A ge:72 Y S ex:Male Date:09/06/2023 Address:[address] [place], [place] [phone] Subjective: * Chief Complaints: * C PX * Ocular Surgical History: Objective: Vision Examination: * Electronic signature of Prov ider Migration on 02/26/2025 at 11:28 AM EDT Sign off status: Pending * Provider: Tatiana rene Migration Date: 0 09/06/2023 Generated for Dhaval garza/Mahnaz/eTmayrasmitting on: 1 11:28 AM EDT
--- OUTSIDE RECORDS SUMMARY | 2023-11-29 12:00 | XMS_ITS ---
Author Organization [facility], [place] Address [address] [facility] 1 [place] [address] Care Team Providers Care Residential Treatment Counselor Name Role Phone Migration, Provider Unavailable Unavailable REASON FOR VISIT Ear Lavage Encounters Encounter Location Date Provider Diagnosis [facility], [address] [place] [phone] 11/29/2023 Provider Migration Plan Of Treatment No Information Progress Notes * RAY CRUMPDOB: 3 (74 yo M)Acc No.[id number]:11/29/2023 Progress Notes Patient: RAY MUNOZ Provider: Tatiana Lambert :1950 A ge:73 Y S ex:Male Date:11/29/2023 Address:[address] [place], [place] [phone] Subjective: * Chief Complaints: * E ar Lavage * Ocular Surgical History: Objective: Vision Examination: * Electronic signature of Prov ider Migration on 02/26/2025 at 11:29 AM EDT Sign off status: Pending * Provider: Tatiana rene Migration Date: 0 11/29/2023 Generated for Dhaval garza/Mahnaz/eTransmitting on: 1 11:29 AM EDT
--- OUTSIDE RECORDS SUMMARY | 2024-02-16 11:15 | XMS_ITS ---
Author Organization [facility], [place] Address [address] [facility] 1 [place] [address] Care Team Providers Care Plastic Maker Name Role Phone Migration, Provider Unavailable Unavailable REASON FOR VISIT Follow-up Appt Encounters Encounter Location Date Provider Diagnosis [facility], [address] [place] [phone] 02/16/2024 Provider Migration Plan Of Treatment No Information Progress Notes * MITZILAVON HERRONALEKSEYDOB: 3 (74 yo M)Acc No.[id number]:02/16/2024 Progress Notes Patient: RAY MUNOZ Provider: Tatiana Lambert :1950 A ge:73 Y S ex:Male Date:02/16/2024 Address:[address] [place] [address] Subjective: * Chief Complaints: * F ollow-up Appt * Ocular Surgical History: Objective: Vision Examination: * Electronic signature of Prov ider Migration on 02/26/2025 at 11:29 AM EDT Sign off status: Pending * Provider: Tatiana rene Migration Date: Generated for Dhaval garza/Mahnaz/eTmayrasmitting on: 1 11:29 AM EDT
--- OUTSIDE RECORDS SUMMARY | 2024-03-06 05:30 | XMS_ITS ---
Author Organization [facility], [place] Address [address] [facility] 1 [place] [address] Care Team Providers Care Fourchette Sewer Name Role Phone Migration, Provider Unavailable Unavailable REASON FOR VISIT Follow-up Appt Encounters Encounter Location Date Provider Diagnosis [facility], [address] [place] [phone] 03/06/2024 Provider Migration Plan Of Treatment No Information Progress Notes * MITZILAVON HERRONALEKSEYDOB: 3 (74 yo M)Acc No.[id number]:03/06/2024 Progress Notes Patient: RAY MUNOZ Provider: Tatiana Lambert :1950 A ge:73 Y S ex:Male Date:03/06/2024 Address:[address] [place] [address] Subjective: * Chief Complaints: * F ollow-up Appt * Ocular Surgical History: Objective: Vision Examination: * Electronic signature of Prov ider Migration on 02/26/2025 at 11:29 AM EDT Sign off status: Pending * Provider: Tatiana rene Migration Date: Generated for Dhaval garza/Mahnaz/eTmayrasmitting on: 1 11:29 AM EDT
--- OUTSIDE RECORDS SUMMARY | 2024-08-28 06:30 | XMS_ITS ---
Author Organization [facility], [place] Address [address] [facility] 1 [place] [address] Care Team Providers Care Control Panel Tester Name Role Phone Migration, Provider Unavailable Unavailable REASON FOR VISIT CPX Encounters Encounter Location Date Provider Diagnosis [facility], [address] [place] [phone] 08/28/2024 Provider Migration Plan Of Treatment No Information Progress Notes * RAY CRUMPDOB: 3 (74 yo M)Acc No.[id number]:08/28/2024 Progress Notes Patient: RAY MUNOZ Provider: Tatiana Lambert :1950 A ge:73 Y S ex:Male Date:08/28/2024 Address:[address] [place], [place] [phone] Subjective: * Chief Complaints: * C PX * Ocular Surgical History: Objective: Vision Examination: * Electronic signature of Prov ider Migration on 02/26/2025 at 11:29 AM EDT Sign off status: Pending * Provider: Tatiana rene Migration Date: 0 08/28/2024 Generated for Dhaval garza/Mahnaz/eTmayrasmitting on: 1 11:29 AM EDT
[2025-02-26 10:15] VITALS: TEMP 36.5
--- NOTE | 2025-02-26 10:15 | AM.OFFVISNUR ---
Vital Signs 02/26/25 10:15 Temp 97.7 F Intake Visit Reasons: Flu vaccine Allergies No Known Drug Allergies Allergy (Unknown, Verified 02/05/25 14:06) Unknown Office Procedures Flu Questionnaire Does the patient have a severe egg allergy?: No Does the patient have severe life threatening allergies?: No Does the patient have a fever or illness today?: No Has the patient ever had Guillain-Buffalo Syndrome?: No Has the patient ever had any past reaction to a flu shot?: No Immunizations Fluarix [id number] (PF) 45 mcg (15 mcg x 3)/0.5 mL IM syringe Performing Provider: Brennan Sylvester MD [facility] Administered by: Lynn Ash CMA on 02/26/25 10:16 Dose Route Admin Location Dispensed Lot Number Expiration Date NDC Camp [employer] 0.5 mL IM Left Deltoid 0.5 mL [id number] 11/05/25 24746-026-02 [employer] VIS Given Date VIS Provided VIS Publication Date 02/26/25 Single Vaccine 24 Eligibility Eligibility Date Funding Source Not [place] Eligible 02/26/25 Private Assessment & Plan Assessment & Plan Orders: Orders Influenza [id number] Immunization Today Z23 - Encounter for immunization Coding
--- OUTSIDE RECORDS SUMMARY | 2025-02-26 11:29 | XMS_ITS | Encounter Summary ---
Author Organization [facility] Address [address] [place] [address] Phone Care Team Providers Care Hair Worker Name Role Phone Lawrence Santoyo MD Primary Care Provider + Reason for Referral * Consultation (Elective) - Closed Specialty Diagnoses / Procedures Referred By Contac t Referred To Contact Neurology Diagnoses Abnormal MRI Apraxic gait Lawrence Santoyo MD Phone: tel: fax: [address] [address] Phone: tel: Referral ID Status Reason Start Date Expiration Date Visits Re quested Visits Authorized [id number] Closed 04/15/2020 04/15/2021 1 1 Encounter Details Date Type Department Care Team (Latest Contact Info) Description 04/15/2020 Transcribe Orders [facility] Department of Neurology [address] [facility], 8th [address], [address] [place] [address] Lawrence Santoyo MD [address] [place] [id number] Abnormal MRI (Primary Dx); Apraxic gait Social [...] Associated Diagnoses Order Schedule Ambulatory referral to [facility] Neurology Outpatient Referral Routine Abnormal MRI Apraxic gait Ordered: 04/15/2020 documented as of this encounter Visit Diagnoses Diagnosis Abnormal MRI- Primary Other nonspecific (abnormal) findings on radiological and other examinations of body structure Apraxic gait Other symbolic dysfunction documented in this encounter Care Teams Hair Worker Relationship Specialty Start Date End Date Lawrence Santoyo MD PCP - General Internal Medicine 02/15/20 documented as of this encounter Additional Source Comments The information contained in this document represents components of the legal health record. It is not the complete legal health record.[facility]
--- OUTSIDE RECORDS SUMMARY | 2025-02-26 11:29 | XMS_ITS | Clinical Summary ---
Author Organization [facility] Address [address] [place] [address] Phone Care Team Providers Care Audio Visual Specialist Name Role Phone Lawrence Santoyo MD Primary [...] file Medical Devices Not on file Insurance [facility] MEDICARE PART A & B [facility] MEDICARE PART A & B [facility] MEDICARE PART A & B [place] [employer] [facility] MEDICARE PART A & B [facility] MEDICARE PART A & B [facility] MEDICARE PART A & B [facility] MEDICARE PART A & B [facility] MEDICARE PART A & B [facility] MEDICARE PART A & B Care Teams Audio Visual Specialist Relationship Specialty Start Date End Date Lawrence Santoyo MD PCP - General Internal Medicine 02/15/20 Additional Source Comments The information contained in this document represents components of the legal health record. It is not the complete legal health record.[facility]
--- OUTSIDE RECORDS SUMMARY | 2025-02-26 11:29 | XMS_ITS | Patient Health Record ---
Author Organization [facility] Address [address] [facility] [place] [address] Care Team Providers Care Investigative Agent Name Role Phone Brennan Sylvester Primary Care Provider Megan Fields Unavailable [phone] Allergies No Known Allergies Reason For Referral No Information Medications Medication SIG (Take, Route, Frequency, Duration) Notes Start Date End Date Status Baclofen Not-Taking PARoxetine HCl Not-T aking Physical Therapy . . . 2-3x/week; Durat ion: 3-4 weeks 02/07/2024 Not-Taking QUEtiapine Fumarate 25 MG 1 tablet at bedtime Orally Once a day Active buPROPion HCl Active Tamsulosin HCl 0.4 MG 1 capsule Orally O nce a day Active Immunizations Vaccine Route Administration Date Status [...] Status W/U Status Risk Notes Problem Neuropathy (873285691) Neuropathy (G62.9) Active confirmed Problem Unsteady gait (31243951) Unsteady gait (R26.81) Active confirmed Vital Signs Heart Rate 59 /min 08/14/2024 Blood pressure diastolic 80 mm Hg 02/20/2025 Height 6ft in 02/20/2025 Blood pressure systolic 120 mm Hg 02/20/2025 Weight 175 lbs 02/20/2025 BMI 23.73 kg/m2 02/20/2025 Encounters Encounter Location Date Provider Diagnosis [address] [address] 05/15/2024 Megan Perica Tinea unguium B35.1 ; Neuropathy G62.9 ; Pain in toe of left foot M79.675 and Pain in toe of right foot M79.[address] [address] 08/14/2024 Megan Perica Tinea unguium B35.1 ; Neuropathy G62.9 ; Pain in toe of left foot M79.675 and Pain in toe of right foot M79.[address] [address] 11/21/2024 Megan Perica Tinea unguium B35.1 ; Pain in toe of left foot M79.675 and Pain in toe of right foot M79.[address] [address] 02/20/2025 Megan Perica Tinea unguium B35.1 ; Pain [...] toe of left foot (ICD-10 - M79.675) 02/20/2025 Tinea unguium (ICD-10 - B35.1) 02/20/2025 Pain in toe of left foot (ICD-10 - M79.675) 11/21/2024 Pain in toe of right foot (ICD-10 - M79.674) 08/14/2024 Neuropathy (ICD-10 - G62.9) 05/15/2024 Pain in toe of left foot (ICD-10 - M79.675) 05/15/2024 Pain in toe of right foot (ICD-10 - M79.674) 02/20/2025 Pain in toe of right foot (ICD-10 - M79.674) 08/14/2024 Pain in toe of left foot (ICD-10 - M79.675) 08/14/2024 Pain in toe of right foot (ICD-10 - M79.674) Plan Of Treatment Next Appt Details Provider Name:Megan san, 06/25/2025 09:00:00 AM, [address] [place], [address], Insurance Providers Payer Name Payer Address Payer Phone Subscriber Number Group Number Insured Name Patient Relationship to Insured Coverage Start Date Coverage End Date Medicare National Govt Svcs Inc [address] [facility] [place] [place] [address] [id number] Aneudy Smiley Self - patient is the insured [facility] [address] [place] [address] [id number] Aneudy Smiley Self - patient is the insured Medical (General) History Medical History History ICD Code Joint implants/screws severe spinal myelopathy/stenosis Surgical History Surgery Date(Month/Year) herniated disc- spinal stenosis surgery 03/2020 herniated disc 09/2020 Hospitalization History Reason Date(Month/Year) [facility]- UTI -Sepsis 07/2022
--- OUTSIDE RECORDS SUMMARY | 2025-02-26 11:29 | XMS_ITS | Clinical Summary ---
Author Organization [facility] Address [address] [place] [address] Care Team Providers Care Coiled Tubing Supervisor Name Role Phone Unavailable Primary Care Provider [...] this topic Aneudy Smiley Personal/Family Self 1950 [address] [facility] [place] [place] [address]
--- OUTSIDE RECORDS SUMMARY | 2025-02-26 11:29 | XMS_ITS | Patient Health Record ---
Author Organization [facility] [place] Address [address] [place] [address] Care Team Providers Care Bench Patternmaker Metal Name Role Phone Orlando Esteves Unavailable [phone] Migration, Provider Unavailable Unavailable Reason For Referral No Information Encounters Encounter Location Date Provider Diagnosis [facility] [place] [address] [address] 03/06/2024 Provider Migration [address] [address] 08/28/2024 Provider Migration Plan Of Treatment No Information Insurance Providers Payer Name Payer Address Payer Phone Subscriber Number Group Number Insured Name Patient Relationship to Insured Coverage Start Date Coverage End Date A [employer] [address] [place] [phone] [id number] ALISIA RAY Self - patient is the insured [facility] [address] [place] [address] [phone] [id number] RAY CRUMP Self - patient is the insured
== END 2025-02-26 10:17 | disposition home or self-care (01) ==
LOC: HO.HMCSH 09:58
PROVIDERS: PCP Internal Medicine
DX: Z23 Encounter for immunization (principal)

== ENCOUNTER → 2025-02-26 09:57 | Outpatient (BNVA) | payer MEDICARE, BC, SELFPAY | PROVIDERS: PCP Internal Medicine | DX: Z23 Encounter for immunization (principal) | CPT/HCPCS: 90471; 90656 ==

== ENCOUNTER 2025-03-14 07:00 | Outpatient (RCR) | payer MEDICARE, BC, SELFPAY ==
--- NOTE | 2025-01-15 09:02 | MHC.PT.EP ---
[facility] [place] [facility] [place] [facility] [address] Patti Brar [address] [phone] F: [phone] F: [phone] F: [phone] F: [phone] Physical Therapy Plan of Care Date of Evaluation: 01/15/25 Date of Surgery: Diagnosis: gait and balance. Assessment: Patient is a 74 year old R handed male who reports to physical therapy with a diagnosis of gait and balance, cervical myelopathy. 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 Past medical history includes multiple neck surgeries including fusion. Current impairments include pain, ROM, strength, posture, balance, gait mechanics, and functional mobility. Functional limitations include ability to walk, stand, transfer, negotiate stairs and be active in the community and at home. Pt is motivated and has good rehab potential to progress with skilled physical therapy towards prior level of function by addressing impairments and functional limitations and pursuing goals. Frequency and Duration: The patient will be seen 2x/week for 10 weeks Short Term Goals: I with HEP - 2 weeks Able to walk 5 minutes without rest - 3 weeks LE strength 4-/5 grossly - 5 weeks LEFS 28/80 - 5 weeks Pmo Manager Goals: LEFS 38/80 - 10 weeks Strength 4/5 grossly - 10 weeks SLB > 5 seconds - 10 weeks Able to walk 10 minutes without rest - 10 weeks Treatment Plan: Modalities to reduce pain, spasms and effusion. Manual therapy to restore motion and function. Therapeutic exercise to improve strength and flexibility. Neuromuscular re-education for posture and balance. Therapeutic activities to return to functional activities of daily living. Electronically signed by: Gildardo Cabrera PT Please sign and return to therapist. Thank you for your referral.
--- NOTE | 2025-02-21 07:58 | MHC.PT.RE ---
[facility] [place] [facility] [place] [facility] [place] [facility] [address] Patti Brar [address] [phone] F: [phone] F: [phone] F: [phone] F: [phone] Physical Therapy Re-evaluation Diagnosis: gait and balance. Date of Surgery: Date of Evaluation: 01/15/25 Treatments to Date: 9 Cancellations to Date: No Shows to Date: Subjective: pt notes feeling challenged and wanting to continue Pain Score: 0 Pain Location: Objective Measures: I with HEP Able to walk 4 minutes without rest LE strength 4-/5 grossly except knee, 3+ flex and ext LEFS 34/80 Assessment: 02/21/25: Pt is motivated and has been compliant throughout the course of skilled PT. He is I with HEP And maintains good rehab potential. He has appreciated slow progress with his strength, walking and function. He still has impairments including gait mechanics, safety, independence, balance, strength and functional mobility. He still has functional impairments including ambulating longer than 4 minutes, transfers, walking in the community, negotiating stairs and curbs, and maneuvering unpredictable environments. He would likely benefit from continued skilled PT 2x/week for the next 5 weeks to continue to pursue progress on impairments and functional limitations - expecting progress to continue in a slow/sustained manor due to the nature of his diagnosis. 02/14/25: pt has been motivated and likely appropriate to transtion to [facility] [place]. 02/12/25: pt has been feeling encouraged by response. proprioceptive deficiencies limit progress however. we will likely transition to HEP next visit. 02/07/25: pt has been feeling better overall with skilled PT. still with slow progress with activity tolerance. limited with proprioception. maintains good motivation. 01/31/25: pt limited by proprioception difficulties. no adverse reactions from program. fatigue noted. 01/29/25: pt progressing with balance and strength. reduced fatigue. good mechanics with hip strength. reduced recovery time needed. 01/24/25: pt has been feeling better overall with skilled PT. no adverse reactions. continue to progress as tolerated. 01/22/25: progressed with therex. no adverse reactions. continue to progress as tolerated. hep issued. ModA to correct EC on airex. Patient is a 74 year old R handed male who reports to physical therapy with a diagnosis of gait and balance, cervical myelopathy. 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 Past medical history includes multiple neck surgeries including fusion. Current impairments include pain, ROM, strength, posture, balance, gait mechanics, and functional mobility. Functional limitations include ability to walk, stand, transfer, negotiate stairs and be active in the community and at home. Pt is motivated and has good rehab potential to progress with skilled physical therapy towards prior level of function by addressing impairments and functional limitations and pursuing goals. Short Term Goals: I with HEP - 2 weeks Able to walk 5 minutes without rest - 3 weeks LE strength 4-/5 grossly - 5 weeks LEFS 28/80 - 5 weeks Plate Take Out Worker Goals: LEFS 38/80 - 10 weeks Strength 4/5 grossly - 10 weeks SLB > 5 seconds - 10 weeks Able to walk 10 minutes without rest - 10 weeks Frequency and Duration: The patient will be seen 2x/week for 5 more weeks. Treatment Plan: Therapeutic Exercise Dynamic Therapeutic Activities Neuromuscular Re-ed Manual Therapies Taping Gait Home Exercise Program Patient Education Hot or Cold Pack Reviewed/ Agreed with Student Documentation: Therapist: Electronically signed by: Gildardo Cabrera PT Please sign and return to therapist. Thank you for your referral.
--- NOTE | 2025-04-24 08:38 | MHC.PT.DC ---
[facility] [place] Office [place] [facility] [place] [facility] [address] Patti Brar [address] [phone] F: [phone] F: [phone] F: [phone] F: [phone] Physical Therapy Discharge Report Diagnosis: gait and balance. Date of Surgery: Date of Evaluation: 01/15/25 Date of Discharge: 03/14/25 Treatments to Date: 11 Cancellations to Date: No Shows to Date: Discharge Status: Independent with HEP Patient Elected to Stop Recommend MD Follow-up Discharge Summary: Pt underwent hand surgery and would like to hold PT at this time. He has been issued a comprehensive home program with which to independently self manage his symptoms, Electronically signed by: Marie Montenegro PT DPT Please sign and return to therapist. Thank you for your referral.
== END 2025-04-24 08:38 | disposition home or self-care (01) ==
LOC: HO.PTCHIC 07:00
PROVIDERS: PCP Internal Medicine; Visit Provider Psychiatry & Neurology Neurology
DX: G95.9 Disease of spinal cord, unspecified (principal)
CPT/HCPCS: 97110; 97112; 97163; 97164

== ENCOUNTER 2025-03-18 09:30 | Day surgery (SDC) | payer MEDICARE, BC, SELFPAY ==
--- OUTSIDE RECORDS SUMMARY | 2023-09-06 06:00 | XMS_ITS ---
Author Organization [facility], [place] Address [address] [facility] 1 [place] [address] Care Team Providers Care White Metal Corrosion Proofer Name Role Phone Migration, Provider Unavailable Unavailable REASON FOR VISIT CPX Encounters Encounter Location Date Provider Diagnosis [facility], [address] [place] [phone] 09/06/2023 Provider Migration Plan Of Treatment No Information Progress Notes * RAY CRUMPDOB: 3 (74 yo M)Acc No.[id number]:09/06/2023 Progress Notes Patient: RAY MUNOZ Provider: Tatiana Lambert :1950 A ge:72 Y S ex:Male Date:09/06/2023 Address:[address] [place], [place] [phone] Subjective: * Chief Complaints: * C PX * Ocular Surgical History: Objective: Vision Examination: * Electronic signature of Prov ider Migration on 02/12/2025 at 09:06 AM EDT Sign off status: Pending * Provider: Tatiana rene Migration Date: 0 09/06/2023 Generated for Dhaval garza/Mahnaz/eTmayrasmitting on: 1 09:06 AM EDT
--- OUTSIDE RECORDS SUMMARY | 2023-11-29 12:00 | XMS_ITS ---
Author Organization [facility], [place] Address [address] [facility] 1 [place] [address] Care Team Providers Care Leather Goods Sales Representative Name Role Phone Migration, Provider Unavailable Unavailable REASON FOR VISIT Ear Lavage Encounters Encounter Location Date Provider Diagnosis [facility], [address] [place] [phone] 11/29/2023 Provider Migration Plan Of Treatment No Information Progress Notes * RAY CRUMPDOB: 3 (74 yo M)Acc No.[id number]:11/29/2023 Progress Notes Patient: RAY MUNOZ Provider: Tatiana Lambert :1950 A ge:73 Y S ex:Male Date:11/29/2023 Address:[address] [place], [place] [phone] Subjective: * Chief Complaints: * E ar Lavage * Ocular Surgical History: Objective: Vision Examination: * Electronic signature of Prov ider Migration on 02/12/2025 at 09:06 AM EDT Sign off status: Pending * Provider: Tatiana rene Migration Date: 0 11/29/2023 Generated for Dhaval garza/Mahnaz/eTmayrasmitting on: 1 09:06 AM EDT
--- OUTSIDE RECORDS SUMMARY | 2024-02-16 11:15 | XMS_ITS ---
Author Organization [facility], [place] Address [address] [facility] 1 [place] [address] Care Team Providers Care Shrimp Boat Captain Name Role Phone Migration, Provider Unavailable Unavailable REASON FOR VISIT Follow-up Appt Encounters Encounter Location Date Provider Diagnosis [facility], [address] [place] [phone] 02/16/2024 Provider Migration Plan Of Treatment No Information Progress Notes * LAVON CRUMPALEKSEYDOB: 3 (74 yo M)Acc No.[id number]:02/16/2024 Progress Notes Patient: RAY MUNOZ Provider: Tatiana Lambert :1950 A ge:73 Y S ex:Male Date:02/16/2024 Address:[address] [place] [address] Subjective: * Chief Complaints: * F ollow-up Appt * Ocular Surgical History: Objective: Vision Examination: * Electronic signature of Prov ider Migration on 02/12/2025 at 09:06 AM EDT Sign off status: Pending * Provider: Tatiana rene Migration Date: 1 Generated for Dhaval garza/Mahnaz/eTmayrasmitting on: 1 09:06 AM EDT
--- OUTSIDE RECORDS SUMMARY | 2024-03-06 05:30 | XMS_ITS ---
Author Organization [facility], [place] Address [address] [facility] 1 [place] [address] Care Team Providers Care Screw Down Name Role Phone Migration, Provider Unavailable Unavailable REASON FOR VISIT Follow-up Appt Encounters Encounter Location Date Provider Diagnosis [facility], [address] [place] [phone] 03/06/2024 Provider Migration Plan Of Treatment No Information Progress Notes * MITZILAVON HERRONALEKSEYDOB: 3 (74 yo M)Acc No.[id number]:03/06/2024 Progress Notes Patient: RAY MUNOZ Provider: Tatiana Lambert :1950 A ge:73 Y S ex:Male Date:03/06/2024 Address:[address] [place] [address] Subjective: * Chief Complaints: * F ollow-up Appt * Ocular Surgical History: Objective: Vision Examination: * Electronic signature of Prov ider Migration on 02/12/2025 at 09:06 AM EDT Sign off status: Pending * Provider: Tatiana rene Migration Date: Generated for Dhaval agrza/Mahnaz/eTmayrasmitting on: 1 09:06 AM EDT
--- OUTSIDE RECORDS SUMMARY | 2024-08-28 06:30 | XMS_ITS ---
Author Organization [facility], [place] Address [address] [facility] 1 [place] [address] Care Team Providers Care Administrative Technician Name Role Phone Migration, Provider Unavailable Unavailable REASON FOR VISIT CPX Encounters Encounter Location Date Provider Diagnosis [facility], [address] [place] [phone] 08/28/2024 Provider Migration Plan Of Treatment No Information Progress Notes * RAY CRUMPDOB: 3 (74 yo M)Acc No.[id number]:08/28/2024 Progress Notes Patient: RAY MUNOZ Provider: Tatiana Lambert :1950 A ge:73 Y S ex:Male Date:08/28/2024 Address:[address] [place], [place] [phone] Subjective: * Chief Complaints: * C PX * Ocular Surgical History: Objective: Vision Examination: * Electronic signature of Prov ider Migration on 02/12/2025 at 09:06 AM EDT Sign off status: Pending * Provider: Tatiana rene Migration Date: 0 08/28/2024 Generated for Dhaval garza/Mahnaz/eTmayrasmitting on: 1 09:06 AM EDT
--- OUTSIDE RECORDS SUMMARY | 2025-02-12 09:06 | XMS_ITS | Patient Health Record ---
Author Organization [facility] [place] Address [address] [facility] [address] [address] [place] [address] Care Team Providers Care Admin Dir Name Role Phone Orlando Esteves Unavailable [phone] Migration, Provider Unavailable Unavailable Reason For Referral No Information Encounters Encounter Location Date Provider Diagnosis [facility] [address] [address] 02/16/2024 Provider Migration [address] [address] 03/06/2024 Provider Migration [address] [address] 08/28/2024 Provider Migration Plan Of Treatment No Information Insurance Providers Payer Name Payer Address Payer Phone Subscriber Number Group Number Insured Name Patient Relationship to Insured Coverage Start Date Coverage End Date [employer] [address] [place] [address] [id number] RAY CRUMP Self - patient is the insured [facility] [address] [place] [address] [phone] [id number] ALISIALAVONRAY Self - patient is the insured
--- OUTSIDE RECORDS SUMMARY | 2025-02-12 09:06 | XMS_ITS | Patient Health Record ---
Author Organization [facility] Address [address] [facility] [place] [address] Care Team Providers Care Registered Public Health Nurse Name Role Phone Brennan Sylvester Primary Care Provider Megan Fields Unavailable [phone] Allergies No Known Allergies Reason For Referral [...] Status W/U Status Risk Notes Problem Neuropathy (641802010) Neuropathy (G62.9) Active confirmed Problem Unsteady gait (21405230) Unsteady gait (R26.81) Active confirmed Vital Signs Heart Rate 59 /min 08/14/2024 Blood pressure diastolic 68 mm Hg 11/21/2024 Height 6ft in 11/21/2024 Blood pressure systolic 110 mm Hg 11/21/2024 Weight 175 lbs 11/21/2024 BMI 23.73 kg/m2 11/21/2024 Encounters Encounter Location Date Provider Diagnosis [address] [address] 05/15/2024 Megan Perica Tinea unguium B35.1 ; Neuropathy G62.9 ; Pain in toe of left foot M79.675 and Pain in toe of right foot M79.[address] [address] 08/14/2024 Megan Perica Tinea unguium B35.1 ; Neuropathy G62.9 ; Pain in toe of left foot M79.675 and Pain in toe of right foot M79.[address] [address] 11/21/2024 Megan Perica Tinea unguium B35.1 ; [...] Of Treatment Next Appt Details Provider Name:Megan Mcbride Les mena, 02/20/2025 10:00:00 AM, [address] [place], [address], Insurance Providers Payer Name Payer Address Payer Phone Subscriber Number Group Number Insured Name Patient Relationship to Insured Coverage Start Date Coverage End Date Medicare National [employer]t [employer] Inc [address] [facility] [place] [address] [id number] Aneudy Smiley Self - patient is the insured [facility] [address] [place] [address] [id number] Aneudy Smiley Self - patient is the insured Medical (General) History Medical History History ICD Code Joint implants/screws severe spinal myelopathy/stenosis Surgical History Surgery Date(Month/Year) herniated disc- spinal stenosis surgery 03/2020 herniated disc 09/2020 Hospitalization History Reason Date(Month/Year) [facility] UTI -Sepsis 07/2022
--- OUTSIDE RECORDS SUMMARY | 2025-02-12 09:06 | XMS_ITS | Clinical Summary ---
Author Organization [facility] Address [address] [place] [address] Care Team Providers Care Bottle Caser Name Role Phone Unavailable Primary Care Provider [...] this topic Aneudy Smiley Personal/Family Self 1950 [address] [facility] [place] [address]
--- OUTSIDE RECORDS SUMMARY | 2025-02-12 09:06 | XMS_ITS | Clinical Summary ---
Author Organization [facility] [address] [facility] Address [address] [place] [address] Phone Care Team Providers Care Rapid Transit Operator Name Role Phone Lawrence Santoyo MD Primary Care Provider [phone] Encounters Date Type Department Care Team Description 11/20/2024 7:19 AM EDT - 11/20/2024 11:59 PM EDT Hospital Encounter [facility] Scan [address] [place] [address] Encounter for screening for malignant [...] DX:Spinal stenosis of lumbar region Bipolar disorder ([facility] V2 4, [facility] V28) DX:Bipolar disorder ([facility]) COPD (chronic obstructive pu lmonary disease) ([facility] V24, [facility] V28) DX:COPD (chronic o bstructive pulmonary disease) ([facility]) Smoking DX:Smoking Venous insufficiency DX:Venous i nsufficiency [...] Health Maintenance Due Date Last Done Comments Colorectal Cancer Screening: Colonoscopy 1950 DTaP,Tdap,and Td Vaccines (1 - Tdap) 11/17/1971 Pneumococcal Vaccine: 50+ Years (1 of 1 - PCV) 2002 Zoster Vaccines (1 of 2) 2002 Abdominal Aortic Aneurysm (AAA) Screen 04/10/2022 Cholesterol Screening (Lipid Panel) 04/10/2022 Falls Risk Assessment 04/10/2022 Hepatitis C [...] Signed Date: 11/22/2024 14:46 ET Workstation ID: [id number] Transcribed By: Self Edit Transcribed Date: 11/22/2024 [...] Signed Date: 11/22/2024 14:46 ET Workstation ID: [id number] Transcribed By: Self Edit Transcribed Date: 11/22/2024 14:41 ET Rani Rodriguez MD IM CT PROCEDURES Final Result from Last 3 Months Insurance MEDICARE [facility] Member Subscriber Plan / Payer ( fective 2024-Present) Name:RAY CRUMP Relation to Subscriber:Self Name:Ray Crump Payer ID:[id number] Group ID:[id number] Type:Not on file Address: [address] [place] [address] Care Teams Rapid Transit Operator Relationship Specialty Start Date End Date Lawrence Santoyo MD [address] [place] [address] PCP - General Internal Medicine 07/09/19
--- OUTSIDE RECORDS SUMMARY | 2025-02-12 09:07 | XMS_ITS | Clinical Summary ---
Author Organization [facility] Address [address] [place] [address] Phone Care Team Providers Care Geophysical Laboratory Supervisor Name Role Phone Lawrence Santoyo MD Primary [...] Medical Devices Not on file Insurance [facility] MEDICARE PART A & B [facility] MEDICARE PART A & B [facility] MEDICARE PART A & B [employer] Guided Interventions [facility] MEDICARE PART A & B [facility] MEDICARE PART A & B [facility] MEDICARE PART A & B [facility] MEDICARE PART A & B [facility] MEDICARE PART A & B [facility] MEDICARE PART A & B Care Teams Geophysical Laboratory Supervisor Relationship Specialty Start Date End Date Lawrence Santoyo MD PCP - General Internal Medicine 02/15/20 Additional Source Comments The information contained in this document represents components of the legal health record. It is not the complete legal health record.[facility]
--- OUTSIDE RECORDS SUMMARY | 2025-02-12 09:07 | XMS_ITS | Encounter Summary ---
Author Organization [facility] Address [address] [place] [address] Phone Care Team Providers Care Judicial Clerk Name Role Phone Lawrence Santoyo MD Primary Care Provider + Reason for Referral * Consultation (Elective) - Closed Specialty Diagnoses / Procedures Referred By Contac t Referred To Contact Neurology Diagnoses Abnormal MRI Apraxic gait Lawrence Santoyo MD Phone: tel: fax: [address] [address] Phone: tel: Referral ID Status Reason Start Date Expiration Date Visits Re quested Visits Authorized [id number] Closed 04/15/2020 04/15/2021 1 1 Encounter Details Date Type Department Care Team (Latest Contact Info) Description 04/15/2020 Transcribe Orders [facility] Department of [place]rology [address] [facility] [facility], 8th Floor, [address] [place] [address] Lawrence Santoyo MD [address] [place] [address] Abnormal MRI (Primary Dx); Apraxic gait Social [...] Associated Diagnoses Order Schedule Ambulatory referral to [facility] [place] Outpatient Referral Routine Abnormal MRI Apraxic gait Ordered: 04/15/2020 documented as of this encounter Visit Diagnoses Diagnosis Abnormal MRI- Primary Other nonspecific (abnormal) findings on radiological and other examinations of body structure Apraxic gait Other symbolic dysfunction documented in this encounter Care Teams Judicial Clerk Relationship Specialty Start Date End Date Lawrence Santoyo MD PCP - General Internal Medicine 02/15/20 documented as of this encounter Additional Source Comments The information contained in this document represents components of the legal health record. It is not the complete legal health record.[facility]
--- NOTE | 2025-03-18 09:39 | P.OP_ITS ---
Operative Note Operative Note Date of Service: 03/18/25 Narrative: Operative Note Preop diagnosis: 1. Left middle finger Trigger finger 2. Left middle finger PIP flexion contracture Postop diagnosis: Same Procedure: 1. Left middle finger A1 kait release 2. Left middle finger PIP joint closed manipulation under anesthesia Surgeon: Keshia Domingo MD Wood Carving Lathe Operator: None Anesthesia: local block using 1% lidocaine with epinephrine Findings: No locking or catching after A1 kait release. I was able to passively bring the PIP joint of the middle finger out to full extension after our closed manipulation under anesthesia. EBL: Less than 5 mL Tourniquet time: None Specimens: None Complications: None Disposition: Brought to recovery room in stable condition Plan: Follow-up for 10-14 days for wound check and suture removal Indications: The patient is 74 years old, with a left middle finger trigger finger and PIP flexion contracture that have been unresponsive to nonoperative management. The risks and benefits of operative treatment includi ng but not limited to risk of damage to blood vessels, nerves, tendons, infection, persistent pain, persistent symptoms, recurrence or possible need for additional surgery were discussed with the patient and the patient wishes to proceed with surgery. Procedure: Once consent was obtained a local block was performed in the preop area using a combination of 1% lidocaine with epinephrine. The patient was then brought back to the operating suite and placed on the operative table in supine position. The left upper extremity was prepped and draped in a standard surgical fashion. Once assured that we had a good block, a 1.5 cm oblique incision was made centered over the A1 kait of the left middle finger . The incision was made through the skin to the subcutaneous tissues using a #15 blade. Careful dissection was made down to the level of the A1 kait using tenotomy scissors, with care being taken to protect the nearby neurovascular structures. A longitudinal incision was made in the A1 kait 1st using a #15 blade, then using tenotomy scissors under direct visualization. The A1 kait was noted to be thickened. Following our A1 kait release, we no longer saw any locking or catching of the digit with flexion and extension. I then performed a gentle closed manipulation of the left middle finger PIP joint bringing the extension from about 45 degrees from full extension to full extension. Once satisfied with our A1 kait release and manipulation of the PIP joint the wound was copiously irrigated with normal saline and hemostasis was obtained with a brief period of local pressure. The skin edges were reapproximated with some 5.0 nylon suture material and a sterile dressing was applied. The patient appears to have tolerated the procedure well and with no complications. All digits were well vascularized at the conclusion of the case.
--- NOTE | 2025-03-18 09:39 | MHC.SHP ---
Pre-Procedural Eval Section A - 24 Hr Update-Section A only Date of Service: 03/18/25 The patient is an INPATIENT: No Changes since office visit: No Cold of Flu in the past 2 weeks, No New Medical Problems, No Changes in Medication and No Patient answered all questions The patient has been examined within 24 hours of the surgical procedure. The History & Physical has been completed within 30 days and I have reviewed it.: Yes Section B - Complete if H&P > 30 days Chief Complaint: Trigger finger, left middle finger Allergies: Allergies Allergy/AdvReac Type Severity Reaction Status Date / Time No Known Drug Allergies Allergy Unknown Unknown Verified 02/05/25 14:06 Plan Diagnosis/Plan: Unchanged I have reviewed the history and physical and performed a pertinent physical examination on my patient. No changes have occurred unless specified. Time Spent With Patient Time: Total time managing care of this patient today ____ minutes.
[2025-03-18 09:57] VITALS: BP 125/57; PULSE 74; RESP 15; TEMP 36.5; O2SAT 96; BMI 23.6
[2025-03-18 12:48] VITALS: BP 104/50; PULSE 71; O2SAT 98
== END 2025-03-18 13:22 | disposition home or self-care (01) ==
PROVIDERS: PCP Internal Medicine; Visit Provider Orthopaedic Surgery
PROC: (CPT 26055; principal; 2025-03-18 11:00)
DX: M65.332 Trigger finger, left middle finger (principal); M21.242 Flexion deformity, left finger joints; M24.542 Contracture, left hand; M50.00 Cervical disc disorder with myelopathy, unspecified cervical region; G25.9 Extrapyramidal and movement disorder, unspecified; F32.A Depression, unspecified; Z98.890 Other specified postprocedural states; Z87.891 Personal history of nicotine dependence; Z99.89 Dependence on other enabling machines and devices
CPT/HCPCS: 26055; J0165; J2003

== ENCOUNTER → 2025-03-18 09:30 | Outpatient (BNV) | payer MEDICARE, BC, SELFPAY | PROVIDERS: PCP Internal Medicine; Visit Provider Orthopaedic Surgery | DX: M65.332 Trigger finger, left middle finger (principal); M24.542 Contracture, left hand | CPT/HCPCS: 26055 ==

== ENCOUNTER 2025-04-03 13:33 | Outpatient (AMB) | payer MEDICARE, BC, SELFPAY ==
--- NOTE | 2025-04-03 14:12 | A.OFFVIS_ITS ---
Vital Signs 04/03/25 14:13 Height 6 ft Weight 174 lb BMI 23.6 Intake Visit Reasons: PO LT MF trigger/closed manipulation 03/18/25 AR Intake Note: Aneudy is a 74 year old left hand dominant male who presents today for a Post- Operative Visit status post Left Middle Finger Trigger Release & PIP Joint Manipulation performed by Dr. Domingo on 03/18/25. Patient reports he is doing well. He expresses how happy he is with his results. He states his finger is no longer triggering. Allergies No Known Drug Allergies Allergy (Unknown, Verified 04/03/25 14:13) Unknown HPI HPI PO LT MF trigger/closed manipulation 03/18/25 AR: Details: Aneudy is a 74 year old left hand dominant male who presents today for a Post- Operative Visit status post Left Middle Finger Trigger Release & PIP Joint Manipulation performed by Dr. Domingo on 03/18/25. Patient reports he is doing well. He expresses how happy he is with his results. Patient states he does have some swelling around the incision site, that this is not painful. He states his finger is no longer triggering. [facility] Medical History (Updated 01/02/25 @ 13:44 by Raj Sanchez) Cervical myelopathy Movement disorder Depression Surgical History Previous back surgery History of tonsillectomy Family History Mother No problems noted. Father No problems noted. 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 Neuro: Normal sensation of the tips of all digits of the left hand at this time Vascular: Cap refill brisk Pain: No tenderness to palpation about the incision site over A1 kait of the left middle finger ROM: Patient is able to make a closed fist and extend all digits of the left hand fully Skin: Well-approximated incision site noted over the A1 kait of the left middle finger No lacerations or abrasions. 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 Status post left middle finger trigger release DOS 03/18/2025 Patient appears to be recovering well postoperatively Patient is educated about the typical recovery course No under water times one-week, 2 lb weight limit x2 weeks One-week course of Augmentin is sent out of an abundance of caution due to swelling and mild erythema that has surrounding the incision site Patient is educated to not use band aids, and should be using nonstick roller gauze and Coban as this we will absorb moisture rather than trapping it like Band-Aids will Follow-up in 1 week for wound check Patient understands this and is amenable to this plan Medications: New amoxicillin-pot clavulanate 875-125 mg 1 tab PO BID 14 tabs 0RF 7 days Coding Level of Care Code Global (95659) Diagnoses Trigger middle finger of left hand M65.332 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
[2025-04-03 14:13] VITALS: BMI 23.6
--- OUTSIDE RECORDS SUMMARY | 2025-04-03 16:41 | XMS_ITS | Encounter Summary ---
Author Organization [facility] Address [address] [place] [address] Phone Care Team Providers Care Video Game Creator Name Role Phone Lawrence Santoyo MD Primary Care Provider + Reason for Referral * Consultation (Elective) - Closed Specialty Diagnoses / Procedures Referred By Contac t Referred To Contact Neurology Diagnoses Abnormal MRI Apraxic gait Lawrence Santoyo MD Phone: tel: fax: [address] [address] Phone: tel: Referral ID Status Reason Start Date Expiration Date Visits Re quested Visits Authorized [id number] Closed 04/15/2020 04/15/2021 1 1 Encounter Details Date Type Department Care Team (Latest Contact Info) Description 04/15/2020 Transcribe Orders [facility] Department of Neurology [address], [address] [place] [address] Lawrence Santoyo MD [address] [place] [id number] Abnormal MRI (Primary Dx); Apraxic gait Social [...] Associated Diagnoses Order Schedule Ambulatory referral to [facility] Neurology Outpatient Referral Routine Abnormal MRI Apraxic gait Ordered: 04/15/2020 documented as of this encounter Visit Diagnoses Diagnosis Abnormal MRI- Primary Other nonspecific (abnormal) findings on radiological and other examinations of body structure Apraxic gait Other symbolic dysfunction documented in this encounter Care Teams Video Game Creator Relationship Specialty Start Date End Date Lawrence Santoyo MD PCP - General Internal Medicine 02/15/20 documented as of this encounter Additional Source Comments The information contained in this document represents components of the legal health record. It is not the complete legal health record.[facility]
--- OUTSIDE RECORDS SUMMARY | 2025-04-03 16:41 | XMS_ITS | Clinical Summary ---
Author Organization [facility] [address] [facility] Address [address] [place] [address] Phone Care Team Providers Care Desktop Support Consultant Name Role Phone Lawrence Santoyo MD Primary Care Provider [phone] Surgical History Surgery Date Site/Laterality Comments OTHER SURGICAL HISTORY PROCEDURE: [place] ARTHRD ANT INTERBODY DECOMPRESS CERVICAL BELW C2; COMMENT: Cervical Disc Surgery Dr.. Feliz OTHER SURGICAL HISTORY PROCEDURE: [place] ARTH[place] ANT INTERBODY DECOMPRESS CERVICAL BELW C2; COMMENT: Cervical Discectomy, Fusion C4-C5 10/30/19 Dr. Cheney OTHER SURGICAL HISTORY PROCEDURE: [place] FACETECTOMY & FORAMOTOMY 1 VRT SGM LUMBAR; COMMENT: Lumbar Laminectomy 03/24/20 Dr. Cheney Medical History Medical History Date Comments Other cervical disc displace ment, unspecified cervical region DX:Other cervical disc dis placement, unspecified cervical region Pain in right shoulder DX:Pain i n right shoulder Spinal stenosis of lumbar region DX:Spinal stenosis of lumbar region Bipolar disorder ([facility] V2 4, [facility] V28) DX:Bipolar disorder ([facility]) COPD (chronic obstructive pu lmonary disease) ([facility] V24, [facility] V28) DX:COPD (chronic o bstructive pulmonary disease) ([facility]) Smoking DX:Smoking Venous insufficiency DX:Venous i nsufficiency Tear of rotator cuff DX:Tear of rotator cuff Social History Tobacco Use Types Packs/Day Years Used Date Smoking Tobacco: Former Cigarettes 0 Q uit: 05/09/2018 Smokeless Tobacco: Never Alcohol [...] Risk Assessment 04/10/2022 Hepatitis C Screening 04/10/2022 Medicare Annual Wellness Visit 04/10/2022 Social Influencers of Health Screening 04/10/2022 Depression Screening 05/09/2024 COVID-19 Vaccine ( season) [...] on patient's age to complete this topic Insurance MEDICARE [facility] Member Subscriber Plan / Payer (Ef fective 2024-Present) Name:RAY CRUMP Relation to Subscriber:Self Name:Ray Crump Payer ID:[id number] Group ID:[id number] Type:Not on file Address: [address] [place] [address] Care Teams Desktop Support Consultant Relationship Specialty Start Date End Date Lawrence Santoyo MD [address] [place] [phone] PCP - General Internal Medicine 07/09/19
--- OUTSIDE RECORDS SUMMARY | 2025-04-03 16:41 | XMS_ITS | Clinical Summary ---
Author Organization [employer] [facility] Address [address] [place] [address] Care Team Providers Care Teaching Dietitian Name Role Phone Unavailable Primary Care Provider [...] this topic Aneudy Smiley Personal/Family Self 1950 [address] [place] [address]
--- OUTSIDE RECORDS SUMMARY | 2025-04-03 16:41 | XMS_ITS | Clinical Summary ---
Author Organization [facility] Address [address] [place] [phone] Phone Care Team Providers Care Product Responsibility Liaison Name Role Phone Lawrence Santoyo MD Primary [...] file Medical Devices Not on file Insurance [facility] MEDICARE PART A & B [facility] MEDICARE PART A & B [facility] MEDICARE PART A & B [place] [employer] [facility] PART A & B [facility] MEDICARE PART A & B [facility] MEDICARE PART A & B [facility] MEDICARE PART A & B [facility] MEDICARE PART A & B [facility] MEDICARE PART A & B Care Teams Product Responsibility Liaison Relationship Specialty Start Date End Date Lawrence Santoyo MD PCP - General Internal Medicine 02/15/20 Additional Source Comments The information contained in this document represents components of the legal health record. It is not the complete legal health record.[facility]
== END 2025-04-03 14:47 | disposition home or self-care (01) ==
LOC: HO.HOS 13:34
PROVIDERS: PCP Internal Medicine
DX: M65.332 Trigger finger, left middle finger (principal); M24.549 Contracture, unspecified hand
CPT/HCPCS: 99024

== ENCOUNTER → 2025-04-03 13:33 | Outpatient (BNVA) | payer MEDICARE, BC, SELFPAY | PROVIDERS: PCP Internal Medicine | DX: M65.332 Trigger finger, left middle finger (principal); M24.549 Contracture, unspecified hand; Z98.890 Other specified postprocedural states | CPT/HCPCS: 99212 ==

== ENCOUNTER 2025-04-16 10:49 | Outpatient (AMB) | payer MEDICARE, BC, SELFPAY ==
[2025-04-16 10:50] VITALS: BMI 23.6
--- NOTE | 2025-04-16 10:50 | MHC.OFFVIS ---
Vital Signs 04/16/25 10:50 Height 6 ft Weight 174 lb BMI 23.6 Intake Visit Reasons: PO LT MF trigger/closed manipulation 03/18/25 AR Intake Note: Aneudy is a 74 year old left hand dominant male who presents today Post-Operatively status post Left Middle Finger Trigger Release & PIP Joint Manipulation performed by Dr. Domingo on 03/18/25. He was last seen 04/03/25 where he was advised to avoid underwater activities for 1 week and to remain at a 2 lb weight limit for 2 weeks. Augmentin was sent due to swelling and mild erythema surrounding the incision site. Patient reports today he has completed his antibiotics. He denies any pain, numbness, tingling, finger locking. Patient denies any symptoms today. Allergies No Known Drug Allergies Allergy (Unknown, Verified 04/16/25 10:51) Unknown HPI HPI PO LT MF trigger/closed manipulation 03/18/25 AR: Details: Aneudy is a 74 year old left hand dominant male who presents today Post-Operatively status post Left Middle Finger Trigger Release & PIP Joint Manipulation performed by Dr. Domingo on 03/18/25. He was last seen 04/03/25 where he was advised to avoid underwater activities for 1 week and to remain at a 2 lb weight limit for 2 weeks. Augmentin was sent due to swelling and mild erythema surrounding the incision site. Patient reports today he has completed his antibiotics. He denies any pain, numbness, tingling, finger locking. Patient denies any symptoms today. Reports he is feeling quite well, and does not feel he needs any further intervention. [facility] Medical History (Updated 04/09/25 @ 09:24 by Silvia Malone Reed) Peripheral neuropathy Cervical myelopathy Movement disorder Depression Surgical History Previous back surgery History of tonsillectomy Family History Mother No problems noted. Father No problems noted. 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 Neuro: Normal sensation of the tips of all digits of the left hand at this time Vascular: Cap refill brisk Pain: No tenderness to palpation about the incision site over A1 kait of the left middle finger ROM: Patient is able to make a closed fist and extend all digits of the left hand fully Skin: Well-approximated incision site noted over the A1 kait of the left middle finger No lacerations or abrasions. 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
== END 2025-04-16 11:04 | disposition home or self-care (01) ==
LOC: HO.HOS 10:49
PROVIDERS: PCP Internal Medicine
DX: M65.332 Trigger finger, left middle finger (principal); M24.549 Contracture, unspecified hand
CPT/HCPCS: 99024

== ENCOUNTER → 2025-04-16 10:49 | Outpatient (BNVA) | payer MEDICARE, BC, SELFPAY | PROVIDERS: PCP Internal Medicine | DX: M65.332 Trigger finger, left middle finger (principal); M24.542 Contracture, left hand | CPT/HCPCS: 99212 ==